=== PATIENT | male | born 1950 | race Caucasian/White ===

== ENCOUNTER 2017-03-28 19:27 | Emergency (ER) | payer MEDICARE, OTHER ==
[2017-03-28] MEDS ORDERED: Aspirin 81 MG Tab.Chew PO ONE (19:57)
[2017-03-28] MEDS ORDERED: Sodium Chloride 0.9% 1,000 ML IV SCH (20:00)
[2017-03-28] MEDS ORDERED: Metoprolol Tartrate 5 MG/5 ML SDV IVPUSH ONE (20:03)
[2017-03-28 20:20] LABS: CHLORIDE,CL 101 mmol/L (101-111); SODIUM,NA 136 mmol/L (135-145)
[2017-03-28] MEDS ORDERED: Iopamidol 612 MG/ML 100 ML Bottle IVPUSH ONE (20:35)
--- NOTE | 2017-03-28 21:09 | EDM.PDOC ---
ED HISTORY OF PRESENT ILLNESS - General Chief Complaint: Chest Pain Stated Complaint: CHEST PAINS Time Seen by Provider: 03/28/17 19:49 Source of Information: Reports: Patient History Limitations: Reports: No limitations - History of Present Illness INITIAL COMMENTS - FREE TEXT/NARRATIVE: c/o abdominal pain starting at 11 and heart pounding, chills with tremors better aftery lying down under coats woke hour later sweating. intermittent sharp chest pain across right chest last few seconds discomfort general abdomen below ribs. notes cyclic similar symptoms every 3 weeks for past 3 months with episodes of atrial fib after feeling better has converted. No blood thinners, not on daily aspirin. Started Metoprolol. feeling fatigued since starting with decreased exercise tolerance. Timing/Duration: Reports: Hour(s): Severity: mild Location, General: Reports: chest, abdomen Quality: Reports: Ache (12/05), Dull Associated Symptoms (General): Reports: fever/chills (with rigors), loss of appetite. Denies: cough, nausea/vomiting - Related Data Allergies/ADRs: Allergies Allergy/AdvReac Type Severity Reaction Status Date / Time No Known Allergies Allergy Verified 03/28/17 19:47 Home Meds: Home Meds Metoprolol Succinate [Toprol XL] 1 tab PO DAILY 03/28/17 [History] Past Medical History Cardiovascular History: Reports: Afib Social & Family History - Tobacco Use Smoking Status *Q: Former Smoker Used Tobacco, but Quit: No Second Hand Smoke Exposure: No - Caffeine Use Caffeine Use: Reports: Coffee - Recreational Drug Use Recreational Drug Use: No ED ROS GENERAL - Review of Systems Review Of Systems: See Below Constitutional: Reports: chills HEENT: Reports: No symptoms Respiratory: Reports: No Symptoms Cardiovascular: Reports: Chest pain (points epigastric ), Dyspnea on exertion ( since starting metoprolol), Palpitations. Denies: Edema, Lightheadedness, Orthopnea GI/Abdominal: Reports: Abdominal pain (generalized). Denies: Constipation, Diarrhea, Distension, Nausea : Reports: no symptoms Musculoskeletal: Reports: no symptoms Neurological: Reports: No Symptoms Psychiatric: Reports: No symptoms ED EXAM, GENERAL - Physical Exam Exam: See Below Exam Limited By: No limitations General Appearance: alert, anxious, mild distress Eye Exam: bilateral eye: EOMI, PERRL Ears: normal external exam, normal TMs Nose: normal inspection Throat/Mouth: Normal inspection Head: atraumatic, normocephalic Neck: normal inspection Respiratory/Chest: no respiratory distress, lungs clear, normal breath sounds Cardiovascular: normal peripheral pulses, tachycardia, irregularly irregular ( Atrial fib with vriable rate, sustained 110-150 on admission, ) GI/Abdominal: normal bowel sounds, soft, tender (mid midd upper greater RUQ with deep palpation) Back Exam: normal inspection Extremities: normal inspection Neurological: alert, oriented, normal cognition Psychiatric: normal affect Skin Exam: Warm, Dry, Intact, Normal color. No: Jaundice Course - Vital Signs Last Recorded V/S: Last Vital Signs Temp 97.6 F 03/28/17 19:46 Pulse 91 03/28/17 21:37 Resp 20 03/28/17 19:46 BP 121/77 03/28/17 21:37 Pulse Ox 98 03/28/17 19:46 - Orders/Labs/Meds Orders: Active Orders 24 hr Category Date Time Status EKG 12 Lead [EKG Documentation Completion] [RC] URGENT Care 03/28/17 19:58 Active CULTURE BLOOD [BC] Stat Lab 03/28/17 20:16 Received CULTURE BLOOD [BC] Stat Lab 03/28/17 20:19 Received Blood Culture x2 Reflex Set [OM.PC] Stat Oth 03/28/17 19:57 Ordered Labs: Laboratory Tests 03/28/17 03/28/17 03/28/17 Range/Units 19:50 19:50 19:50 WBC 8.8 (5.0-10.0) 10^3/uL RBC 4.79 (4.6-6.2) 10^6/uL Hgb 14.9 (14.0-18.0) g/dL Hct 43.9 (40.0-54.0) % MCV 91.6 (80-100) fL MCH 31.1 (27.0-34.0) pg MCHC 33.9 (33.0-35.0) g/dL Plt Count 172 (150-450) 10^3/uL Neut % (Auto) 86.3 H (42.2-75.2) % Lymph % (Auto) 5.2 L (20.5-50.1) % [place] % (Auto) 8.2 H (2-8) % Eos % (Auto) 0.1 L (1.0-3.0) % Baso % (Auto) 0.2 (0.0-1.0) % PT (9.0-12.0) SEC INR (0.9-1.2) Sodium 136 (135-145) mmol/L Potassium 4.3 (3.6-5.0) mmol/L Chloride 101 (101-111) mmol/L Carbon Dioxide 25.0 (21.0-31.0) mmol/L Anion Gap 14.3 BUN 10 (7-18) mg/dL Creatinine 0.8 (0.6-1.3) mg/dL Est Cr Clr Drug Dosing 97.00 mL/min Estimated GFR (MDRD) > 60 BUN/Creatinine Ratio 12.50 Glucose 153 H (74-105) mg/dL Calcium 9.0 (8.4-10.2) mg/dl Total Bilirubin 4.4 H (0.2-1.0) mg/dL AST 440 H (10-42) IU/L ALT 451 H (10-60) IU/L Alkaline Phosphatase 87 (42-121) IU/L CK-MB (CK-2) 0.60 (0.4-4.7) ng/mL Troponin I < 0.02 (0.00-0.02) ng/ml Total Protein 6.9 (6.7-8.2) g/dl Albumin 4.0 (3.2-5.5) g/dl Globulin 2.9 Albumin/Globulin Ratio 1.38 Amylase 24 L (28-100) U/L Lipase 24 (22-51) U/L 03/28/17 Range/Units 19:50 WBC (5.0-10.0) 10^3/uL RBC (4.6-6.2) 10^6/uL Hgb (14.0-18.0) g/dL Hct (40.0-54.0) % MCV (80-100) fL MCH (27.0-34.0) pg MCHC (33.0-35.0) g/dL Plt Count (150-450) 10^3/uL Neut % (Auto) (42.2-75.2) % Lymph % (Auto) (20.5-50.1) % [place] % (Auto) (2-8) % Eos % (Auto) (1.0-3.0) % Baso % (Auto) (0.0-1.0) % PT 10.5 (9.0-12.0) SEC INR 1.0 (0.9-1.2) Sodium (135-145) mmol/L Potassium (3.6-5.0) mmol/L Chloride (101-111) mmol/L Carbon Dioxide (21.0-31.0) mmol/L Anion Gap BUN (7-18) mg/dL Creatinine (0.6-1.3) mg/dL Est Cr Clr Drug Dosing mL/min Estimated GFR (MDRD) BUN/Creatinine Ratio Glucose (74-105) mg/dL Calcium (8.4-10.2) mg/dl Total Bilirubin (0.2-1.0) mg/dL AST (10-42) IU/L ALT (10-60) IU/L Alkaline Phosphatase (42-121) IU/L CK-MB (CK-2) (0.4-4.7) ng/mL Troponin I (0.00-0.02) ng/ml Total Protein (6.7-8.2) g/dl Albumin (3.2-5.5) g/dl Globulin Albumin/Globulin Ratio Amylase (28-100) U/L Lipase (22-51) U/L Meds: Medications Discontinued Medications Generic Name Dose Route Start Last Admin Trade Name Freq PRN Reason Stop Dose Admin Aspirin 324 mg 03/28/17 19:57 03/28/17 20:13 Aspirin PO 03/28/17 19:58 324 mg ONETIME ONE Administration Diltiazem HCl 25 mg 03/28/17 21:12 03/28/17 21:27 Diltiazem IVPUSH 03/28/17 21:13 25 mg ONETIME ONE Administration Sodium Chloride 1,000 mls @ 150 mls/hr 03/28/17 20:00 03/28/17 20:13 Normal Saline IV 150 mls/hr ASDIRECTED CHRISSY Administration Diltiazem HCl 100 mg/ Sodium 100 mls @ 5 mls/hr 03/28/17 21:14 03/28/17 21:37 Chloride IV 03/29/17 17:13 5 mls/hr TITRATE ONE Administration Protocol 5 MG/HR Iopamidol 100 ml 03/28/17 20:35 03/28/17 21:26 Isovue-300 (61%) IVPUSH 03/28/17 20:36 Not Given ONETIME ONE Metoprolol Tartrate 5 mg 03/28/17 20:03 03/28/17 20:13 Lopressor IVPUSH 03/28/17 20:04 5 mg ONETIME ONE Administration - Re-Assessments/Exams Free Text/Narrative Re-Assessment/Exam: 03/29/17 05:01 Decrease HR with metoprolol 70's to 120. TC consult [facility] ED. DrUrsula accepting of patient in transfer for further evaluation of Recent onset atrial fibrillation - not anticoagulated to date with poor rate control , significant elevation of LFT's with document gallbladder disease on MR Ursula Guzmán drip initiated prior to transport via [facility]. Tx in stable condition. Departure - Departure Time of Disposition: 22:00 Disposition: DC/Tfer to Acute Hospital 02 Reason for Transfer *Q: Other Condition: fair Clinical Impression: Atypical chest pain, Elevated LFTs Atrial fibrillation Qualifiers: Atrial fibrillation type: paroxysmal Qualified Code(s): I48.0 - Paroxysmal atrial fibrillation Referrals: Ulises Thompson MD [Primary Care Provider] - Forms: ED Department Discharge - My Orders Last 24 Hours: My Active Orders 03/28/17 19:57 Blood Culture x2 Reflex Set [OM.PC] Stat 03/28/17 19:58 EKG 12 Lead [EKG Documentation Completion] [RC] URGENT 03/28/17 20:16 CULTURE BLOOD [BC] Stat 03/28/17 20:19 CULTURE BLOOD [BC] Stat - Assessment/Plan Last 24 Hours: My Active Orders 03/28/17 19:57 Blood Culture x2 Reflex Set [OM.PC] Stat 03/28/17 19:58 EKG 12 Lead [EKG Documentation Completion] [RC] URGENT 03/28/17 20:16 CULTURE BLOOD [BC] Stat 03/28/17 20:19 CULTURE BLOOD [BC] Stat
[2017-03-28] MEDS ORDERED: Diltiazem 25 MG/5 ML SDV IVPUSH ONE (21:12)
[2017-03-28] MEDS ORDERED: Diltiazem 100 MG in Sodium Chloride 0.9% 100 ML IV ONE (21:14)
[2017-03-28 21:38] VITALS: BP 121/77
--- NOTE | 2017-04-24 11:36 | EKG ---
03/28/2017- ASH ESCOTO - EKG per my reading shows atrial fibrillation with rapid ventricular rate around 150s. MOD /[id number]
== END 2017-03-28 22:00 ==
LOC: DL.ED 19:27
DX: I48.0 Paroxysmal atrial fibrillation (principal); R07.89 Other chest pain; R79.89 Other specified abnormal findings of blood chemistry; Z87.891 Personal history of nicotine dependence
CPT/HCPCS: 36415; 71010; 80053; 82150; 82553; 83690; 84484; 85025; 85610; 87040; 93005; 93010; 96361; 96374; 96375; 96376; 99285; A9270; J7030; J7050; J3490

== ENCOUNTER 2021-10-29 16:11 | Inpatient (IN) | payer OTHER ==
--- NOTE | 2021-10-29 16:48 | EDM.PDOC ---
ED HPI GENERAL MEDICAL PROBLEM - General Stated Complaint: AMBULANCE Time Seen by Provider: 10/29/21 16:40 Source of Information: Reports: Patient History Limitations: Reports: No Limitations - History of Present Illness INITIAL COMMENTS - FREE TEXT/NARRATIVE: 71 y/o M c/o sob, cough, nausea since . Pt was diagnosed with COVID using a home test on . His sob and cough have gotten worse over the last few days. Pt reportedly is on eloquis for afib x and was at home in his chair when he got dizzy and fell out of his chair and hit his head on a stool. No loc. ems was called and brought pt to hospital. He has been using his wifes nebulizer at home with little relief. He reports decreased oral intake and urine output. Denies head pain, ctls pain, abd pn, ext pain. - Related Data Allergies Allergy/AdvReac Type Severity Reaction Status Date / Time No Known Allergies Allergy Verified 10/29/21 17:31 Home Meds: Home Meds Metoprolol Succinate [Toprol XL] 100 mg PO DAILY 03/28/17 [History] Aspirin [Adult Low Dose Aspirin EC] 81 mg PO DAILY 02/19/18 [History] Ibuprofen 200 mg PO ASDIRECTED PRN 02/19/18 [History] Apixaban [Eliquis] 5 mg PO BID 10/29/21 [History] Levothyroxine [Synthroid] 50 mcg PO ACBREAKFAST 10/29/21 [History] Past Medical History Cardiovascular History: Reports: Afib Social & Family History - Caffeine Use Caffeine Use: Reports: Coffee Review of Systems - Review of Systems Review Of Systems: Comprehensive ROS is negative, except as noted in HPI. ED EXAM, GENERAL - Physical Exam Exam: See Below Free Text/Narrative:: Primary Survey Airway: open and patient Breathing: regular without additional effort Circulation: no major bleeding noted Deformity: no deformity noted Expose: as appropriate GCS: 15 Secondary Survey HEENT Head: normocephalic, atraumatic Eyes: PERRLA Ears: no obvious trauma, canals open Nose: no deformity, no bleeding, mucosa moist Mouth: no noted trauma Throat: no abnormalities noted Neck: Supple, normal range of motion no cervical tenderness Chest: lung sounds were clear and equal bilaterally, Heart was RRR, no murmurs, rubs or gallop Abdomen: normoactive bowel sounds, no organomegally, no tenderness on palpation Pelvis: stable Extremities: CMS intact Provider Trauma Notes Arrival Time: GCS on Arrival: 15 C-collar present on arrival: no GCS at 1 hour: 15 Off spine board: na Time primary survey: Time secondary survey: Time C-collar cleared: na By: Time removed: na GCS on discharge: Exam Limited By: No Limitations General Appearance: Alert, Mild Distress Eye Exam: Bilateral Eye: PERRL Ears: Normal External Exam, Normal Canal, Hearing Grossly Normal, Normal TMs Nose: Normal Inspection Throat/Mouth: Other (no oral trauma, tongue dry and furrowed. ) Head: Atraumatic, Normocephalic Neck: Normal Inspection, Supple, Non-Tender, Full Range of Motion Respiratory/Chest: Respiratory Distress (tachypnea cough, course breath sounds in the bases) Cardiovascular: Normal Peripheral Pulses, Tachycardia, Irregularly Irregular Peripheral Pulses: 2+: Radial (L), Radial (R) GI/Abdominal: Soft, Non-Tender (Male) Exam: Deferred Rectal (Males) Exam: Deferred Back Exam: Normal Inspection, Full Range of Motion Extremities: Normal Inspection, Normal Range of Motion, Non-Tender, Normal Capillary Refill, No Pedal Edema Neurological: Alert, Oriented Psychiatric: Normal Affect, Normal Mood Skin Exam: Warm, Dry, Intact #1 Interpretation EKG Date: 10/29/21 Time: 16:37 Rhythm: A-Fib Rate (Beats/Min): 159 [place]: Normal P-Wave: Absent QRS: Normal ST-T: Normal QT: Normal EKG Interpretation Comments: afib RVR rate of 159, normal axis, no ectopy or st changes. Course - Orders/Labs/Meds Orders: Active Orders 24 hr Category Date Time Status Peripheral IV Care [RC] . DIRECTED Care 10/29/21 16:18 Active CORONAVIRUS COVID-19 ROM [MOLEC] Stat Lab 10/29/21 18:22 Ordered CULTURE BLOOD [BC] Stat Lab 10/29/21 17:22 Results CULTURE BLOOD [BC] Stat Lab 10/29/21 17:28 Received Diltiazem 125 mg Med 10/29/21 18:15 Active Sodium Chloride 0.9% [Normal Saline] 100 ml IV TITRATE Sodium Chloride 0.9% [Saline Flush] Med 10/29/21 16:17 Active 10 ml FLUSH ASDIRECTED PRN Blood Culture x2 Reflex Set [OM.PC] Stat Oth 10/29/21 16:18 Ordered Peripheral IV Insertion Adult [OM.PC] Routine Oth 10/29/21 16:17 Ordered Medication Orders Diltiazem HCl 125 mg/ Sodium (Chloride) 125 mls @ 5 mls/hr IV TITRATE CHRISSY; Protocol Sodium Chloride (Sodium Chloride 0.9% 10 Ml Syringe) 10 ml FLUSH ASDIRECTED PRN PRN Reason: Keep Vein Open Labs: Laboratory Tests 10/29/21 10/29/21 10/29/21 Range/Units 17:22 17:22 17:22 WBC 5.1 (5.0-10.0) 10^3/uL RBC 4.50 L (4.6-6.2) 10^6/uL Hgb 14.0 (14.0-18.0) g/dL Hct 42.1 (40.0-54.0) % MCV 93.6 (80-100) fL MCH 31.1 (27.0-34.0) pg MCHC 33.3 (33.0-35.0) g/dL Plt Count 128 L (150-450) 10^3/uL Neut % (Auto) 79.9 H (42.2-75.2) % Lymph % (Auto) 11.9 L (20.5-50.1) % [place] % (Auto) 8.0 (2-8) % Eos % (Auto) 0.0 L (1.0-3.0) % Baso % (Auto) 0.2 (0.0-1.0) % Sodium 136 (136-145) mmol/L Potassium 3.7 (3.5-5.1) mmol/L Chloride 100 (98-107) mmol/L Carbon Dioxide 26 (21-32) mmol/L Anion Gap 13.7 H (7-13) mEq/L BUN 25 H (7-18) mg/dL Creatinine 0.85 (0.70-1.30) mg/dL Est Cr Clr Drug Dosing TNP Estimated GFR (MDRD) > 60 BUN/Creatinine Ratio 29.4 (No establ ref range) Glucose 150 H (70-99) mg/dL Lactic Acid 1.1 (0.4-2.0) mmol/L Calcium 8.3 L (8.5-10.1) mg/dL Magnesium 2.0 (1.8-2.4) mg/dL Total Bilirubin 0.5 (0.2-1.0) mg/dL AST 36 (15-37) U/L ALT 41 (16-63) U/L Alkaline Phosphatase 54 (46-116) U/L C-Reactive Protein 3.5 H (0.0-0.9) mg/dL Total Protein 6.3 L (6.4-8.2) g/dL Albumin 2.9 L (3.4-5.0) g/dL Globulin 3.4 Albumin/Globulin Ratio 0.85 Ethyl Alcohol < 3 (0) mg/dL Meds: Medications Generic Name Dose Route Start Last Admin Trade Name Freq PRN Reason Stop Dose Admin Diltiazem HCl 125 mg/ Sodium 125 mls @ 5 mls/hr 10/29/21 18:15 Chloride IV TITRATE CHRISSY Protocol 5 MG/HR Sodium Chloride 10 ml 10/29/21 16:17 Sodium Chloride 0.9% 10 Ml Syringe FLUSH ASDIRECTED PRN Keep Vein Open Discontinued Medications Generic Name Dose Route Start Last Admin Trade Name Freq PRN Reason Stop Dose Admin Aspirin 324 mg 10/29/21 16:53 Aspirin 81 Mg Tab.Chew PO 10/29/21 16:54 ONETIME ONE Diltiazem HCl 20 mg 10/29/21 17:06 Diltiazem 25 Mg/5 Ml Sdv IVPUSH 10/29/21 17:07 ONETIME ONE Methylprednisolone Sodium Succinate 125 mg 10/29/21 17:32 Methylprednisolone Sodium Succinate 125 Mg/2 Ml Sdv IVPUSH 10/29/21 17:33 ONETIME ONE Ondansetron HCl 4 mg 10/29/21 17:06 Ondansetron 4 Mg/2 Ml Sdv IVPUSH 10/29/21 17:07 ONETIME ONE - Re-Assessments/Exams Free Text/Narrative Re-Assessment/Exam: 10/29/21 18:44 I discussed the pt with Dr. Alegria who agreed to admit the pt for treatment of his COVID symptoms and his afib RVR. Departure - Departure Time of Disposition: 18:45 (Dr. Alegria) Disposition: Admitted As Inpatient 65 Condition: Fair Clinical Impression: Atrial fibrillation with RVR, COVID-19 - Discharge Information *PRESCRIPTION DRUG MONITORING PROGRAM REVIEWED*: Not Applicable *COPY OF PRESCRIPTION DRUG MONITORING REPORT IN PATIENT ERICK: Not Applicable - My Orders Last 24 Hours: My Active Orders 10/29/21 16:17 Sodium Chloride 0.9% [Saline Flush] 10 ml FLUSH ASDIRECTED PRN Peripheral IV Insertion Adult [OM.PC] Routine 10/29/21 16:18 Peripheral IV Care [RC] . DIRECTED Blood Culture x2 Reflex Set [OM.PC] Stat 10/29/21 17:22 CULTURE BLOOD [BC] Stat 10/29/21 17:28 CULTURE BLOOD [BC] Stat 10/29/21 18:15 Diltiazem 125 mg Sodium Chloride 0.9% [Normal Saline] 100 ml IV TITRATE 10/29/21 18:22 CORONAVIRUS COVID-19 ROM [MOLEC] Stat - Assessment/Plan Last 24 Hours: My Active Orders 10/29/21 16:17 Sodium Chloride 0.9% [Saline Flush] 10 ml FLUSH ASDIRECTED PRN Peripheral IV Insertion Adult [OM.PC] Routine 10/29/21 16:18 Peripheral IV Care [RC] . DIRECTED Blood Culture x2 Reflex Set [OM.PC] Stat 10/29/21 17:22 CULTURE BLOOD [BC] Stat 10/29/21 17:28 CULTURE BLOOD [BC] Stat 10/29/21 18:15 Diltiazem 125 mg Sodium Chloride 0.9% [Normal Saline] 100 ml IV TITRATE 10/29/21 18:22 CORONAVIRUS COVID-19 ROM [MOLEC] Stat
[2021-10-29] MEDS ORDERED: Aspirin 81 MG Tab.Chew PO ONE (16:53)
[2021-10-29] MEDS ORDERED: Diltiazem 25 MG/5 ML SDV IVPUSH ONE ×3 (17:06→20:48)
[2021-10-29] MEDS ORDERED: Ondansetron 4 MG/2 ML SDV IVPUSH ONE (17:06)
--- NOTE | 2021-10-29 17:24 | CT ---
PROCEDURE INFORMATION: Exam: CT Head Without Contrast Exam date and time: 10/29/2021 4:30 PM Age: 71 years old Clinical indication: Other: Fell hit head on blood thinners TECHNIQUE: Imaging protocol: Computed tomography of the head without contrast. Radiation optimization: All CT scans at this facility use at least one of these dose optimization techniques: automated exposure control; mA and/or kV adjustment per patient size (includes targeted exams where dose is matched to clinical indication); or iterative reconstruction. COMPARISON: No relevant prior studies available. FINDINGS: Brain: Normal. No hemorrhage. Unremarkable white matter. No mass effect. Cerebral ventricles: No ventriculomegaly. Paranasal sinuses: Mucosal thickening in the ethmoid air cells. Mastoid air cells: Visualized mastoid air cells are well aerated. Bones/joints: Unremarkable. No acute fracture. Soft tissues: Unremarkable. IMPRESSION: No acute intracranial pathology
--- NOTE | 2021-10-29 17:25 | CR ---
PROCEDURE INFORMATION: Exam: XR Chest Exam date and time: 10/29/2021 4:42 PM Age: 71 years old Clinical indication: Other: SOB, cough, covid+; Additional info: SOB, coguh, covid+ TECHNIQUE: Imaging protocol: XR of the chest. Views: 1 view. COMPARISON: CR Chest 1V Frontal 03/28/2017 8:12 PM FINDINGS: Lungs: Unremarkable. No consolidation. Pleural spaces: Unremarkable. No pleural effusion. No pneumothorax. Heart/Mediastinum: Unremarkable. No cardiomegaly. Bones/joints: Unremarkable. IMPRESSION: No acute findings.
[2021-10-29] MEDS ORDERED: methylPREDNISolone Sodium Succinate 125 MG/2 ML SDV IVPUSH ONE (17:32)
[2021-10-29 18:01] LABS: ANION GAP 13.7 mEq/L (7-13); CHLORIDE,CL 100 mmol/L (98-107); SODIUM,NA 136 mmol/L (136-145)
[2021-10-29] MEDS: Diltiazem 125 MG in Sodium Chloride 0.9% 100 ML IV SCH (18:48)
[2021-10-29] MEDS: Sodium Chloride 0.9% 10 ML Syringe FLUSH PRN (18:50)
[2021-10-29] MEDS ORDERED: Polyethylene Glycol 3350 Powder 17 GM Packet PO PRN (20:03)
[2021-10-29] MEDS ORDERED: Ondansetron 4 MG/2 ML SDV IVPUSH PRN (20:03)
[2021-10-29] MEDS ORDERED: Acetaminophen 325 MG Tab PO PRN (20:03)
[2021-10-29] MEDS ORDERED: Sodium Chloride 0.9% 10 ML Syringe FLUSH PRN (20:03)
--- NOTE | 2021-10-29 20:03 | PCM.HP ---
H&P History of Present Illness - General Date of Service: 10/29/21 Admit Problem/Dx: Admission Diagnosis/Problem Admission Diagnosis/Problem Atrial fibrillation with rapid ventricular response Source of Information: Patient, Provider History Limitations: Reports: No Limitations - History of Present Illness Initial Comments - Free Text/Narative: Ottoniel is a 71 year old man with PMH significant for obesity, acquired hypothyroidism, paroxysmal atrial fibrillation and recent diagnosis of COVID 19 on 10/20/21 presented to the ED after experiencing a few hours of palpitations. He had associated lightheaded and dizzy feeling. He tried to rest at home but it wasn't effective and he started to feel worse. He initially associated his palpitations with COVID 19 (for which he has had acid reflux, decreased taste sensation and decreased appetite since onset) but with time realized it was similar to sensation he has had in the past during periods of rapid rate. Onset of Symptoms: Reports: Today, Sudden Duration of Symptoms: Reports: Hour(s):, Getting Worse Location: Reports: Chest Quality: Reports: Other (palpitations) Severity: Moderate Improves with: Reports: None Worsens with: Reports: Movement Associated Symptoms: Reports: No Other Symptoms - Related Data Allergies/Adverse Reactions: Allergies Allergy/AdvReac Type Severity Reaction Status Date / Time No Known Allergies Allergy Verified 10/29/21 17:31 Home Medications: Home Meds Metoprolol Succinate [Toprol XL] 100 mg PO DAILY 03/28/17 [History] Aspirin [Adult Low Dose Aspirin EC] 81 mg PO DAILY 02/19/18 [History] Ibuprofen 200 mg PO ASDIRECTED PRN 02/19/18 [History] Apixaban [Eliquis] 5 mg PO BID 10/29/21 [History] Levothyroxine [Synthroid] 50 mcg PO ACBREAKFAST 10/29/21 [History] Past Medical History Cardiovascular History: Reports: Afib Social & Family History - Tobacco Use Tobacco Use Status *Q: Never Tobacco User - Caffeine Use Caffeine Use: Reports: Coffee - Living Situation & Occupation Living situation: Reports: , with Spouse Occupation: Retired H&P Review of Systems - Review of Systems: Review Of Systems: See Below General: Reports: Malaise, Decreased Appetite HEENT: Reports: No Symptoms Pulmonary: Reports: Cough. Denies: Shortness of Breath, Wheezing, Pleuritic Chest Pain, Hemoptysis Cardiovascular: Reports: Palpitations, Dyspnea on Exertion. Denies: Chest Pain, Lightheadedness Gastrointestinal: Reports: Decreased Appetite, Other (acid taste in mouth). Denies: Abdominal Pain, Distension, Nausea, Vomiting Genitourinary: Reports: No Symptoms Musculoskeletal: Reports: No Symptoms Skin: Reports: No Symptoms Neurological: Reports: No Symptoms Hematologic/Lymphatic: Reports: No Symptoms Immunologic: Reports: No Symptoms Exam - Exam Exam: See Below - Exam Quality Assessment: DVT Prophylaxis. No: Supplemental Oxygen, Urinary Catheter, Skin Breakdown General: Alert, Oriented, Cooperative, Mild Distress HEENT: EOMI, Pupils Equal Neck: Supple. No: JVD Lungs: Decreased Breath Sounds (throughout bilateral mid to bases), Rales (scattered in upper to mid airways). No: Rhonchi, Rub, Stridor, Wheezing GI/Abdominal Exam: Soft, Non-Tender, Other (obese) (Male) Exam: Deferred Rectal (Males) Exam: Deferred Back Exam: Full Range of Motion Extremities: Normal Range of Motion, Non-Tender, No Pedal Edema Skin: Warm, Dry Neuro Extensive - Mental Status: Oriented x3, Normal Mood/Affect, Normal Cognition Neuro Extensive - Motor, Sensory, Reflexes: Normal Gait Psychiatric: Normal Affect, Normal Mood - Patient Data Lab Results Last 24 hrs: Laboratory Results - last 24 hr 10/29/21 10/29/21 10/29/21 Range/Units 17:22 17:22 17:22 WBC 5.1 (5.0-10.0) 10^3/uL RBC 4.50 L (4.6-6.2) 10^6/uL Hgb 14.0 (14.0-18.0) g/dL Hct 42.1 (40.0-54.0) % MCV 93.6 (80-100) fL MCH 31.1 (27.0-34.0) pg MCHC 33.3 (33.0-35.0) g/dL Plt Count 128 L (150-450) 10^3/uL Neut % (Auto) 79.9 H (42.2-75.2) % Lymph % (Auto) 11.9 L (20.5-50.1) % [place] % (Auto) 8.0 (2-8) % Eos % (Auto) 0.0 L (1.0-3.0) % Baso % (Auto) 0.2 (0.0-1.0) % Sodium 136 (136-145) mmol/L Potassium 3.7 (3.5-5.1) mmol/L Chloride 100 (98-107) mmol/L Carbon Dioxide 26 (21-32) mmol/L Anion Gap 13.7 H (7-13) mEq/L BUN 25 H (7-18) mg/dL Creatinine 0.85 (0.70-1.30) mg/dL Est Cr Clr Drug Dosing TNP Estimated GFR (MDRD) > 60 BUN/Creatinine Ratio 29.4 (No establ ref range) Glucose 150 H (70-99) mg/dL Lactic Acid 1.1 (0.4-2.0) mmol/L Calcium 8.3 L (8.5-10.1) mg/dL Magnesium 2.0 (1.8-2.4) mg/dL Total Bilirubin 0.5 (0.2-1.0) mg/dL AST 36 (15-37) U/L ALT 41 (16-63) U/L Alkaline Phosphatase 54 (46-116) U/L C-Reactive Protein 3.5 H (0.0-0.9) mg/dL Total Protein 6.3 L (6.4-8.2) g/dL Albumin 2.9 L (3.4-5.0) g/dL Globulin 3.4 Albumin/Globulin Ratio 0.85 Ethyl Alcohol < 3 (0) mg/dL SARS CoV-2 RNA Rapid ROM (NEGATIVE) 10/29/21 Range/Units 18:40 WBC (5.0-10.0) 10^3/uL RBC (4.6-6.2) 10^6/uL Hgb (14.0-18.0) g/dL Hct (40.0-54.0) % MCV (80-100) fL MCH (27.0-34.0) pg MCHC (33.0-35.0) g/dL Plt Count (150-450) 10^3/uL Neut % (Auto) (42.2-75.2) % Lymph % (Auto) (20.5-50.1) % [place] % (Auto) (2-8) % Eos % (Auto) (1.0-3.0) % Baso % (Auto) (0.0-1.0) % Sodium (136-145) mmol/L Potassium (3.5-5.1) mmol/L Chloride (98-107) mmol/L Carbon Dioxide (21-32) mmol/L Anion Gap (7-13) mEq/L BUN (7-18) mg/dL Creatinine (0.70-1.30) mg/dL Est Cr Clr Drug Dosing Estimated GFR (MDRD) BUN/Creatinine Ratio (No establ ref range) Glucose (70-99) mg/dL Lactic Acid (0.4-2.0) mmol/L Calcium (8.5-10.1) mg/dL Magnesium (1.8-2.4) mg/dL Total Bilirubin (0.2-1.0) mg/dL AST (15-37) U/L ALT (16-63) U/L Alkaline Phosphatase (46-116) U/L C-Reactive Protein (0.0-0.9) mg/dL Total Protein (6.4-8.2) g/dL Albumin (3.4-5.0) g/dL Globulin Albumin/Globulin Ratio Ethyl Alcohol (0) mg/dL SARS CoV-2 RNA Rapid ROM Positive H (NEGATIVE) Result Diagrams: 10/29/21 17:22 10/29/21 17:22 Mj Results Last 24 hrs: Microbiology 10/29/21 17:22 Anaerobic Blood Culture - Final Blood - Arm, Right Problem List Initiated/Reviewed/Updated: Yes Orders Last 24hrs: Active Orders 24 hr Category Date Time Status Admission Diagnosis [ADT] Stat ADT 10/29/21 18:46 Ordered Admission Status [Patient Status] [ADT] Routine ADT 10/29/21 18:46 Active Peripheral IV Care [RC] . DIRECTED Care 10/29/21 16:18 Active CULTURE BLOOD [BC] Stat Lab 10/29/21 17:22 Results CULTURE BLOOD [BC] Stat Lab 10/29/21 17:28 Received Diltiazem 125 mg Med 10/29/21 18:15 Active Sodium Chloride 0.9% [Normal Saline] 100 ml IV TITRATE Sodium Chloride 0.9% [Saline Flush] Med 10/29/21 16:17 Active 10 ml FLUSH ASDIRECTED PRN Blood Culture x2 Reflex Set [OM.PC] Stat Oth 10/29/21 16:18 Ordered Peripheral IV Insertion Adult [OM.PC] Routine Oth 10/29/21 16:17 Ordered Medication Orders Diltiazem HCl 125 mg/ Sodium (Chloride) 125 mls @ 5 mls/hr IV TITRATE CHRISSY; Protocol Last Titration: 10/29/21 19:23 Dose: 10 mg/hr, 10 mls/hr Documented by: Admin: 10/29/21 18:48 Dose: 5 mg/hr, 5 mls/hr Documented by: EVE Sodium Chloride (Sodium Chloride 0.9% 10 Ml Syringe) 10 ml FLUSH ASDIRECTED PRN PRN Reason: Keep Vein Open Last Admin: 10/29/21 18:50 Dose: 10 ml Documented by: EVE Assessment/Plan Comment:: ACTIVE PROBLEMS: Atrial fibrillation with RVR Hx of paroxysmal atrial fibrillation. - While in ED rate was in the 150-160 range. cardizem push 20mg given once with minimal improvement after which cardizem gtt was started. Plan: - continue cardizem gtt titration with parameters in order - continue toprol XL 100mg once daily for rate control - eliquis 5mg bid for anticoagulation - telemetry - add on TSH COVID 19 viral infection - received solumedrol 125mg IV in the ED. - currently requiring no supplemental oxygen so does not qualify for any interventions. will continue to monitor - IS every 2 hours while awake - isolation CHRONIC CONDITIONS: - acquired hypothyroidism: continue levothyroxine 50mg every morning - Obesity: BMI 34 on admit
[2021-10-29] MEDS: Apixaban 5 MG Tab PO SCH (21:15)
[2021-10-30] MEDS: Diltiazem 125 MG in Sodium Chloride 0.9% 100 ML IV SCH (06:06)
[2021-10-30] MEDS: Levothyroxine 50 MCG Tab PO SCH (06:07)
[2021-10-30 06:35] LABS: CHLORIDE,CL 101 mmol/L (98-107); SODIUM,NA 138 mmol/L (136-145)
[2021-10-30 06:50] LABS: ANION GAP 16.9 mEq/L (7-13); HEMOGLOBIN A1C 6.3 % (<5.7)
[2021-10-30] MEDS: Aspirin 81 MG Tab.EC PO SCH (08:16)
[2021-10-30] MEDS: Apixaban 5 MG Tab PO SCH ×2 (08:16→20:51)
[2021-10-30] MEDS ORDERED: Metoprolol Succinate 50 MG Tab.ER PO SCH (09:00)
[2021-10-30] MEDS ORDERED: REMDESIVIR 200 MG in Sodium Chloride 0.9% 250 ML IV ONE (12:14)
--- NOTE | 2021-10-30 13:38 | PCM.PN ---
- General Info Date of Service: 10/30/21 Admission Dx/Problem (Free Text): Admission Diagnosis/Problem Admission Diagnosis/Problem Atrial fibrillation with rapid ventricular response Functional Status: Reports: Pain Controlled, Tolerating Diet, Incentive Spirometry - Review of Systems General: Reports: No Symptoms, Fatigue HEENT: Reports: Glasses Pulmonary: Reports: Shortness of Breath, Cough, Sputum. Denies: Pleuritic Chest Pain, Hemoptysis, Wheezing Cardiovascular: Reports: Palpitations, Dyspnea on Exertion. Denies: Edema, Lightheadedness Gastrointestinal: Reports: Decreased Appetite, Diarrhea. Denies: Abdominal Pain, Constipation, Nausea, Vomiting Genitourinary: Reports: No Symptoms Musculoskeletal: Reports: No Symptoms Skin: Reports: No Symptoms Neurological: Reports: No Symptoms Psychiatric: Reports: No Symptoms - Patient Data Vitals - Most Recent: Last Vital Signs Temp 96.2 F L 10/30/21 08:15 Pulse 91 10/30/21 08:16 Resp 17 10/30/21 08:15 BP 121/95 H 10/30/21 08:16 Pulse Ox 95 10/30/21 08:15 Weight - Most Recent: 248 lb 14.4 oz I&O - Last 24 Hours: Intake & Output 10/29/21 10/30/21 10/30/21 22:59 06:59 14:59 Intake Total 500 125 500 Balance 500 125 500 Lab Results Last 24 Hours: Laboratory Results - last 24 hr 10/29/21 10/29/21 10/29/21 Range/Units 17:22 17:22 17:22 WBC 5.1 (5.0-10.0) 10^3/uL RBC 4.50 L (4.6-6.2) 10^6/uL Hgb 14.0 (14.0-18.0) g/dL Hct 42.1 (40.0-54.0) % MCV 93.6 (80-100) fL MCH 31.1 (27.0-34.0) pg MCHC 33.3 (33.0-35.0) g/dL Plt Count 128 L (150-450) 10^3/uL Neut % (Auto) 79.9 H (42.2-75.2) % Lymph % (Auto) 11.9 L (20.5-50.1) % [place] % (Auto) 8.0 (2-8) % Eos % (Auto) 0.0 L (1.0-3.0) % Baso % (Auto) 0.2 (0.0-1.0) % Sodium 136 (136-145) mmol/L Potassium 3.7 (3.5-5.1) mmol/L Chloride 100 (98-107) mmol/L Carbon Dioxide 26 (21-32) mmol/L Anion Gap 13.7 H (7-13) mEq/L BUN 25 H (7-18) mg/dL Creatinine 0.85 (0.70-1.30) mg/dL Est Cr Clr Drug Dosing TNP Estimated GFR (MDRD) > 60 BUN/Creatinine Ratio 29.4 (No establ ref range) Glucose 150 H (70-99) mg/dL Hemoglobin A1c (<5.7) % Lactic Acid 1.1 (0.4-2.0) mmol/L Calcium 8.3 L (8.5-10.1) mg/dL Magnesium 2.0 (1.8-2.4) mg/dL Total Bilirubin 0.5 (0.2-1.0) mg/dL Direct Bilirubin (0.0-0.2) mg/dL AST 36 (15-37) U/L ALT 41 (16-63) U/L Alkaline Phosphatase 54 (46-116) U/L C-Reactive Protein 3.5 H (0.0-0.9) mg/dL Total Protein 6.3 L (6.4-8.2) g/dL Albumin 2.9 L (3.4-5.0) g/dL Globulin 3.4 Albumin/Globulin Ratio 0.85 TSH, Ultra Sensitive (0.36-3.74) uIU/mL Ethyl Alcohol < 3 (0) mg/dL SARS CoV-2 RNA Rapid ROM (NEGATIVE) 10/29/21 10/29/21 10/30/21 Range/Units 17:22 18:40 05:45 WBC 3.5 L (5.0-10.0) 10^3/uL RBC 4.53 L (4.6-6.2) 10^6/uL Hgb 14.3 (14.0-18.0) g/dL Hct 42.5 (40.0-54.0) % MCV 93.8 (80-100) fL MCH 31.6 (27.0-34.0) pg MCHC 33.6 (33.0-35.0) g/dL Plt Count 120 L (150-450) 10^3/uL Neut % (Auto) (42.2-75.2) % Lymph % (Auto) (20.5-50.1) % [place] % (Auto) (2-8) % Eos % (Auto) (1.0-3.0) % Baso % (Auto) (0.0-1.0) % Sodium (136-145) mmol/L Potassium (3.5-5.1) mmol/L Chloride (98-107) mmol/L Carbon Dioxide (21-32) mmol/L Anion Gap (7-13) mEq/L BUN (7-18) mg/dL Creatinine (0.70-1.30) mg/dL Est Cr Clr Drug Dosing Estimated GFR (MDRD) BUN/Creatinine Ratio (No establ ref range) Glucose (70-99) mg/dL Hemoglobin A1c (<5.7) % Lactic Acid (0.4-2.0) mmol/L Calcium (8.5-10.1) mg/dL Magnesium (1.8-2.4) mg/dL Total Bilirubin (0.2-1.0) mg/dL Direct Bilirubin (0.0-0.2) mg/dL AST (15-37) U/L ALT (16-63) U/L Alkaline Phosphatase (46-116) U/L C-Reactive Protein (0.0-0.9) mg/dL Total Protein (6.4-8.2) g/dL Albumin (3.4-5.0) g/dL Globulin Albumin/Globulin Ratio TSH, Ultra Sensitive 1.02 (0.36-3.74) uIU/mL Ethyl Alcohol (0) mg/dL SARS CoV-2 RNA Rapid ROM Positive H (NEGATIVE) 10/30/21 10/30/21 10/30/21 Range/Units 05:45 05:45 05:45 WBC (5.0-10.0) 10^3/uL RBC (4.6-6.2) 10^6/uL Hgb (14.0-18.0) g/dL Hct (40.0-54.0) % MCV (80-100) fL MCH (27.0-34.0) pg MCHC (33.0-35.0) g/dL Plt Count (150-450) 10^3/uL Neut % (Auto) (42.2-75.2) % Lymph % (Auto) (20.5-50.1) % [place] % (Auto) (2-8) % Eos % (Auto) (1.0-3.0) % Baso % (Auto) (0.0-1.0) % Sodium 138 (136-145) mmol/L Potassium 3.9 (3.5-5.1) mmol/L Chloride 101 (98-107) mmol/L Carbon Dioxide 24 (21-32) mmol/L Anion Gap 16.9 H (7-13) mEq/L BUN 25 H (7-18) mg/dL Creatinine 0.85 (0.70-1.30) mg/dL Est Cr Clr Drug Dosing 83.67 Estimated GFR (MDRD) > 60 BUN/Creatinine Ratio (No establ ref range) Glucose 257 H (70-99) mg/dL Hemoglobin A1c 6.3 H (<5.7) % Lactic Acid (0.4-2.0) mmol/L Calcium 8.5 (8.5-10.1) mg/dL Magnesium 2.3 (1.8-2.4) mg/dL Total Bilirubin (0.2-1.0) mg/dL Direct Bilirubin 0.1 (0.0-0.2) mg/dL AST (15-37) U/L ALT (16-63) U/L Alkaline Phosphatase (46-116) U/L C-Reactive Protein (0.0-0.9) mg/dL Total Protein (6.4-8.2) g/dL Albumin (3.4-5.0) g/dL Globulin Albumin/Globulin Ratio TSH, Ultra Sensitive (0.36-3.74) uIU/mL Ethyl Alcohol (0) mg/dL SARS CoV-2 RNA Rapid ROM (NEGATIVE) Mj Results Last 24 Hours: Microbiology 10/29/21 17:22 Anaerobic Blood Culture - Final Blood - Arm, Right Med Orders - Current: Current Medications Acetaminophen (Acetaminophen 325 Mg Tab) 650 mg PO Q4H PRN PRN Reason: Pain (Mild 1-3)/fever Apixaban (Apixaban 5 Mg Tab) 5 mg PO BID [facility] Last Admin: 10/30/21 08:16 Dose: 5 mg Documented by: Aspirin (Aspirin 81 Mg Tab.Ec) 81 mg PO DAILY [facility] Last Admin: 10/30/21 08:16 Dose: 81 mg Documented by: Dexamethasone (Dexamethasone 6 Mg Tablet) 6 mg PO DAILY [facility] Stop: 11/08/21 09:01 Diltiazem HCl 125 mg/ Sodium (Chloride) 125 mls @ 5 mls/hr IV TITRATE CHRISSY; Protocol Last Admin: 10/30/21 06:06 Dose: 5 mg/hr, 5 mls/hr Documented by: Remdesivir 100 mg/ Sodium (Chloride) 100 mls @ 100 mls/hr IV Q24H [facility] Stop: 11/03/21 12:59 Levothyroxine Sodium (Levothyroxine 50 Mcg Tab) 50 mcg PO ACBREAKFAST [facility] Last Admin: 10/30/21 06:07 Dose: 50 mcg Documented by: Metoprolol Succinate (Metoprolol Succinate 50 Mg Tab.Er) 150 mg PO DAILY [facility] Ondansetron HCl (Ondansetron 4 Mg/2 Ml Sdv) 4 mg IVPUSH Q4H PRN PRN Reason: Nausea/Vomiting Polyethylene Glycol (Polyethylene Glycol 3350 Powder 17 Gm Packet) 17 gm PO DAILY PRN PRN Reason: Constipation Sodium Chloride (Sodium Chloride 0.9% 10 Ml Syringe) 10 ml FLUSH ASDIRECTED PRN PRN Reason: Keep Vein Open Last Admin: 10/29/21 18:50 Dose: 10 ml Documented by: Sodium Chloride (Sodium Chloride 0.9% 10 Ml Syringe) 10 ml FLUSH ASDIRECTED PRN PRN Reason: Keep Vein Open Discontinued Medications Aspirin (Aspirin 81 Mg Tab.Chew) 324 mg PO ONETIME ONE Stop: 10/29/21 16:54 Last Admin: 10/29/21 20:35 Dose: Not Given Documented by: Diltiazem HCl (Diltiazem 25 Mg/5 Ml Sdv) 20 mg IVPUSH ONETIME ONE Stop: 10/29/21 17:07 Last Admin: 10/29/21 17:14 Dose: 20 mg Documented by: Diltiazem HCl (Diltiazem 25 Mg/5 Ml Sdv) 5 mg IVPUSH ONETIME ONE Stop: 10/29/21 19:11 Last Admin: 10/29/21 19:22 Dose: 5 mg Documented by: Diltiazem HCl (Diltiazem 25 Mg/5 Ml Sdv) 5 mg IVPUSH ONETIME ONE Stop: 10/29/21 20:49 Last Admin: 10/29/21 21:14 Dose: 5 mg Documented by: Remdesivir 200 mg/ Sodium (Chloride) 250 mls @ 250 mls/hr IV ONETIME ONE Stop: 10/30/21 13:13 Methylprednisolone Sodium Succinate (Methylprednisolone Sodium Succinate 125 Mg/2 Ml Sdv) 125 mg IVPUSH ONETIME ONE Stop: 10/29/21 17:33 Last Admin: 10/29/21 17:47 Dose: 125 mg Documented by: Metoprolol Succinate (Metoprolol Succinate 50 Mg Tab.Er) 100 mg PO DAILY CHRISSY Last Admin: 10/30/21 08:16 Dose: 100 mg Documented by: Ondansetron HCl (Ondansetron 4 Mg/2 Ml Sdv) 4 mg IVPUSH ONETIME ONE Stop: 10/29/21 17:07 Last Admin: 10/29/21 17:18 Dose: 4 mg Documented by: Comments:: feels weak still today. increased shortness of breath overnight has continued today. - Exam Quality Assessment: Supplemental Oxygen, DVT Prophylaxis. No: Urine Catheter, Skin Breakdown General: Alert, Oriented, Mild Distress. No: Lethargic HEENT: EOMI, Mucous Membr. Moist/[place] Neck: Supple, No JVD Lungs: Decreased Breath Sounds (in bilateral mid to lower lung [place]), Rales (scattered throughout mid lung [place] bilaterally), Other (increased work of breathing). No: Rhonchi, Rub, Stridor, Wheezing Cardiovascular: No Murmurs, Irregular Rhythm. No: Bradycardia, Gallops, Rubs GI/Abdominal Exam: Soft, Non-Tender (Male) Exam: Deferred Back Exam: Full Range of Motion Extremities: Normal Range of Motion, Non-Tender, No Pedal Edema Skin: Warm, Dry Neurological: No New Focal Deficit Psy/Mental Status: Normal Affect, Normal Mood - Patient Data Lab Results Last 24 hrs: Laboratory Results - last 24 hr 10/29/21 10/29/21 10/29/21 Range/Units 17:22 17:22 17:22 WBC 5.1 (5.0-10.0) 10^3/uL RBC 4.50 L (4.6-6.2) 10^6/uL Hgb 14.0 (14.0-18.0) g/dL Hct 42.1 (40.0-54.0) % MCV 93.6 (80-100) fL MCH 31.1 (27.0-34.0) pg MCHC 33.3 (33.0-35.0) g/dL Plt Count 128 L (150-450) 10^3/uL Neut % (Auto) 79.9 H (42.2-75.2) % Lymph % (Auto) 11.9 L (20.5-50.1) % [place] % (Auto) 8.0 (2-8) % Eos % (Auto) 0.0 L (1.0-3.0) % Baso % (Auto) 0.2 (0.0-1.0) % Sodium 136 (136-145) mmol/L Potassium 3.7 (3.5-5.1) mmol/L Chloride 100 (98-107) mmol/L Carbon Dioxide 26 (21-32) mmol/L Anion Gap 13.7 H (7-13) mEq/L BUN 25 H (7-18) mg/dL Creatinine 0.85 (0.70-1.30) mg/dL Est Cr Clr Drug Dosing TNP Estimated GFR (MDRD) > 60 BUN/Creatinine Ratio 29.4 (No establ ref range) Glucose 150 H (70-99) mg/dL Hemoglobin A1c (<5.7) % Lactic Acid 1.1 (0.4-2.0) mmol/L Calcium 8.3 L (8.5-10.1) mg/dL Magnesium 2.0 (1.8-2.4) mg/dL Total Bilirubin 0.5 (0.2-1.0) mg/dL Direct Bilirubin (0.0-0.2) mg/dL AST 36 (15-37) U/L ALT 41 (16-63) U/L Alkaline Phosphatase 54 (46-116) U/L C-Reactive Protein 3.5 H (0.0-0.9) mg/dL Total Protein 6.3 L (6.4-8.2) g/dL Albumin 2.9 L (3.4-5.0) g/dL Globulin 3.4 Albumin/Globulin Ratio 0.85 TSH, Ultra Sensitive (0.36-3.74) uIU/mL Ethyl Alcohol < 3 (0) mg/dL SARS CoV-2 RNA Rapid ROM (NEGATIVE) 10/29/21 10/29/21 10/30/21 Range/Units 17:22 18:40 05:45 WBC 3.5 L (5.0-10.0) 10^3/uL RBC 4.53 L (4.6-6.2) 10^6/uL Hgb 14.3 (14.0-18.0) g/dL Hct 42.5 (40.0-54.0) % MCV 93.8 (80-100) fL MCH 31.6 (27.0-34.0) pg MCHC 33.6 (33.0-35.0) g/dL Plt Count 120 L (150-450) 10^3/uL Neut % (Auto) (42.2-75.2) % Lymph % (Auto) (20.5-50.1) % [place] % (Auto) (2-8) % Eos % (Auto) (1.0-3.0) % Baso % (Auto) (0.0-1.0) % Sodium (136-145) mmol/L Potassium (3.5-5.1) mmol/L Chloride (98-107) mmol/L Carbon Dioxide (21-32) mmol/L Anion Gap (7-13) mEq/L BUN (7-18) mg/dL Creatinine (0.70-1.30) mg/dL Est Cr Clr Drug Dosing Estimated GFR (MDRD) BUN/Creatinine Ratio (No establ ref range) Glucose (70-99) mg/dL Hemoglobin A1c (<5.7) % Lactic Acid (0.4-2.0) mmol/L Calcium (8.5-10.1) mg/dL Magnesium (1.8-2.4) mg/dL Total Bilirubin (0.2-1.0) mg/dL Direct Bilirubin (0.0-0.2) mg/dL AST (15-37) U/L ALT (16-63) U/L Alkaline Phosphatase (46-116) U/L C-Reactive Protein (0.0-0.9) mg/dL Total Protein (6.4-8.2) g/dL Albumin (3.4-5.0) g/dL Globulin Albumin/Globulin Ratio TSH, Ultra Sensitive 1.02 (0.36-3.74) uIU/mL Ethyl Alcohol (0) mg/dL SARS CoV-2 RNA Rapid ROM Positive H (NEGATIVE) 10/30/21 10/30/21 10/30/21 Range/Units 05:45 05:45 05:45 WBC (5.0-10.0) 10^3/uL RBC (4.6-6.2) 10^6/uL Hgb (14.0-18.0) g/dL Hct (40.0-54.0) % MCV (80-100) fL MCH (27.0-34.0) pg MCHC (33.0-35.0) g/dL Plt Count (150-450) 10^3/uL Neut % (Auto) (42.2-75.2) % Lymph % (Auto) (20.5-50.1) % [place] % (Auto) (2-8) % Eos % (Auto) (1.0-3.0) % Baso % (Auto) (0.0-1.0) % Sodium 138 (136-145) mmol/L Potassium 3.9 (3.5-5.1) mmol/L Chloride 101 (98-107) mmol/L Carbon Dioxide 24 (21-32) mmol/L Anion Gap 16.9 H (7-13) mEq/L BUN 25 H (7-18) mg/dL Creatinine 0.85 (0.70-1.30) mg/dL Est Cr Clr Drug Dosing 83.67 Estimated GFR (MDRD) > 60 BUN/Creatinine Ratio (No establ ref range) Glucose 257 H (70-99) mg/dL Hemoglobin A1c 6.3 H (<5.7) % Lactic Acid (0.4-2.0) mmol/L Calcium 8.5 (8.5-10.1) mg/dL Magnesium 2.3 (1.8-2.4) mg/dL Total Bilirubin (0.2-1.0) mg/dL Direct Bilirubin 0.1 (0.0-0.2) mg/dL AST (15-37) U/L ALT (16-63) U/L Alkaline Phosphatase (46-116) U/L C-Reactive Protein (0.0-0.9) mg/dL Total Protein (6.4-8.2) g/dL Albumin (3.4-5.0) g/dL Globulin Albumin/Globulin Ratio TSH, Ultra Sensitive (0.36-3.74) uIU/mL Ethyl Alcohol (0) mg/dL SARS CoV-2 RNA Rapid ROM (NEGATIVE) Result Diagrams: 10/30/21 05:45 10/30/21 05:45 Mj Results Last 24 hrs: Microbiology 10/29/21 17:22 Anaerobic Blood Culture - Final Blood - Arm, Right Sepsis Event Note - Evaluation Sepsis Screening Result: Possible Sepsis Risk - Focused Exam Vital Signs: Vital Signs Temp Pulse Pulse Resp BP BP Pulse Ox 10/30/21 08:16 91 121/95 H 10/30/21 08:15 96.2 F L 94 17 121/95 H 95 10/30/21 04:00 97.6 F 92 16 126/87 94 L - Problem List Review Problem List Initiated/Reviewed/Updated: Yes - My Orders Last 24 Hours: My Active Orders 10/29/21 20:03 Patient Status [ADT] Routine Height and Weight [RC] .PRN Oxygen Therapy [RC] PRN Up With Assistance [RC] ASDIRECTED VTE/DVT Education [RC] 08,20 Vital Signs [RC] 20,00,04,08,12,16 Acetaminophen [TylenoL] 650 mg PO Q4H PRN Ondansetron [Zofran] 4 mg IVPUSH Q4H PRN Sodium Chloride 0.9% [Saline Flush] 10 ml FLUSH ASDIRECTED PRN polyethylene glycoL 3350 [MiraLAX] 17 gm PO DAILY PRN Saline Lock Insert [OM.PC] Routine Resuscitation Status Routine 10/29/21 20:05 Cardiac Monitoring [RC] 08,20 Pulse Oximetry [RC] CONTINUOUS 10/29/21 20:07 Incentive Spirometry [RT Incentive Spirometry] [RC] Q2HWA 10/29/21 20:35 Isolation [COMM] Routine 10/29/21 20:36 Activity as Tolerated [RC] .Routine 10/29/21 21:00 Apixaban [Eliquis] 5 mg PO BID 10/30/21 06:00 Levothyroxine [Synthroid] 50 mcg PO ACBREAKFAST 10/30/21 09:00 Aspirin [Halfprin] 81 mg PO DAILY 10/30/21 12:16 Isolation [COMM] Stat 10/30/21 12:30 dexAMETHasone 6 mg PO DAILY 10/31/21 09:00 Metoprolol Succinate [Toprol XL] 150 mg PO DAILY 10/31/21 10:38 BASIC METABOLIC PANEL,BMP [CHEM] Routine 10/31/21 10:39 CBC W/O DIFF,HEMOGRAM [HEME] Routine 10/31/21 12:00 Remdesivir 100 mg Sodium Chloride 0.9% [Normal Saline AdvBag] 100 ml IV Q24H 10/31/21 12:30 BILIRUBIN DIRECT [CHEM] DAILY 11/01/21 12:30 BILIRUBIN DIRECT [CHEM] DAILY 11/02/21 12:30 BILIRUBIN DIRECT [CHEM] DAILY 11/03/21 12:30 BILIRUBIN DIRECT [CHEM] DAILY - Plan Plan:: ACTIVE PROBLEMS: Atrial fibrillation with RVR Hx of paroxysmal atrial fibrillation. - While in ED rate was in the 150-160 range. cardizem push 20mg given once with minimal improvement after which cardizem gtt was started. - TSH WNL Plan: - continue cardizem gtt titration with parameters in order - increase toprol XL 100mg once daily to 150mg once daily for rate control - eliquis 5mg bid for anticoagulation - telemetry COVID 19 viral infection - received solumedrol 125mg IV in the ED. - currently requiring 2L supplemental oxygen to maintain saturations >90%. Plan: - start dexamethasone 6mg daily for 10 days and remdesivir daily for 5 days with load dose today - IS every 2 hours while awake - isolation - wean oxygen as tolerated CHRONIC CONDITIONS: - acquired hypothyroidism: continue levothyroxine 50mg every morning - Obesity: BMI 34 on admit MDM/Interval Hx: increased oxygen requirements to 2L overnight continues today during the day. pt now qualifies for remdesivir and dexamethasone. HR well controlled on cardizem gtt. increase toprol XL to 150mg once daily and wean ox ygen as tolerated. stressed importance of IS and being up to chair as much as possible.
[2021-10-30] MEDS: Dexamethasone 6 MG TABLET PO SCH (14:30)
[2021-10-30] MEDS: Sodium Chloride 0.9% 10 ML Syringe FLUSH PRN ×2 (15:53→20:52)
[2021-10-31] MEDS: Levothyroxine 50 MCG Tab PO SCH (05:59)
[2021-10-31 07:15] LABS: ANION GAP 15.7 mEq/L (7-13); CHLORIDE,CL 101 mmol/L (98-107); SODIUM,NA 136 mmol/L (136-145)
[2021-10-31] MEDS: Aspirin 81 MG Tab.EC PO SCH (08:50)
[2021-10-31] MEDS: Dexamethasone 6 MG TABLET PO SCH (08:50)
[2021-10-31] MEDS: Apixaban 5 MG Tab PO SCH (08:51)
[2021-10-31 08:52] VITALS: PULSE 66
[2021-10-31] MEDS ORDERED: Metoprolol Succinate 50 MG Tab.ER PO SCH ×2 (09:00)
[2021-10-31 11:50] VITALS: BP 121/74
[2021-10-31] MEDS ORDERED: REMDESIVIR 100 MG in Sodium Chloride 0.9% 100 ML IV SCH (12:00)
--- NOTE | 2021-10-31 15:28 | PCM.DCSUM1 ---
Discharge Summary - Hospital Course Brief History: see below Diagnosis: Stroke: Yes Modified [place] Scale: No Signif.Disability Despite Sympt.Able to Carry Out Usual Act./Duties Modified [place] Scale Score: 1 - Discharge Data Discharge Date: 10/31/21 Discharge Disposition: Home, Self-Care 01 Condition: Good - Referral to Home Health Primary Care Physician: PCP None - Patient Summary/Data Hospital Course: Ottoniel is a 71 year old man with PMH significant for obesity, acquired hypothyroidism, paroxysmal atrial fibrillation and recent diagnosis of COVID 19 on 10/20/21 presented to the ED after experiencing a few hours of palpitations. He had associated lightheaded and dizzy feeling. He tried to rest at home but it wasn't effective and he started to feel worse so he came to the ED. He initially associated his palpitations with COVID 19 (for which he has had acid reflux, decreased taste sensation and decreased appetite since onset) but with time realized it was similar to sensation he has had in the past during periods of rapid rate. While in the ED he was found to have afib with RVR and a rate of 160. he was given IV push of cardizem 20mg x1 without resolution so was started on a cardizem gtt, he was also requiring 2L supplemental oxygen to maintain saturati ons greater than 90%. He was admitted to the hospital for further evaluation and treatment. cardizem gtt was titrated to HR 100. pt started on dexamethasone and remdesivir per covid 19 protocol. of note, he was fully vaccinated. oxygen was weaned as tolerated. By the afternoon of 10/30/21 cardizem gtt was able to be turned off. Pt converted to NSR. HR in the 60-80 range. monitored overnight and weaned off of the last 1L of oxygen. thought to be medically stable for discharge from the hospital on the afternoon of 10/31/21. All questions and concerns were addressed at bedside prior to discharge. he will follow with his PCP in 1 week. he will continue on dexamethasone to complete a 10 day course. - Patient Instructions Diet: Usual Diet as Tolerated Driving: May Drive Today Showering/Bathing: May Shower - Discharge Plan *PRESCRIPTION DRUG MONITORING PROGRAM REVIEWED*: Not Applicable *COPY OF PRESCRIPTION DRUG MONITORING REPORT IN PATIENT ERICK: Not Applicable Home Medications: Home Meds Metoprolol Succinate [Toprol XL] 100 mg PO DAILY 03/28/17 [History] Aspirin [Adult Low Dose Aspirin EC] 81 mg PO DAILY 02/19/18 [History] Ibuprofen 200 mg PO ASDIRECTED PRN 02/19/18 [History] Apixaban [Eliquis] 5 mg PO BID 10/29/21 [History] Levothyroxine [Synthroid] 50 mcg PO ACBREAKFAST 10/29/21 [History] Oxygen Therapy Mode: Room Air Forms: ED Department Discharge Referrals: Ulises Thompson MD [Physician] - - Discharge Summary/Plan Comment DC Time >30 min.: Yes Total # of Minutes for Discharge Time: 45 Discharge Summary/Plan Comment: Ottoniel is a 71 year old man with PMH significant for obesity, acquired hypothyroidism, paroxysmal atrial fibrillation and recent diagnosis of COVID 19 on 10/20/21 presented to the ED after experiencing a few hours of palpitations. He had associated lightheaded and dizzy feeling. He tried to rest at home but it wasn't effective and he started to feel worse so he came to the ED. He initially associated his palpitations with COVID 19 (for which he has had acid reflux, decreased taste sensation and decreased appetite since onset) but with time realized it was similar to sensation he has had in the past during periods of rapid rate. While in the ED he was found to have afib with RVR and a rate of 160. he was given IV push of cardizem 20mg x1 without resolution so was started on a cardizem gtt, he was also requiring 2L supplemental oxygen to maintain saturations greater than 90%. He was admitted to the hospital for further evaluation and treatment. cardizem gtt was titrated to HR 100. pt started on dexamethasone and remdesivir per covid 19 protocol. of note, he was fully vaccinated. oxygen was weaned as tolerated. By the afternoon of 10/30/21 cardizem gtt was able to be turned off. Pt converted to NSR. HR in the 60-80 range. monitored overnight and weaned off of the last 1L of oxygen. thought to be medically stable for discharge from the hospital on the afternoon of 10/31/21. All questions and concerns were addressed at bedside prior to discharge. he will follow with his PCP in 1 week. he will continue on dexamethasone to complete a 10 day course. - General Info Date of Service: 10/31/21 Functional Status: Reports: Pain Controlled, Tolerating Diet, Incentive Spirometry. Denies: New Symptoms - Review of Systems General: Reports: No Symptoms. Denies: Fever, Weakness, Chills HEENT: Reports: No Symptoms, Glasses Pulmonary: Reports: Cough, Sputum. Denies: Shortness of Breath, Wheezing Cardiovascular: Reports: Dyspnea on Exertion. Denies: Edema, Lightheadedness Gastrointestinal: Reports: Decreased Appetite. Denies: Abdominal Pain, Diarrhea Genitourinary: Reports: No Symptoms Musculoskeletal: Reports: No Symptoms Skin: Reports: No Symptoms Neurological: Reports: No Symptoms Psychiatric: Reports: No Symptoms - Patient Data Vitals - Most Recent: Last Vital Signs Temp 97.6 F 10/31/21 11:49 Pulse 66 10/31/21 08:50 Resp 18 10/31/21 11:49 BP 121/74 10/31/21 11:49 Pulse Ox 93 L 10/31/21 11:49 Weight - Most Recent: 248 lb 14.4 oz I&O - Last 24 hours: Intake & Output 10/31/21 10/31/21 10/31/21 06:59 14:59 22:59 Intake Total 100 Balance 100 Lab Results - Last 24 hrs: Laboratory Results - last 24 hr 10/31/21 10/31/21 10/31/21 Range/Units 06:00 06:00 06:00 WBC 7.4 (5.0-10.0) 10^3/uL RBC 3.87 L (4.6-6.2) 10^6/uL Hgb 12.2 L D (14.0-18.0) g/dL Hct 36.3 L (40.0-54.0) % MCV 93.8 (80-100) fL MCH 31.5 (27.0-34.0) pg MCHC 33.6 (33.0-35.0) g/dL Plt Count 156 (150-450) 10^3/uL Sodium 136 (136-145) mmol/L Potassium 4.7 (3.5-5.1) mmol/L Chloride 101 (98-107) mmol/L Carbon Dioxide 24 (21-32) mmol/L Anion Gap 15.7 H (7-13) mEq/L BUN 37 H (7-18) mg/dL Creatinine 1.13 (0.70-1.30) mg/dL Est Cr Clr Drug Dosing 62.94 mL/min Estimated GFR (MDRD) > 60 Glucose 267 H (70-99) mg/dL Calcium 8.8 (8.5-10.1) mg/dL Direct Bilirubin 0.1 (0.0-0.2) mg/dL [facility] Results - Last 24 hrs: Microbiology 10/29/21 17:28 Aerobic Blood Culture - Preliminary Blood - Arm, Left NO GROWTH AFTER 1 DAY Anaerobic Blood Culture - Preliminary NO GROWTH AFTER 1 DAY 10/29/21 17:22 Aerobic Blood Culture - Preliminary Blood - Arm, Right NO GROWTH AFTER 1 DAY Anaerobic Blood Culture - Final Med Orders - Current: Current Medications Acetaminophen (Acetaminophen 325 Mg Tab) 650 mg PO Q4H PRN PRN Reason: Pain (Mild 1-3)/fever Apixaban (Apixaban 5 Mg Tab) 5 mg PO BID [facility] Last Admin: 10/31/21 08:51 Dose: 5 mg Documented by: Aspirin (Aspirin 81 Mg Tab.Ec) 81 mg PO DAILY [facility] Last Admin: 10/31/21 08:50 Dose: 81 mg Documented by: Dexamethasone (Dexamethasone 6 Mg Tablet) 6 mg PO DAILY [facility] Stop: 11/08/21 09:01 Last Admin: 10/31/21 08:50 Dose: 6 mg Documented by: Diltiazem HCl 125 mg/ Sodium (Chloride) 125 mls @ 5 mls/hr IV TITRATE [facility]; Protocol Last Titration: 10/30/21 17:30 Dose: 0 mg/hr, 0 mls/hr Documented by: Remdesivir 100 mg/ Sodium (Chloride) 100 mls @ 100 mls/hr IV Q24H [facility] Stop: 11/03/21 12:59 Last Admin: 10/31/21 11:38 Dose: 100 mls/hr Documented by: Levothyroxine Sodium (Levothyroxine 50 Mcg Tab) 50 mcg PO ACBREAKFAST [facility] Last Admin: 10/31/21 05:59 Dose: 50 mcg Documented by: Metoprolol Succinate (Metoprolol Succinate 50 Mg Tab.Er) 100 mg PO DAILY [facility] Last Admin: 10/31/21 08:50 Dose: 100 mg Documented by: Ondansetron HCl (Ondansetron 4 Mg/2 Ml Sdv) 4 mg IVPUSH Q4H PRN PRN Reason: Nausea/Vomiting Polyethylene Glycol (Polyethylene Glycol 3350 Powder 17 Gm Packet) 17 gm PO DAILY PRN PRN Reason: Constipation Last Admin: 10/31/21 13:55 Dose: 17 gm Documented by: Sodium Chloride (Sodium Chloride 0.9% 10 Ml Syringe) 10 ml FLUSH ASDIRECTED PRN PRN Reason: Keep Vein Open Discontinued Medications Aspirin (Aspirin 81 Mg Tab.Chew) 324 mg PO ONETIME ONE Stop: 10/29/21 16:54 Last Admin: 10/29/21 20:35 Dose: Not Given Documented by: Diltiazem HCl (Diltiazem 25 Mg/5 Ml Sdv) 20 mg IVPUSH ONETIME ONE Stop: 10/29/21 17:07 Last Admin: 10/29/21 17:14 Dose: 20 mg Documented by: Diltiazem HCl (Diltiazem 25 Mg/5 Ml Sdv) 5 mg IVPUSH ONETIME ONE Stop: 10/29/21 19:11 Last Admin: 10/29/21 19:22 Dose: 5 mg Documented by: Diltiazem HCl (Diltiazem 25 Mg/5 Ml Sdv) 5 mg IVPUSH ONETIME ONE Stop: 10/29/21 20:49 Last Admin: 10/29/21 21:14 Dose: 5 mg Documented by: Remdesivir 200 mg/ Sodium (Chloride) 250 mls @ 250 mls/hr IV ONETIME ONE Stop: 10/30/21 13:13 Last Infusion: 10/30/21 15:52 Dose: Infused Documented by: Methylprednisolone Sodium Succinate (Methylprednisolone Sodium Succinate 125 Mg/2 Ml Sdv) 125 mg IVPUSH ONETIME ONE Stop: 10/29/21 17:33 Last Admin: 10/29/21 17:47 Dose: 125 mg Documented by: Metoprolol Succinate (Metoprolol Succinate 50 Mg Tab.Er) 100 mg PO DAILY [facility] Last Admin: 10/30/21 08:16 Dose: 100 mg Documented by: Metoprolol Succinate (Metoprolol Succinate 50 Mg Tab.Er) 150 mg PO DAILY [facility] Ondansetron HCl (Ondansetron 4 Mg/2 Ml Sdv) 4 mg IVPUSH ONETIME ONE Stop: 10/29/21 17:07 Last Admin: 10/29/21 17:18 Dose: 4 mg Documented by: Sodium Chloride (Sodium Chloride 0.9% 10 Ml Syringe) 10 ml FLUSH ASDIRECTED PRN PRN Reason: Keep Vein Open Last Admin: 10/30/21 20:52 Dose: 10 ml Documented by: - Exam Quality Assessment: Reports: DVT Prophylaxis (home dose). Denies: Supplemental Oxygen General: Reports: Alert, Oriented, No Acute Distress HEENT: Reports: EOMI, Mucous Membr. Moist/[place] Lungs: Reports: Clear to Auscultation, Decreased Breath Sounds (bilateral bases). Denies: Crackles, Rales, Rhonchi, Rub, Wheezing Cardiovascular: Reports: Regular Rate, Regular Rhythm, No Murmurs GI/Abdominal Exam: Soft, Non-Tender (Male) Exam: Deferred Rectal (Males) Exam: Deferred Back Exam: Reports: Full Range of Motion Extremities: Non-Tender, No Pedal Edema Skin: Reports: Dry, Intact Neurological: Reports: No New Focal Deficit Psy/Mental Status: Reports: Normal Affect, Normal Mood *Q Meaningful Use (DIS) - VTE *Q VTE Mechanical Contraindications *Q: Tx/Proc Refused byPt VTE Pharmacological Contraindications *Q: Tx/Proc Refused by Pt VTE Anticoagulation Contraindications: Tx/proc Refused by PT - Stroke *Q Aspirin Contraindications Stroke *Q: Patient Refusal Anticoagulation Contraindications Stroke *Q: TX/PROC Refused by PT Antithrombotic Contraindications Stroke *Q: TX/PROC Refused by PT Statin Contraindications Stroke *Q: TX/PROC Refused by PT Rehabilitation Assessment Contraindication *Q: Tx/proc refused by pt - AMI *Q Aspirin Contraindications AMI *Q: TX/PROC Refused by PT Statin Contraindications AMI *Q: TX/Proc Refused by PT
== END 2021-10-31 17:15 | disposition home or self-care (01) | DRG 179 ==
LOC: DL.ED 16:11 → DL.MS 18:46
PROVIDERS: ADMIT Hospitalist; ATTEND Hospitalist
PROC: XW033E5 Introduction of Remdesivir Anti-infective into Peripheral Vein, Percutaneous Approach, New Technology Group 5 (ICD-10-PCS; principal; 2021-10-29)
PROC: 3E0DX3Z Introduction of Anti-inflammatory into Mouth and Pharynx, External Approach (ICD-10-PCS; 2021-10-29)
PROC: 8E0ZXY6 Isolation (ICD-10-PCS; 2021-10-29)
DX: U07.1 COVID-19 (principal); E66.9 Obesity, unspecified; E03.9 Hypothyroidism, unspecified; I48.0 Paroxysmal atrial fibrillation; K21.9 Gastro-esophageal reflux disease without esophagitis; Z79.82 Long term (current) use of aspirin; Z79.01 Long term (current) use of anticoagulants; Z79.890 Hormone replacement therapy; Z79.899 Other long term (current) drug therapy; Z68.34 Body mass index [BMI] 34.0-34.9, adult
CPT/HCPCS: 36415; 70450; 71045; 80048; 80053; 80307; 82248; 83036; 83605; 83735; 84443; 85025; 85027; 86140; 87040; 90662; 93005; 96374; 96375; 99285-25; A9270-GY; G0008; J2405; J2930; J3490; J7050; J8540; U0002

== ENCOUNTER 2021-11-02 19:52 | Inpatient (IN) | payer OTHER ==
[2021-11-02] MEDS ORDERED: Diltiazem 25 MG/5 ML SDV IVPUSH ONE (22:26)
[2021-11-02 22:46] LABS: ANION GAP 14.8 mEq/L (7-13); CHLORIDE,CL 98 mmol/L (98-107); SODIUM,NA 136 mmol/L (136-145)
[2021-11-02 23:01] LABS: O2 DELIVERY DEVICE NASAL CANNULA; O2 SATURATION ARTERIAL 94 % (95-100); PCO2 ARTERIAL 34 mmHg (35-45); PO2 ARTERIAL 66 mmHg (70-100)
[2021-11-02 23:02] LABS: ALLEN TEST POSITIVE; BASE EXCESS ARTERIAL 2 mmol/L ((-2)-(+3)); BICARBONATE,ARTERIAL 24.7 mmol/L (22-26)
[2021-11-02] MEDS: Diltiazem 125 MG in Sodium Chloride 0.9% 100 ML IV SCH (23:37)
--- NOTE | 2021-11-02 23:40 | EDM.PDOC ---
ED HPI GENERAL MEDICAL PROBLEM - General Chief Complaint: Gastrointestinal Problem Stated Complaint: LOWER BOWEL OBSTRUCTION, PER PT Time Seen by Provider: 11/02/21 21:30 Source of Information: Reports: Patient, Family (), Old Records, RN, RN Notes Reviewed History Limitations: Reports: Other (Mild confusion) - History of Present Illness INITIAL COMMENTS - FREE TEXT/NARRATIVE: Ottoniel is a 71 y/o male with a history of paroxysmal AFib who presents to the ED via personal vehicle with his for complaints of fatigue, cough, and diarrhea. Additionally, he notes shortness of breath and "burning" to his abdomen and chest with deep inspiration or cough. The patient was discharged from this facility two days ago following a hospitalization for paroxysmal AFib and COVID-19 infection. The patient's memory regarding his hospitalization is poor, but a review of records shows he required a Cardizem gtt as well as 2L of O2 via NC. He received two doses of Remdesivir as well as two doses of Dexamethasone 6mg; he was discharged on his previous beta yamilka and new Eliquis, however Dexamethasone was not continued. He denies recent fever, shaking chills, vision changes, dizziness, nausea, vomiting, or dysuria. He has been taking MiraLAX and Milk of Magnesia as his is concerned he is constipated, despite several loose, watery stools in the past 24 hours. - Related Data Allergies Allergy/AdvReac Type Severity Reaction Status Date / Time No Known Allergies Allergy Verified 10/29/21 17:31 Home Meds: Home Meds Metoprolol Succinate [Toprol XL] 100 mg PO DAILY 03/28/17 [History] Aspirin [Adult Low Dose Aspirin EC] 81 mg PO DAILY 02/19/18 [History] Ibuprofen 200 mg PO ASDIRECTED PRN 02/19/18 [History] Apixaban [Eliquis] 5 mg PO BID 10/29/21 [History] Levothyroxine [Synthroid] 50 mcg PO ACBREAKFAST 10/29/21 [History] Past Medical History Cardiovascular History: Reports: Afib, [place], Stents Endocrine/Metabolic History: Reports: Hypothyroidism - Infectious Disease History Infectious Disease History: Reports: Measles, Mumps - Past Surgical History Cardiovascular Surgical History: Reports: Coronary Artery Stent Social & Family History - Tobacco Use Tobacco Use Status *Q: Never Tobacco User Second Hand Smoke Exposure: No - Caffeine Use Caffeine Use: Reports: Coffee - Living Situation & Occupation Living situation: Reports: , with Spouse Occupation: Retired ED ROS GENERAL - Review of Systems Review Of Systems: Comprehensive ROS is negative, except as noted in HPI. ED EXAM, GENERAL - Physical Exam Exam: See Below Exam Limited By: Other (Mild confusion) General Appearance: Alert, Moderate Distress (Tachypnea), Obese Eye Exam: Bilateral Eye: EOMI, Normal Inspection, PERRL (3mm) Ears: Normal External Exam, Hearing Grossly Normal Nose: Normal Inspection Throat/Mouth: Normal Inspection, Normal Oropharynx, Normal Voice, No Airway Compromise Head: Atraumatic, Normocephalic Neck: Normal Inspection, Full Range of Motion. No: Lymphadenopathy (L), Lymphadenopathy (R) Respiratory/Chest: Respiratory Distress, Decreased Breath Sounds, Accessory Muscle Use. No: Chest Non-Tender, Crackles, Rales, Rhonchi, Wheezing Cardiovascular: No Edema, No Gallop, No JVD, No Murmur, No Rub, Tachycardia, Irregularly Irregular Peripheral Pulses: 2+: Radial (L), Radial (R) GI/Abdominal: Normal Bowel Sounds, No Abnormal Bruit, No Mass, Pelvis Stable, Distended, Tender (Diffuse, not increased with palpation) (Male) Exam: Deferred Rectal (Males) Exam: Deferred Back Exam: Normal Inspection, Full Range of Motion Extremities: Normal Inspection, Normal Range of Motion, Non-Tender, No Pedal Edema, Normal Capillary Refill Neurological: Alert, Oriented, CN II-XII Intact, Normal Gait, Normal Reflexes, No Motor/Sensory Deficits, Slow to Respond. No: Normal Cognition (Transient confusion and inappropriate words), Memory Loss Remote Events, Memory Loss Recent Events Psychiatric: Normal Affect, Normal Mood Skin Exam: Warm, Dry, Intact, Normal Color, No Rash. No: Cyanosis, Jaundice, Mottled, Pallor #1 Interpretation EKG Date: 11/03/21 Time: 22:10 Rhythm: A-Fib (w/ RVR) Rate (Beats/Min): 162 [place]: RAD-Right [place] Deviation P-Wave: Absent QRS: Other (Late transition R wave progression) ST-T: Normal QT: Normal Comparison: Change From Previous EKG (10/29/21) EKG Interpretation Comments: AFib with RVR; RAD; No evidence of acute myocardial ischemia Course - Vital Signs Last Recorded V/S: Last Vital Signs Temp 98.6 F 11/02/21 21:10 Pulse 131 H 11/02/21 21:10 Resp 24 H 11/02/21 21:10 BP 174/113 H 11/02/21 21:10 Pulse Ox 85 L 11/02/21 21:10 - Orders/Labs/Meds Orders: Active Orders 24 hr Category Date Time Status Diltiazem 125 mg Med 11/02/21 23:15 Active Sodium Chloride 0.9% [Normal Saline] 100 ml IV TITRATE Medication Orders Acetaminophen (Acetaminophen 325 Mg Tab) 650 mg PO Q4H PRN PRN Reason: Pain (Mild 1-3)/fever Diltiazem HCl 125 mg/ Sodium (Chloride) 125 mls @ 5 mls/hr IV TITRATE [facility]; Protocol Last Titration: 11/02/21 23:51 Dose: 10 mg/hr, 10 mls/hr Documented by: Admin: 11/02/21 23:37 Dose: 5 mg/hr, 5 mls/hr Documented by: EUGENIA Piperacillin Sod/Tazobactam (Sod 4.5 gm/ Sodium Chloride) 100 mls @ 200 mls/hr IV Q6HR [facility] Labs: Laboratory Tests 11/02/21 11/02/21 11/02/21 Range/Units 21:55 22:15 22:15 WBC 9.7 (5.0-10.0) 10^3/uL RBC 4.43 L (4.6-6.2) 10^6/uL Hgb 13.9 L D (14.0-18.0) g/dL Hct 41.3 (40.0-54.0) % MCV 93.2 (80-100) fL MCH 31.4 (27.0-34.0) pg MCHC 33.7 (33.0-35.0) g/dL Plt Count 188 (150-450) 10^3/uL Neut % (Auto) 89.8 H (42.2-75.2) % Lymph % (Auto) 5.4 L (20.5-50.1) % [place] % (Auto) 4.7 (2-8) % Eos % (Auto) 0.0 L (1.0-3.0) % Baso % (Auto) 0.1 (0.0-1.0) % Add Manual Diff Yes Neutrophils % (Manual) 92 H (42-75) % Lymphocytes % (Manual) 4 L (20-50) % Monocytes % (Manual) 4 (2-8) % PT (9.0-12.0) SEC INR (0.9-1.2) APTT (22.0-34.0) SEC D-Dimer, Quantitative (0-400) ng/mL ABG pH 7.48 H (7.35-7.45) ABG pCO2 34 L (35-45) mmHg ABG pO2 66 L (70-100) mmHg ABG HCO3 24.7 (22-26) mmol/L ABG O2 Saturation 94 L (95-100) % ABG Base Excess 2 ((-2)-(+3)) mmol/L Stephen Test Positive O2 Delivery Device Nasal cannula Sodium 136 (136-145) mmol/L Potassium 3.8 (3.5-5.1) mmol/L Chloride 98 (98-107) mmol/L Carbon Dioxide 27 (21-32) mmol/L Anion Gap 14.8 H (7-13) mEq/L BUN 15 (7-18) mg/dL Creatinine 0.73 (0.70-1.30) mg/dL Est Cr Clr Drug Dosing 97.42 mL/min Estimated GFR (MDRD) > 60 BUN/Creatinine Ratio 20.5 (No establ ref range) Glucose 194 H (70-99) mg/dL Lactic Acid (0.4-2.0) mmol/L Calcium 8.8 (8.5-10.1) mg/dL Magnesium 2.5 H (1.8-2.4) mg/dL Total Bilirubin 0.9 (0.2-1.0) mg/dL AST 32 (15-37) U/L ALT 44 (16-63) U/L Alkaline Phosphatase 51 (46-116) U/L Troponin I High Sens 6 (<=76) pg/mL C-Reactive Protein 9.7 H (0.0-0.9) mg/dL Total Protein 6.8 (6.4-8.2) g/dL Albumin 3.0 L (3.4-5.0) g/dL Globulin 3.8 Albumin/Globulin Ratio 0.79 Amylase 58 (25-115) U/L Lipase 199 (73-393) U/L 11/02/21 11/02/21 Range/Units 22:15 22:15 WBC (5.0-10.0) 10^3/uL RBC (4.6-6.2) 10^6/uL Hgb (14.0-18.0) g/dL Hct (40.0-54.0) % MCV (80-100) fL MCH (27.0-34.0) pg MCHC (33.0-35.0) g/dL Plt Count (150-450) 10^3/uL Neut % (Auto) (42.2-75.2) % Lymph % (Auto) (20.5-50.1) % [place] % (Auto) (2-8) % Eos % (Auto) (1.0-3.0) % Baso % (Auto) (0.0-1.0) % Add Manual Diff Neutrophils % (Manual) (42-75) % Lymphocytes % (Manual) (20-50) % Monocytes % (Manual) (2-8) % PT 11.3 (9.0-12.0) SEC INR 1.1 (0.9-1.2) APTT 29.0 (22.0-34.0) SEC D-Dimer, Quantitative 211 (0-400) ng/mL ABG pH (7.35-7.45) ABG pCO2 (35-45) mmHg ABG pO2 (70-100) mmHg ABG HCO3 (22-26) mmol/L ABG O2 Saturation (95-100) % ABG Base Excess ((-2)-(+3)) mmol/L Stephen Test O2 Delivery Device Sodium (136-145) mmol/L Potassium (3.5-5.1) mmol/L Chloride (98-107) mmol/L Carbon Dioxide (21-32) mmol/L Anion Gap (7-13) mEq/L BUN (7-18) mg/dL Creatinine (0.70-1.30) mg/dL Est Cr Clr Drug Dosing mL/min Estimated GFR (MDRD) BUN/Creatinine Ratio (No establ ref range) Glucose (70-99) mg/dL Lactic Acid 1.6 (0.4-2.0) mmol/L Calcium (8.5-10.1) mg/dL Magnesium (1.8-2.4) mg/dL Total Bilirubin (0.2-1.0) mg/dL AST (15-37) U/L ALT (16-63) U/L Alkaline Phosphatase (46-116) U/L Troponin I High Sens (<=76) pg/mL C-Reactive Protein (0.0-0.9) mg/dL Total Protein (6.4-8.2) g/dL Albumin (3.4-5.0) g/dL Globulin Albumin/Globulin Ratio Amylase (25-115) U/L Lipase (73-393) U/L Meds: Medications Generic Name Dose Route Start Last Admin Trade Name Freq PRN Reason Stop Dose Admin Acetaminophen 650 mg 11/03/21 00:12 Acetaminophen 325 Mg Tab PO Q4H PRN Pain (Mild 1-3)/fever Diltiazem HCl 125 mg/ Sodium 125 mls @ 5 mls/hr 11/02/21 23:15 11/02/21 23:51 Chloride IV 10 mg/hr TITRATE [facility] 10 mls/hr Titration Protocol 5 MG/HR Piperacillin Sod/Tazobactam 100 mls @ 200 mls/hr 11/03/21 00:30 Sod 4.5 gm/ Sodium Chloride IV Q6HR [facility] Discontinued Medications Generic Name Dose Route Start Last Admin Trade Name Freq PRN Reason Stop Dose Admin Diltiazem HCl 10 mg 11/02/21 22:26 11/02/21 22:46 Diltiazem 25 Mg/5 Ml Sdv IVPUSH 11/02/21 22:27 10 mg ONETIME ONE Administration Metoprolol Tartrate 25 mg 11/03/21 00:16 Metoprolol Tartrate 25 Mg Tab PO 11/03/21 00:17 ONETIME ONE - Radiology Interpretation Free Text/Narrative:: [facility] Final Radiology Report Call: [phone] assistance Online chat: [email or web address] Name: OTTONIEL ESCOTO Age: 71Years M Date: 11/02/2021 SSN: -- : [id number] Study: CR CHEST 1V FRONTAL Requesting Physician: Bonny Mars Images: 1 Addl Studies: Provided Clinical History: Hypoxia; Shortness of breath Contrast: Contrast Medium: Contrast Amount: Contrast Method: CONFIDENTIALITY STATEMENT This report is intended only for use by the referring physician, and only in accordance with law. If you received this in error, call [phone]. Page 1 of 1 PROCEDURE INFORMATION: Exam: XR Chest Exam date and time: 11/02/2021 11:28 PM Age: 71 years old Clinical indication: Other: Hypoxia; Shortness of breath TECHNIQUE: Imaging protocol: XR of the chest. Views: 1 view. COMPARISON: CR Chest 1V Frontal 10/29/2021 4:42 PM FINDINGS: Lungs: Multifocal airspace opacities located peripherally new/increased compared to 10/29/2021. Findings are worrisome for multifocal pneumonia. Pleural spaces: Unremarkable. No pleural effusion. No pneumothorax. Heart/Mediastinum: Unremarkable. No cardiomegaly. Bones/joints: Mild-moderate multilevel degenerative spondylosis involving the partially included thoracic spine. Degenerative change at the right shoulder. Intraperitoneal space: No acute upper abdominal findings. IMPRESSION: Multifocal pneumonia. Thank you for allowing us to participate in the care of your patient. Dictated and Authenticated by: Angeli Olivo MD 11/03/2021 12:04 AM Central Time ([place] & [place]) - Re-Assessments/Exams Free Text/Narrative Re-Assessment/Exam: 11/02/21 Patient placed on 2L of O2 via NC during examination for oxygen saturations in the mid 80s, titrated up to 4L. Diltiazem 10mg IVP administered for Afib with RVR. Rate reduced from 160s to 130s-140s, will initiated Diltiazem gtt at 5mg/hr. Case discussed with Dr. Ramos who accepted patient for inpatient admission. Findings of examination, lab work, imaging, and discussion with Dr. Ramos reviewed with patient and girlfriend who verbalized understanding and agreement. Departure - Departure Time of Disposition: 00:35 Disposition: Admitted As Inpatient 65 Condition: Fair Clinical Impression: Paroxysmal atrial fibrillation with rapid ventricular response, Hypoxia, Multifocal pneumonia, Pneumonia due to COVID-19 virus - Discharge Information Sepsis Event Note (ED) - Evaluation Sepsis Screening Result: No Definite Risk - Focused Exam Vital Signs: Vital Signs Temp Pulse Resp BP Pulse Ox 11/02/21 21:10 98.6 F 131 H 24 H 174/113 H 85 L - My Orders Last 24 Hours: My Active Orders 11/02/21 23:15 Diltiazem 125 mg Sodium Chloride 0.9% [Normal Saline] 100 ml IV TITRATE - Assessment/Plan Last 24 Hours: My Active Orders 11/02/21 23:15 Diltiazem 125 mg Sodium Chloride 0.9% [Normal Saline] 100 ml IV TITRATE
--- NOTE | 2021-11-03 00:04 | CR ---
PROCEDURE INFORMATION: Exam: XR Chest Exam date and time: 11/02/2021 11:28 PM Age: 71 years old Clinical indication: Other: Hypoxia; Shortness of breath TECHNIQUE: Imaging protocol: XR of the chest. Views: 1 view. COMPARISON: CR Chest 1V Frontal 10/29/2021 4:42 PM FINDINGS: Lungs: Multifocal airspace opacities located peripherally new/increased compared to 10/29/2021. Findings are worrisome for multifocal pneumonia. Pleural spaces: Unremarkable. No pleural effusion. No pneumothorax. Heart/Mediastinum: Unremarkable. No cardiomegaly. Bones/joints: Mild-moderate multilevel degenerative spondylosis involving the partially included thoracic spine. Degenerative change at the right shoulder. Intraperitoneal space: No acute upper abdominal findings. IMPRESSION: Multifocal pneumonia.
[2021-11-03] MEDS ORDERED: Metoprolol Tartrate 25 MG Tab PO ONE (00:16)
--- NOTE | 2021-11-03 00:22 | PCM.HP ---
H&P History of Present Illness - General Date of Service: 11/03/21 Admit Problem/Dx: Admission Diagnosis/Problem Admission Diagnosis/Problem Paroxysmal atrial fibrillation with rapid ventricular response Source of Information: Patient, EMS History Limitations: Reports: No Limitations - History of Present Illness Initial Comments - Free Text/Narative: Patient is a 71-year-old male with a history of atrial fibrillation on chronic anticoagulation with Eliquis, recent COVID-19 diagnosis, recent hospitalization from 10 29 through 10 31 for Covid pneumonia, A. fib with RVR who presents with initial complaints of gastrointestinal symptoms and was found to have hypoxia and A. fib with rapid ventricular response. According to notes patient recently admitted from 124 through 126 with Covid pneumonia, atrial fibrillation. Ventricular spots. It appears patient tested positive for COVID-19 on 10-20-21. When he presented initially to the emergency department for the 124 admission was hypoxic requiring 2 L O2 and had atrial fibrillation ventricular response with ventricular rates into the 160s. Patient was given bolus of Cardizem and started on a Cardizem drip and admitted for further evaluation. Patient was also given remdesivir, started on p.o. dexamethasone. Blood cultures were -[id number]. Patient converted to sinus rhythm, had improvement in his oxygen saturations and was discharged to home to complete his p.o. dexamethasone. Patient was discharged on metoprolol succinate 100 milligrams p.o. Patient states that on the evening when he was discharged she started to have worsening shortness of breath, fatigue. He states that this continued until his shortness but became significantly worse today he had palpitations, fatigue and general malaise. States he may have had some fevers at home but denies physically checking his temperature. States he was taking his medications including the dexamethasone, metoprolol. Denies significant shortness of breath, fatigue general malaise. Denies any abdominal pain. Patient was worried about a bowel obstruction but has had several bowel movements over the last couple of days loose and not well formed but no increased amount. No melena or hematochezia. He presented the emergency department is found to be in atrial fibrillation with rapid ventricular response with ventricular rates in the 160s. Again hypoxic to 2 L. Repeat labs show WBC count is 9.7, hemoglobin 13.9, platelet count 188. Sodium 136, potassium 3.8, BUN 15, creatinine 0.73, magnesium 2.5, troponin , AST and ALT within normal range for lactate 1.6. Chest x-ray per official read showed worsening bilateral infiltrates concerning for multifocal pneumonia. Patient was given a bolus of 10 mg of diltiazem and started on a diltiazem drip with up titration. - Related Data Allergies/Adverse Reactions: Allergies Allergy/AdvReac Type Severity Reaction Status Date / Time No Known Allergies Allergy Verified 10/29/21 17:31 Home Medications: Home Meds Metoprolol Succinate [Toprol XL] 100 mg PO DAILY 03/28/17 [History] Aspirin [Adult Low Dose Aspirin EC] 81 mg PO DAILY 02/19/18 [History] Ibuprofen 200 mg PO ASDIRECTED PRN 02/19/18 [History] Apixaban [Eliquis] 5 mg PO BID 10/29/21 [History] Levothyroxine [Synthroid] 50 mcg PO ACBREAKFAST 10/29/21 [History] Past Medical History Cardiovascular History: Reports: Afib, [place], Stents Endocrine/Metabolic History: Reports: Hypothyroidism - Infectious Disease History Infectious Disease History: Reports: Measles, Mumps - Past Surgical History Cardiovascular Surgical History: Reports: Coronary Artery Stent Social & Family History - Tobacco Use Tobacco Use Status *Q: Never Tobacco User Second Hand Smoke Exposure: No - Caffeine Use Caffeine Use: Reports: Coffee - Living Situation & Occupation Living situation: Reports: , with Spouse Occupation: Retired H&P Review of Systems - Review of Systems: Review Of Systems: Comprehensive ROS is negative, except as noted in HPI. Exam - Exam Exam: See Below - Vital Signs Vital Signs: Last Vital Signs Temp 98.6 F 11/02/21 21:10 Pulse 131 H 11/02/21 21:10 Resp 24 H 11/02/21 21:10 BP 174/113 H 11/02/21 21:10 Pulse Ox 85 L 11/02/21 21:10 Weight: 239 lb - Exam General: Alert, Oriented, Cooperative Lungs: Crackles, Wheezing (diffuse) Cardiovascular: Irregular Rhythm, Tachycardia GI/Abdominal Exam: Normal Bowel Sounds, Soft Back Exam: Normal Inspection Extremities: Normal Inspection Peripheral Pulses: 2+: Radial (L), Radial (R) Skin: Warm, Dry Neurological: Cranial Nerves Intact - Patient Data Lab Results Last 24 hrs: Laboratory Results - last 24 hr 11/02/21 11/02/21 11/02/21 Range/Units 21:55 22:15 22:15 WBC 9.7 (5.0-10.0) 10^3/uL RBC 4.43 L (4.6-6.2) 10^6/uL Hgb 13.9 L D (14.0-18.0) g/dL Hct 41.3 (40.0-54.0) % MCV 93.2 (80-100) fL MCH 31.4 (27.0-34.0) pg MCHC 33.7 (33.0-35.0) g/dL Plt Count 188 (150-450) 10^3/uL Neut % (Auto) 89.8 H (42.2-75.2) % Lymph % (Auto) 5.4 L (20.5-50.1) % [place] % (Auto) 4.7 (2-8) % Eos % (Auto) 0.0 L (1.0-3.0) % Baso % (Auto) 0.1 (0.0-1.0) % Add Manual Diff Yes Neutrophils % (Manual) 92 H (42-75) % Lymphocytes % (Manual) 4 L (20-50) % Monocytes % (Manual) 4 (2-8) % PT (9.0-12.0) SEC INR (0.9-1.2) APTT (22.0-34.0) SEC D-Dimer, Quantitative (0-400) ng/mL ABG pH 7.48 H (7.35-7.45) ABG pCO2 34 L (35-45) mmHg ABG pO2 66 L (70-100) mmHg ABG HCO3 24.7 (22-26) mmol/L ABG O2 Saturation 94 L (95-100) % ABG Base Excess 2 ((-2)-(+3)) mmol/L Stephen Test Positive O2 Delivery Device Nasal cannula Sodium 136 (136-145) mmol/L Potassium 3.8 (3.5-5.1) mmol/L Chloride 98 (98-107) mmol/L Carbon Dioxide 27 (21-32) mmol/L Anion Gap 14.8 H (7-13) mEq/L BUN 15 (7-18) mg/dL Creatinine 0.73 (0.70-1.30) mg/dL Est Cr Clr Drug Dosing 97.42 mL/min Estimated GFR (MDRD) > 60 BUN/Creatinine Ratio 20.5 (No establ ref range) Glucose 194 H (70-99) mg/dL Lactic Acid (0.4-2.0) mmol/L Calcium 8.8 (8.5-10.1) mg/dL Magnesium 2.5 H (1.8-2.4) mg/dL Total Bilirubin 0.9 (0.2-1.0) mg/dL AST 32 (15-37) U/L ALT 44 (16-63) U/L Alkaline Phosphatase 51 (46-116) U/L Troponin I High Sens 6 (<=76) pg/mL C-Reactive Protein 9.7 H (0.0-0.9) mg/dL Total Protein 6.8 (6.4-8.2) g/dL Albumin 3.0 L (3.4-5.0) g/dL Globulin 3.8 Albumin/Globulin Ratio 0.79 Amylase 58 (25-115) U/L Lipase 199 (73-393) U/L 11/02/21 11/02/21 Range/Units 22:15 22:15 WBC (5.0-10.0) 10^3/uL RBC (4.6-6.2) 10^6/uL Hgb (14.0-18.0) g/dL Hct (40.0-54.0) % MCV (80-100) fL MCH (27.0-34.0) pg MCHC (33.0-35.0) g/dL Plt Count (150-450) 10^3/uL Neut % (Auto) (42.2-75.2) % Lymph % (Auto) (20.5-50.1) % [place] % (Auto) (2-8) % Eos % (Auto) (1.0-3.0) % Baso % (Auto) (0.0-1.0) % Add Manual Diff Neutrophils % (Manual) (42-75) % Lymphocytes % (Manual) (20-50) % Monocytes % (Manual) (2-8) % PT 11.3 (9.0-12.0) SEC INR 1.1 (0.9-1.2) APTT 29.0 (22.0-34.0) SEC D-Dimer, Quantitative 211 (0-400) ng/mL ABG pH (7.35-7.45) ABG pCO2 (35-45) mmHg ABG pO2 (70-100) mmHg ABG HCO3 (22-26) mmol/L ABG O2 Saturation (95-100) % ABG Base Excess ((-2)-(+3)) mmol/L Stephen Test O2 Delivery Device Sodium (136-145) mmol/L Potassium (3.5-5.1) mmol/L Chloride (98-107) mmol/L Carbon Dioxide (21-32) mmol/L Anion Gap (7-13) mEq/L BUN (7-18) mg/dL Creatinine (0.70-1.30) mg/dL Est Cr Clr Drug Dosing mL/min Estimated GFR (MDRD) BUN/Creatinine Ratio (No establ ref range) Glucose (70-99) mg/dL Lactic Acid 1.6 (0.4-2.0) mmol/L Calcium (8.5-10.1) mg/dL Magnesium (1.8-2.4) mg/dL Total Bilirubin (0.2-1.0) mg/dL AST (15-37) U/L ALT (16-63) U/L Alkaline Phosphatase (46-116) U/L Troponin I High Sens (<=76) pg/mL C-Reactive Protein (0.0-0.9) mg/dL Total Protein (6.4-8.2) g/dL Albumin (3.4-5.0) g/dL Globulin Albumin/Globulin Ratio Amylase (25-115) U/L Lipase (73-393) U/L Result Diagrams: 11/02/21 22:15 11/02/21 22:15 - Problem List (1) Atrial fibrillation with RVR SNOMED Code(s): 364118702611195 ICD Code: I48.91 - UNSPECIFIED ATRIAL FIBRILLATION Status: Acute Current Visit: No (2) COVID-19 SNOMED Code(s): 674136523 ICD Code: U07.1 - COVID-19 Status: Acute Current Visit: No (3) Acute hypoxemic respiratory failure SNOMED Code(s): 299518375 ICD Code: J96.01 - ACUTE RESPIRATORY FAILURE WITH HYPOXIA Status: Acute Current Visit: Yes Problem List Initiated/Reviewed/Updated: Yes Orders Last 24hrs: Active Orders 24 hr Category Date Time Status Admission Diagnosis [ADT] Stat ADT 11/02/21 23:52 Ordered Admission Status [Patient Status] [ADT] Routine ADT 11/02/21 23:52 Active Cardiac Monitoring [RC] . DIRECTED Care 11/02/21 23:52 Active Oxygen Therapy [RC] PRN Care 11/03/21 00:12 Ordered Telemetry Monitoring [Cardiac Monitoring] [RC] . Care 11/03/21 00:16 Ordered DIRECTED VTE/DVT Education [RC] PER UNIT ROUTINE Care 11/03/21 00:12 Ordered Vital Signs [RC] Q4H Care 11/03/21 00:12 Ordered Regular Diet [DIET] Diet 11/03/21 Breakfast Ordered CULTURE BLOOD [BC] Stat Lab 11/03/21 00:15 Ordered CULTURE BLOOD [BC] Stat Lab 11/03/21 00:15 Ordered Acetaminophen [TylenoL] Med 11/03/21 00:12 Ordered 650 mg PO Q4H PRN Diltiazem 125 mg Med 11/02/21 23:15 Active Sodium Chloride 0.9% [Normal Saline] 100 ml IV TITRATE Metoprolol Tartrate [Lopressor] Med 11/03/21 00:16 Once 25 mg PO ONETIME ONE Piperacillin/Tazobactam [Zosyn] 4.5 gm Med 11/03/21 06:00 Ordered Sodium Chloride 0.9% [Normal Saline AdvBag] 100 ml IV Q6HR Blood Culture x2 Reflex Set [OM.PC] Stat Oth 11/03/21 00:15 Ordered Resuscitation Status Routine Resus Stat 11/03/21 00:12 Ordered Medication Orders Acetaminophen (Acetaminophen 325 Mg Tab) 650 mg PO Q4H PRN PRN Reason: Pain (Mild 1-3)/fever Diltiazem HCl 125 mg/ Sodium (Chloride) 125 mls @ 5 mls/hr IV TITRATE CHRISSY; Protocol Last Titration: 11/02/21 23:51 Dose: 10 mg/hr, 10 mls/hr Documented by: Admin: 11/02/21 23:37 Dose: 5 mg/hr, 5 mls/hr Documented by: EUGENIA Piperacillin Sod/Tazobactam (Sod 4.5 gm/ Sodium Chloride) 100 mls @ 200 mls/hr IV Q6HR CHRISSY Metoprolol Tartrate (Metoprolol Tartrate 25 Mg Tab) 25 mg PO ONETIME ONE Stop: 11/03/21 00:17 Assessment/Plan Comment:: Patient is a 71-year-old male with a history of atrial fibrillation on chronic anticoagulation with Eliquis, recent COVID-19 diagnosis, recent hospitalization from 10-29 through 10-31 for Covid pneumonia, A. fib with RVR who presents with initial complaints of gastrointestinal symptoms and was found to have hypoxia and A. fib with rapid ventricular response. # Acute hypoxic respiratory failure -Patient requiring 2L via NC to maintain oxygen saturations -Chest x-ray showed worsening infiltrate concerning for multifocal pneumonia. Hypoxia likely secondary to multifocal pneumonia versus recent COVID-19 inflammation and infection versus flash pulmonary edema from recurrent atrial fibrillation with rapid ventricular response versus combination. -We will obtain blood cultures, treat patient with IV Zosyn -Supplemental oxygen to maintain oxygen saturations greater than 90% # Atrial fibrillation with rapid ventricular response -Likely secondary to recent COVID-19 infection, possible new secondary bacterial pneumonia contributing, dexamethasone for treatment of COVID-19 could also be contributing. Recent TSH was normal and patient was on levothyroxine. -Continue diltiazem drip with up titration as necessary for target heart rate of 90-1 10. Will give patient a dose of p.o. 25 mg Toprol tartrate now and 50 mg p.o. Toprol tartrate in a.m. -Continue Eliquis -Telemetry monitoring # COVID 19 infection -Positive tests 10-20-21 -prior treatments include remdesivir, patient is currently on 6 mg PO dexamethasone for an additional 4 to 5 days #Hypothyroidismcontinue levothyroxine Fluidsnone Electrolyteswithin normal limits, will give potassium supplementation to celividhya landon magnesium potassium above to inform selectively DietGeneral DVT prophylaxis Eliquis
[2021-11-03] MEDS ORDERED: Albuterol/Ipratropium 3.0-0.5 MG/3 ML Neb Soln NEB PRN (00:58)
[2021-11-03] MEDS ORDERED: Potassium Chloride 10 MEQ Tab.ER PO ONE (01:00)
[2021-11-03] MEDS: Piperacillin/Tazobactam 4.5 GM in Sodium Chloride 0.9% 100 ML IV SCH ×4 (01:33→17:59)
[2021-11-03] MEDS: Metoprolol Tartrate 50 MG Tab PO SCH ×2 (06:23→18:07)
[2021-11-03] MEDS: Levothyroxine 50 MCG Tab PO SCH (06:24)
--- NOTE | 2021-11-03 06:53 | PCM.PN ---
- General Info Date of Service: 11/03/21 Admission Dx/Problem (Free Text): Admission Diagnosis/Problem Admission Diagnosis/Problem Paroxysmal atrial fibrillation with rapid ventricular response - Patient Data Vitals - Most Recent: Last Vital Signs Temp 100 F 11/03/21 01:01 Pulse 89 11/03/21 06:23 Resp 26 H 11/03/21 01:01 BP 122/81 11/03/21 06:23 Pulse Ox 90 L 11/03/21 01:01 Weight - Most Recent: 234 lb 9.6 oz Lab Results Last 24 Hours: Laboratory Results - last 24 hr 11/02/21 11/02/21 11/02/21 Range/Units 21:55 22:15 22:15 WBC 9.7 (5.0-10.0) 10^3/uL RBC 4.43 L (4.6-6.2) 10^6/uL Hgb 13.9 L D (14.0-18.0) g/dL Hct 41.3 (40.0-54.0) % MCV 93.2 (80-100) fL MCH 31.4 (27.0-34.0) pg MCHC 33.7 (33.0-35.0) g/dL Plt Count 188 (150-450) 10^3/uL Neut % (Auto) 89.8 H (42.2-75.2) % Lymph % (Auto) 5.4 L (20.5-50.1) % [place] % (Auto) 4.7 (2-8) % Eos % (Auto) 0.0 L (1.0-3.0) % Baso % (Auto) 0.1 (0.0-1.0) % Add Manual Diff Yes Neutrophils % (Manual) 92 H (42-75) % Lymphocytes % (Manual) 4 L (20-50) % Monocytes % (Manual) 4 (2-8) % PT (9.0-12.0) SEC INR (0.9-1.2) APTT (22.0-34.0) SEC D-Dimer, Quantitative (0-400) ng/mL ABG pH 7.48 H (7.35-7.45) ABG pCO2 34 L (35-45) mmHg ABG pO2 66 L (70-100) mmHg ABG HCO3 24.7 (22-26) mmol/L ABG O2 Saturation 94 L (95-100) % ABG Base Excess 2 ((-2)-(+3)) mmol/L Stephen Test Positive O2 Delivery Device Nasal cannula Sodium 136 (136-145) mmol/L Potassium 3.8 (3.5-5.1) mmol/L Chloride 98 (98-107) mmol/L Carbon Dioxide 27 (21-32) mmol/L Anion Gap 14.8 H (7-13) mEq/L BUN 15 (7-18) mg/dL Creatinine 0.73 (0.70-1.30) mg/dL Est Cr Clr Drug Dosing 97.42 mL/min Estimated GFR (MDRD) > 60 BUN/Creatinine Ratio 20.5 (No establ ref range) Glucose 194 H (70-99) mg/dL Lactic Acid (0.4-2.0) mmol/L Calcium 8.8 (8.5-10.1) mg/dL Magnesium 2.5 H (1.8-2.4) mg/dL Total Bilirubin 0.9 (0.2-1.0) mg/dL AST 32 (15-37) U/L ALT 44 (16-63) U/L Alkaline Phosphatase 51 (46-116) U/L Troponin I High Sens 6 (<=76) pg/mL C-Reactive Protein 9.7 H (0.0-0.9) mg/dL Total Protein 6.8 (6.4-8.2) g/dL Albumin 3.0 L (3.4-5.0) g/dL Globulin 3.8 Albumin/Globulin Ratio 0.79 Amylase 58 (25-115) U/L Lipase 199 (73-393) U/L 11/02/21 11/02/21 Range/Units 22:15 22:15 WBC (5.0-10.0) 10^3/uL RBC (4.6-6.2) 10^6/uL Hgb (14.0-18.0) g/dL Hct (40.0-54.0) % MCV (80-100) fL MCH (27.0-34.0) pg MCHC (33.0-35.0) g/dL Plt Count (150-450) 10^3/uL Neut % (Auto) (42.2-75.2) % Lymph % (Auto) (20.5-50.1) % [place] % (Auto) (2-8) % Eos % (Auto) (1.0-3.0) % Baso % (Auto) (0.0-1.0) % Add Manual Diff Neutrophils % (Manual) (42-75) % Lymphocytes % (Manual) (20-50) % Monocytes % (Manual) (2-8) % PT 11.3 (9.0-12.0) SEC INR 1.1 (0.9-1.2) APTT 29.0 (22.0-34.0) SEC D-Dimer, Quantitative 211 (0-400) ng/mL ABG pH (7.35-7.45) ABG pCO2 (35-45) mmHg ABG pO2 (70-100) mmHg ABG HCO3 (22-26) mmol/L ABG O2 Saturation (95-100) % ABG Base Excess ((-2)-(+3)) mmol/L Stephen Test O2 Delivery Device Sodium (136-145) mmol/L Potassium (3.5-5.1) mmol/L Chloride (98-107) mmol/L Carbon Dioxide (21-32) mmol/L Anion Gap (7-13) mEq/L BUN (7-18) mg/dL Creatinine (0.70-1.30) mg/dL Est Cr Clr Drug Dosing mL/min Estimated GFR (MDRD) BUN/Creatinine Ratio (No establ ref range) Glucose (70-99) mg/dL Lactic Acid 1.6 (0.4-2.0) mmol/L Calcium (8.5-10.1) mg/dL Magnesium (1.8-2.4) mg/dL Total Bilirubin (0.2-1.0) mg/dL AST (15-37) U/L ALT (16-63) U/L Alkaline Phosphatase (46-116) U/L Troponin I High Sens (<=76) pg/mL C-Reactive Protein (0.0-0.9) mg/dL Total Protein (6.4-8.2) g/dL Albumin (3.4-5.0) g/dL Globulin Albumin/Globulin Ratio Amylase (25-115) U/L Lipase (73-393) U/L Med Orders - Current: Current Medications Acetaminophen (Acetaminophen 325 Mg Tab) 650 mg PO Q4H PRN PRN Reason: Pain (Mild 1-3)/fever Albuterol/Ipratropium (Albuterol/Ipratropium 3.0-0.5 Mg/3 Ml Neb Soln) 3 ml NEB Q4H PRN PRN Reason: Shortness of Breath Apixaban (Apixaban 5 Mg Tab) 5 mg PO BID CHRISSY Aspirin (Aspirin 81 Mg Tab.Ec) 81 mg PO DAILY CHRISSY Diltiazem HCl 125 mg/ Sodium (Chloride) 125 mls @ 5 mls/hr IV TITRATE CHRISSY; Protocol Last Titration: 11/02/21 23:51 Dose: 10 mg/hr, 10 mls/hr Documented by: Piperacillin Sod/Tazobactam (Sod 4.5 gm/ Sodium Chloride) 100 mls @ 200 mls/hr IV Q6HR CHRISSY Last Admin: 11/03/21 06:24 Dose: 200 mls/hr Documented by: Levothyroxine Sodium (Levothyroxine 50 Mcg Tab) 50 mcg PO ACBREAKFAST CHRISSY Last Admin: 11/03/21 06:24 Dose: 50 mcg Documented by: Metoprolol Tartrate (Metoprolol Tartrate 50 Mg Tab) 50 mg PO Q12H CHRISSY Last Admin: 11/03/21 06:23 Dose: 50 mg Documented by: Discontinued Medications Diltiazem HCl (Diltiazem 25 Mg/5 Ml Sdv) 10 mg IVPUSH ONETIME ONE Stop: 11/02/21 22:27 Last Admin: 11/02/21 22:46 Dose: 10 mg Documented by: Metoprolol Tartrate (Metoprolol Tartrate 25 Mg Tab) 25 mg PO ONETIME ONE Stop: 11/03/21 00:17 Last Admin: 11/03/21 01:28 Dose: 25 mg Documented by: Potassium Chloride (Potassium Chloride 10 Meq Tab.Er) 20 meq PO ONETIME ONE Stop: 11/03/21 01:01 Last Admin: 11/03/21 01:09 Dose: 20 meq Documented by: - Patient Data Lab Results Last 24 hrs: Laboratory Results - last 24 hr 11/02/21 11/02/21 11/02/21 Range/Units 21:55 22:15 22:15 WBC 9.7 (5.0-10.0) 10^3/uL RBC 4.43 L (4.6-6.2) 10^6/uL Hgb 13.9 L D (14.0-18.0) g/dL Hct 41.3 (40.0-54.0) % MCV 93.2 (80-100) fL MCH 31.4 (27.0-34.0) pg MCHC 33.7 (33.0-35.0) g/dL Plt Count 188 (150-450) 10^3/uL Neut % (Auto) 89.8 H (42.2-75.2) % Lymph % (Auto) 5.4 L (20.5-50.1) % [place] % (Auto) 4.7 (2-8) % Eos % (Auto) 0.0 L (1.0-3.0) % Baso % (Auto) 0.1 (0.0-1.0) % Add Manual Diff Yes Neutrophils % (Manual) 92 H (42-75) % Lymphocytes % (Manual) 4 L (20-50) % Monocytes % (Manual) 4 (2-8) % PT (9.0-12.0) SEC INR (0.9-1.2) APTT (22.0-34.0) SEC D-Dimer, Quantitative (0-400) ng/mL ABG pH 7.48 H (7.35-7.45) ABG pCO2 34 L (35-45) mmHg ABG pO2 66 L (70-100) mmHg ABG HCO3 24.7 (22-26) mmol/L ABG O2 Saturation 94 L (95-100) % ABG Base Excess 2 ((-2)-(+3)) mmol/L Stephen Test Positive O2 Delivery Device Nasal cannula Sodium 136 (136-145) mmol/L Potassium 3.8 (3.5-5.1) mmol/L Chloride 98 (98-107) mmol/L Carbon Dioxide 27 (21-32) mmol/L Anion Gap 14.8 H (7-13) mEq/L BUN 15 (7-18) mg/dL Creatinine 0.73 (0.70-1.30) mg/dL Est Cr Clr Drug Dosing 97.42 mL/min Estimated GFR (MDRD) > 60 BUN/Creatinine Ratio 20.5 (No establ ref range) Glucose 194 H (70-99) mg/dL Lactic Acid (0.4-2.0) mmol/L Calcium 8.8 (8.5-10.1) mg/dL Magnesium 2.5 H (1.8-2.4) mg/dL Total Bilirubin 0.9 (0.2-1.0) mg/dL AST 32 (15-37) U/L ALT 44 (16-63) U/L Alkaline Phosphatase 51 (46-116) U/L Troponin I High Sens 6 (<=76) pg/mL C-Reactive Protein 9.7 H (0.0-0.9) mg/dL Total Protein 6.8 (6.4-8.2) g/dL Albumin 3.0 L (3.4-5.0) g/dL Globulin 3.8 Albumin/Globulin Ratio 0.79 Amylase 58 (25-115) U/L Lipase 199 (73-393) U/L 11/02/21 11/02/21 Range/Units 22:15 22:15 WBC (5.0-10.0) 10^3/uL RBC (4.6-6.2) 10^6/uL Hgb (14.0-18.0) g/dL Hct (40.0-54.0) % MCV (80-100) fL MCH (27.0-34.0) pg MCHC (33.0-35.0) g/dL Plt Count (150-450) 10^3/uL Neut % (Auto) (42.2-75.2) % Lymph % (Auto) (20.5-50.1) % [place] % (Auto) (2-8) % Eos % (Auto) (1.0-3.0) % Baso % (Auto) (0.0-1.0) % Add Manual Diff Neutrophils % (Manual) (42-75) % Lymphocytes % (Manual) (20-50) % Monocytes % (Manual) (2-8) % PT 11.3 (9.0-12.0) SEC INR 1.1 (0.9-1.2) APTT 29.0 (22.0-34.0) SEC D-Dimer, Quantitative 211 (0-400) ng/mL ABG pH (7.35-7.45) ABG pCO2 (35-45) mmHg ABG pO2 (70-100) mmHg ABG HCO3 (22-26) mmol/L ABG O2 Saturation (95-100) % ABG Base Excess ((-2)-(+3)) mmol/L Stephen Test O2 Delivery Device Sodium (136-145) mmol/L Potassium (3.5-5.1) mmol/L Chloride (98-107) mmol/L Carbon Dioxide (21-32) mmol/L Anion Gap (7-13) mEq/L BUN (7-18) mg/dL Creatinine (0.70-1.30) mg/dL Est Cr Clr Drug Dosing mL/min Estimated GFR (MDRD) BUN/Creatinine Ratio (No establ ref range) Glucose (70-99) mg/dL Lactic Acid 1.6 (0.4-2.0) mmol/L Calcium (8.5-10.1) mg/dL Magnesium (1.8-2.4) mg/dL Total Bilirubin (0.2-1.0) mg/dL AST (15-37) U/L ALT (16-63) U/L Alkaline Phosphatase (46-116) U/L Troponin I High Sens (<=76) pg/mL C-Reactive Protein (0.0-0.9) mg/dL Total Protein (6.4-8.2) g/dL Albumin (3.4-5.0) g/dL Globulin Albumin/Globulin Ratio Amylase (25-115) U/L Lipase (73-393) U/L Result Diagrams: 11/02/21 22:15 11/02/21 22:15 Sepsis Event Note - Evaluation Sepsis Screening Result: No Definite Risk - Focused Exam Vital Signs: Vital Signs Temp Pulse Pulse Resp BP BP BP 11/03/21 06:23 89 122/81 11/03/21 02:45 90 120/75 11/03/21 02:30 106 H 123/82 11/03/21 02:15 100 120/77 11/03/21 02:00 112 H 128/77 11/03/21 01:35 106 H 136/70 11/03/21 01:28 102 H 116/77 11/03/21 01:01 100 F 91 26 H 116/77 11/03/21 00:12 11/02/21 23:45 100.7 F H 136 H 32 H 137/78 11/02/21 21:10 98.6 F 131 H 24 H 174/113 H Pulse Ox Pulse Ox 11/03/21 06:23 11/03/21 02:45 11/03/21 02:30 11/03/21 02:15 11/03/21 02:00 11/03/21 01:35 11/03/21 01:28 11/03/21 01:01 90 L 11/03/21 00:12 93 L 11/02/21 23:45 92 L 11/02/21 21:10 85 L - Problem List & Annotations (1) Atrial fibrillation with RVR SNOMED Code(s): 492722520210790 Code(s): I48.91 - UNSPECIFIED ATRIAL FIBRILLATION Status: Acute Current Visit: No (2) COVID-19 SNOMED Code(s): 421011881 Code(s): U07.1 - COVID-19 Status: Acute Current Visit: No (3) Acute hypoxemic respiratory failure SNOMED Code(s): 095560418 Code(s): J96.01 - ACUTE RESPIRATORY FAILURE WITH HYPOXIA Status: Acute Current Visit: Yes - Problem List Review Problem List Initiated/Reviewed/Updated: Yes - My Orders Last 24 Hours: My Active Orders 11/03/21 00:12 Oxygen Therapy [RC] PRN VTE/DVT Education [RC] PER UNIT ROUTINE Vital Signs [RC] 04,08,12,16,20,00 Acetaminophen [TylenoL] 650 mg PO Q4H PRN Resuscitation Status Routine 11/03/21 00:15 Blood Culture x2 Reflex Set [OM.PC] Stat 11/03/21 00:16 Telemetry Monitoring [Cardiac Monitoring] [RC] . DIRECTED 11/03/21 00:30 Piperacillin/Tazobactam [Zosyn] 4.5 gm Sodium Chloride 0.9% [Normal Saline AdvBag] 100 ml IV Q6HR 11/03/21 00:55 CULTURE BLOOD [BC] Stat 11/03/21 00:58 RT Aerosol Therapy [RC] ASDIRECTED Albuterol/Ipratropium [DuoNeb 3.0-0.5 MG/3 ML] 3 ml NEB Q4H PRN 11/03/21 01:00 CULTURE BLOOD [BC] Stat 11/03/21 06:00 Levothyroxine [Synthroid] 50 mcg PO ACBREAKFAST Metoprolol Tartrate [Lopressor] 50 mg PO Q12H 11/03/21 Breakfast Regular Diet [DIET] 11/03/21 09:00 Apixaban [Eliquis] 5 mg PO BID Aspirin [Halfprin] 81 mg PO DAILY - Plan Plan:: Patient is a 71-year-old male with a history of atrial fibrillation on chronic anticoagulation with Eliquis, recent COVID-19 diagnosis, recent hospitalization from 10-29 through 10-31 for Covid pneumonia, A. fib with RVR who presents with initial complaints of gastrointestinal symptoms and was found to have hypoxia and A. fib with rapid ventricular response. # Acute hypoxic respiratory failure -Patient initially required 2L via nasal cannula - now requiring significant increase oxygen via nasal cannula - will transition to HFNC -Chest x-ray showed worsening infiltrate concerning for multifocal pneumonia. Hypoxia likely secondary to multifocal pneumonia versus recent COVID-19 inflammation and infection versus flash pulmonary edema from recurrent atrial fibrillation with rapid ventricular response versus combination. -blood cultures X2 in process -will treat patient empirically with IV Zosyn -Supplemental oxygen to maintain oxygen saturations greater than 90% # Atrial fibrillation with rapid ventricular response -Likely secondary to recent COVID-19 infection, possible new secondary bacterial pneumonia contributing, dexamethasone for treatment of COVID-19 could also be contributing. Recent TSH was normal and patient was on levothyroxine. -Continue diltiazem drip with up titration as necessary for target heart rate of 90-110. Will give patient a dose of p.o. 50 metoprolol BID -Continue Eliquis -Telemetry monitoring # COVID 19 infection -Positive tests 10-20-21 -prior treatments include remdesivir, patient is currently on 6 mg PO dexamethasone for an additional 4 to 5 days # Hypothyroidismcontinue levothyroxine Fluidsnone Electrolyteswithin normal limits DietGeneral DVT prophylaxis Eliquis
[2021-11-03] MEDS: Aspirin 81 MG Tab.EC PO SCH (09:45)
[2021-11-03] MEDS: Apixaban 5 MG Tab PO SCH ×2 (09:45→20:52)
--- NOTE | 2021-11-03 12:59 | PCM.SN.2 ---
- Free Text/Narrative Note: Patient was placed on high flow nasal cannula. Patient is currently requiring 90% FiO2 40 L to maintain oxygen saturation 90%. Chest x-ray shows worsening bilateral pulmonary infiltrates concerning for an ARDS, worsening COVID-19 pneumonia, question superimposed bacterial pneumonia. Patient is already on broad-spectrum antibiotics. Will attempt to diurese gently with IV 20 mg Lasix. We will also utilize tocilizumab given that patient is having worsening oxygen requirements. Patient remains a full code. Family is updated.
[2021-11-03] MEDS ORDERED: Furosemide 20 MG/2 ML VIAL IVPUSH ONE (13:00)
--- NOTE | 2021-11-03 13:11 | CR ---
EXAMINATION: Chest 1V Frontal SEX: Male AGE: 71 years CLINICAL HISTORY: 71-year-old male with hypoxia. Comparison CXRs 29 October and October,. Interpretation: ABNORMAL. Severe, progressive radiographic deterioration in the interval since comparison films. Increased dense consolidation both lung cameron gives the appearance of ARDS (acute respiratory distress syndrome). Cardiac silhouette remains unchanged and no dependent new pleural fluid accumulation i.e. no pleural effusions. No atelectasis or collapse. No pneumothorax or pneumomediastinum. Midline tracheobronchial airway unremarkable.
[2021-11-03] MEDS ORDERED: Tocilizumab 800 MG in Sodium Chloride 0.9% 100 ML IV ONE (14:00)
[2021-11-03] MEDS: Diltiazem 125 MG in Sodium Chloride 0.9% 100 ML IV SCH (14:06)
[2021-11-03] MEDS: Albuterol 6.7 GM Inhaler INH SCH ×3 (14:54→21:05)
[2021-11-04] MEDS: Piperacillin/Tazobactam 4.5 GM in Sodium Chloride 0.9% 100 ML IV SCH ×4 (00:06→18:29)
[2021-11-04] MEDS: Albuterol 6.7 GM Inhaler INH SCH ×6 (02:00→21:33)
--- NOTE | 2021-11-04 06:07 | PCM.PN ---
- General Info Date of Service: 11/04/21 Admission Dx/Problem (Free Text): Admission Diagnosis/Problem Admission Diagnosis/Problem Paroxysmal atrial fibrillation with rapid ventricular response Subjective Update: Yesterday patient required increasing of oxygen was placed on high flow nasal cannula. Patient was also given IV Lasix, albuterol inhaler and repositioning with slight improvement in his oxygen requirements. Overnight he was maintaining on 85% FiO2 40 L high flow nasal cannula. This morning patient is alert, orientated and states that he feels his breathing is improved. States he still has a poor appetite and overall feels significantly fatigued. Denies any palpitations, chest pains or pressures, j luis pain, nausea or vomiting. Remainder review systems is negative except those listed above. - Patient Data Vitals - Most Recent: Last Vital Signs Temp 97.7 F 11/04/21 04:00 Pulse 96 11/04/21 04:00 Resp 28 H 11/04/21 04:00 BP 104/75 11/04/21 04:00 Pulse Ox 100 11/04/21 04:00 Weight - Most Recent: 234 lb 9.6 oz I&O - Last 24 Hours: Intake & Output 11/03/21 11/03/21 11/04/21 14:59 22:59 06:59 Intake Total 400 665 Output Total 950 Balance 400 -285 Mj Results Last 24 Hours: Microbiology 11/03/21 00:55 Aerobic Blood Culture - Preliminary Blood - Venous - Lab Draw NO GROWTH AFTER 1 DAY Anaerobic Blood Culture - Preliminary NO GROWTH AFTER 1 DAY 11/03/21 01:00 Aerobic Blood Culture - Preliminary Blood - Venous NO GROWTH AFTER 1 DAY Anaerobic Blood Culture - Preliminary NO GROWTH AFTER 1 DAY Med Orders - Current: Current Medications Acetaminophen (Acetaminophen 325 Mg Tab) 650 mg PO Q4H PRN PRN Reason: Pain (Mild 1-3)/fever Albuterol (Albuterol 6.7 Gm Inhaler) 0 gm INH Q4HR [facility] Last Admin: 11/03/21 21:05 Dose: 2 puff Documented by: Albuterol/Ipratropium (Albuterol/Ipratropium 3.0-0.5 Mg/3 Ml Neb Soln) 3 ml NEB Q4H PRN PRN Reason: Shortness of Breath Apixaban (Apixaban 5 Mg Tab) 5 mg PO BID [facility] Last Admin: 11/03/21 20:52 Dose: 5 mg Documented by: Aspirin (Aspirin 81 Mg Tab.Ec) 81 mg PO DAILY [facility] Last Admin: 11/03/21 09:45 Dose: 81 mg Documented by: Diltiazem HCl 125 mg/ Sodium (Chloride) 125 mls @ 5 mls/hr IV TITRATE [facility]; Protocol Last Admin: 11/03/21 14:06 Dose: 5 mg/hr, 5 mls/hr Documented by: Piperacillin Sod/Tazobactam (Sod 4.5 gm/ Sodium Chloride) 100 mls @ 200 mls/hr IV Q6HR [facility] Last Admin: 11/04/21 00:06 Dose: 200 mls/hr Documented by: Levothyroxine Sodium (Levothyroxine 50 Mcg Tab) 50 mcg PO ACBREAKFAST [facility] Last Admin: 11/03/21 06:24 Dose: 50 mcg Documented by: Metoprolol Tartrate (Metoprolol Tartrate 50 Mg Tab) 50 mg PO Q12H [facility] Last Admin: 11/03/21 18:07 Dose: 50 mg Documented by: Discontinued Medications Diltiazem HCl (Diltiazem 25 Mg/5 Ml Sdv) 10 mg IVPUSH ONETIME ONE Stop: 11/02/21 22:27 Last Admin: 11/02/21 22:46 Dose: 10 mg Documented by: Furosemide (Furosemide 20 Mg/2 Ml Vial) 20 mg IVPUSH ONETIME ONE Stop: 11/03/21 13:01 Last Admin: 11/03/21 13:58 Dose: 20 mg Documented by: Tocilizumab 800 mg/ Sodium (Chloride) 140 mls @ 140 mls/hr IV ONETIME ONE Stop: 11/03/21 14:59 Last Admin: 11/03/21 14:08 Dose: 140 mls/hr Documented by: Metoprolol Tartrate (Metoprolol Tartrate 25 Mg Tab) 25 mg PO ONETIME ONE Stop: 11/03/21 00:17 Last Admin: 11/03/21 01:28 Dose: 25 mg Documented by: Potassium Chloride (Potassium Chloride 10 Meq Tab.Er) 20 meq PO ONETIME ONE Stop: 11/03/21 01:01 Last Admin: 11/03/21 01:09 Dose: 20 meq Documented by: - Exam General: Alert, Oriented HEENT: Pupils Equal Neck: Supple Lungs: Decreased Breath Sounds, Crackles (throughout), Wheezing Cardiovascular: Irregular Rhythm, Tachycardia Back Exam: Normal Inspection Extremities: Normal Inspection, No Pedal Edema Peripheral Pulses: 2+: Radial (L), Radial (R) Skin: Warm, Dry Neurological: No New Focal Deficit Psy/Mental Status: Alert - Patient Data Result Diagrams: 11/02/21 22:15 11/04/21 06:20 Mj Results Last 24 hrs: Microbiology 11/03/21 00:55 Aerobic Blood Culture - Preliminary Blood - Venous - Lab Draw NO GROWTH AFTER 1 DAY Anaerobic Blood Culture - Preliminary NO GROWTH AFTER 1 DAY 11/03/21 01:00 Aerobic Blood Culture - Preliminary Blood - Venous NO GROWTH AFTER 1 DAY Anaerobic Blood Culture - Preliminary NO GROWTH AFTER 1 DAY Sepsis Event Note - Evaluation Sepsis Screening Result: Sepsis Risk - Focused Exam Vital Signs: Vital Signs Temp Pulse Pulse Resp BP BP Pulse Ox 11/04/21 04:00 97.7 F 96 28 H 104/75 100 11/04/21 03:15 96 115/76 92 L 11/04/21 03:00 86 104/69 98 11/04/21 02:45 93 113/68 11/04/21 02:30 85 103/73 97 11/04/21 02:15 101 H 116/69 98 11/04/21 02:00 100 95/68 97 11/04/21 01:45 79 124/63 98 11/04/21 01:30 102 H 114/78 93 L 11/04/21 01:15 74 122/75 97 11/04/21 01:00 94 127/64 95 11/04/21 00:45 68 101/66 98 11/04/21 00:30 100 113/71 99 11/04/21 00:15 98 114/72 94 L 11/04/21 00:12 11/04/21 00:00 97.8 F 84 22 H 130/94 H 99 11/03/21 23:45 92 108/71 96 11/03/21 23:30 107 H 119/78 92 L 11/03/21 23:15 103 H 120/82 90 L 11/03/21 23:00 104 H 127/69 91 L 11/03/21 22:45 102 H 108/70 94 L 11/03/21 22:30 98 109/71 97 11/03/21 22:15 89 108/68 98 11/03/21 22:00 85 119/68 98 11/03/21 21:45 95 119/64 99 11/03/21 21:30 93 123/70 94 L 11/03/21 21:15 95 112/72 92 L 11/03/21 21:00 96 97/73 98 11/03/21 20:45 74 91/65 98 11/03/21 20:30 89 108/74 93 L 11/03/21 20:15 72 100/58 L 93 L 11/03/21 20:00 96.5 F L 109 H 23 H 113/63 98 11/03/21 19:45 96 109/66 95 11/03/21 19:30 102 H 116/73 11/03/21 19:15 107 H 140/82 11/03/21 18:07 91 130/77 Pulse Ox 11/04/21 04:00 11/04/21 03:15 11/04/21 03:00 11/04/21 02:45 11/04/21 02:30 11/04/21 02:15 11/04/21 02:00 11/04/21 01:45 11/04/21 01:30 11/04/21 01:15 11/04/21 01:00 11/04/21 00:45 11/04/21 00:30 11/04/21 00:15 11/04/21 00:12 99 11/04/21 00:00 11/03/21 23:45 11/03/21 23:30 11/03/21 23:15 11/03/21 23:00 11/03/21 22:45 11/03/21 22:30 11/03/21 22:15 11/03/21 22:00 11/03/21 21:45 11/03/21 21:30 11/03/21 21:15 11/03/21 21:00 11/03/21 20:45 11/03/21 20:30 11/03/21 20:15 11/03/21 20:00 11/03/21 19:45 11/03/21 19:30 11/03/21 19:15 11/03/21 18:07 - Problem List & Annotations (1) Atrial fibrillation with RVR SNOMED Code(s): 831058621957725 Code(s): I48.91 - UNSPECIFIED ATRIAL FIBRILLATION Status: Acute Current Visit: No (2) COVID-19 SNOMED Code(s): 835171221 Code(s): U07.1 - COVID-19 Status: Acute Current Visit: No (3) Acute hypoxemic respiratory failure SNOMED Code(s): 463962774 Code(s): J96.01 - ACUTE RESPIRATORY FAILURE WITH HYPOXIA Status: Acute Current Visit: Yes (4) ARDS (adult respiratory distress syndrome) SNOMED Code(s): 44615547, 14910824 Code(s): J80 - ACUTE RESPIRATORY DISTRESS SYNDROME Status: Acute Current Visit: Yes - Problem List Review Problem List Initiated/Reviewed/Updated: Yes - My Orders Last 24 Hours: My Active Orders 11/03/21 06:00 Levothyroxine [Synthroid] 50 mcg PO ACBREAKFAST Metoprolol Tartrate [Lopressor] 50 mg PO Q12H 11/03/21 Breakfast Regular Diet [DIET] 11/03/21 09:00 Apixaban [Eliquis] 5 mg PO BID Aspirin [Halfprin] 81 mg PO DAILY 11/03/21 13:52 RT Post Treatment Assessment [RC] Click to Edit RT Pre-Treatment Assessment [RC] Click to Edit 11/03/21 14:00 Albuterol [Proventil HFA] 0 gm INH Q4HR 11/03/21 15:06 Dietary Supplements [RC] TIDMEALS 11/04/21 05:11 BASIC METABOLIC PANEL,BMP [CHEM] AM 11/04/21 06:00 MAGNESIUM [CHEM] Routine - Plan Plan:: Patient is a 71-year-old male with a history of atrial fibrillation on chronic anticoagulation with Eliquis, recent COVID-19 diagnosis, recent hospitalization from 10-29 through 10-31 for Covid pneumonia, A. fib with RVR who presents with i nitial complaints of gastrointestinal symptoms and was found to have hypoxia and A. fib with rapid ventricular response. # Acute hypoxic respiratory failure -Patient initially required 2L via nasal cannula - now requiring significant increase oxygen via HFNC (currently 85% FiO2) - maintains full code status -Chest x-ray showed worsening infiltrate concerning for multifocal pneumonia on admission - repeat CXR 11/03/21 worsening pulmonary infiltrates - given findings and likely Pa/FIo2 ratio concerning for ARDS -Hypoxia likely secondary to multifocal pneumonia versus recent COVID-19 inflammation and infection versus flash pulmonary edema from recurrent atrial fibrillation with rapid ventricular response versus combination. -blood cultures X2 negative -will treat patient empirically with IV Zosyn - end date 11/08/21 -Supplemental oxygen to maintain oxygen saturations greater than 90% -See COVID treatment below - Utilized IV lasix 11/03/21 # Atrial fibrillation with rapid ventricular response -Likely secondary to recent COVID-19 infection, possible new secondary bacterial pneumonia contributing, dexamethasone for treatment of COVID-19 could also be contributing. Recent TSH was normal and patient was on levothyroxine. -Continue diltiazem drip with up titration as necessary for target heart rate of 90-110. Metoprolol 50 mg BID - will titrate as needed to wean dilt drip -Continue Eliquis -Telemetry monitoring # COVID 19 infection -Positive tests 10-20-21 -prior treatments include remdesivir, Tocilizumab 11/03/21 - patient is currently on 6 mg PO dexamethasone for an additional 5 days - end date 11/07/21 -Laboratory monitoring per protocol # Hypothyroidismcontinue levothyroxine Fluidsnone Electrolyteswithin normal limits DietGeneral DVT prophylaxis Eliquis Dispocontinued inpatient due to hypoxic respiratory failure, atrial fibrillation with RVR
[2021-11-04] MEDS: Metoprolol Tartrate 50 MG Tab PO SCH ×2 (06:34→18:28)
[2021-11-04] MEDS: Levothyroxine 50 MCG Tab PO SCH (06:34)
[2021-11-04 07:02] LABS: ANION GAP 14.8 mEq/L (7-13); CHLORIDE,CL 102 mmol/L (98-107); SODIUM,NA 140 mmol/L (136-145)
[2021-11-04] MEDS: Apixaban 5 MG Tab PO SCH ×2 (09:11→20:00)
[2021-11-04] MEDS: Aspirin 81 MG Tab.EC PO SCH (09:12)
[2021-11-04] MEDS ORDERED: Metoprolol Tartrate 25 MG Tab PO ONE ×2 (09:15→19:19)
[2021-11-04] MEDS ORDERED: Melatonin 3 MG Tab PO PRN (21:21)
[2021-11-05] MEDS: Piperacillin/Tazobactam 4.5 GM in Sodium Chloride 0.9% 100 ML IV SCH ×5 (00:18→23:42)
[2021-11-05] MEDS: Albuterol 6.7 GM Inhaler INH SCH ×6 (01:05→23:47)
[2021-11-05] MEDS: Levothyroxine 50 MCG Tab PO SCH (05:43)
[2021-11-05] MEDS ORDERED: Metoprolol Tartrate 50 MG Tab PO SCH (06:00)
--- NOTE | 2021-11-05 06:24 | PCM.PN ---
- General Info Date of Service: 11/05/21 Admission Dx/Problem (Free Text): Admission Diagnosis/Problem Admission Diagnosis/Problem Paroxysmal atrial fibrillation with rapid ventricular response Subjective Update: Overnight patient had improvement in his oxygenation and was able to be weaned off of high flow nasal cannula and is maintained on nasal cannula at 8 L this a.m. This morning patient is alert, orientated and states that he feels his breathing is again improved. States he is appetite is still poor but was able to eat some food and drinks Ensure this morning. Denies any chest pressure, abdominal pain, palpitations, nausea or vomiting. Remainder review of systems is negative except for listed above. - Patient Data Vitals - Most Recent: Last Vital Signs Temp 97.6 F 11/05/21 04:00 Pulse 112 H 11/05/21 05:40 Resp 26 H 11/05/21 04:00 BP 113/88 11/05/21 05:40 Pulse Ox 95 11/05/21 04:00 Weight - Most Recent: 234 lb 9.6 oz I&O - Last 24 Hours: Intake & Output 11/04/21 11/04/21 11/05/21 14:59 22:59 06:59 Intake Total 120 150 Output Total 1000 Balance -880 150 Lab Results Last 24 Hours: Laboratory Results - last 24 hr 11/04/21 11/04/21 Range/Units 06:20 06:20 Sodium 140 (136-145) mmol/L Potassium 3.8 (3.5-5.1) mmol/L Chloride 102 (98-107) mmol/L Carbon Dioxide 27 (21-32) mmol/L Anion Gap 14.8 H (7-13) mEq/L BUN 16 (7-18) mg/dL Creatinine 0.76 (0.70-1.30) mg/dL Est Cr Clr Drug Dosing 93.57 mL/min Estimated GFR (MDRD) > 60 Glucose 152 H (70-99) mg/dL Calcium 8.7 (8.5-10.1) mg/dL Magnesium 2.7 H (1.8-2.4) mg/dL Mj Results Last 24 Hours: Microbiology 11/03/21 00:55 Aerobic Blood Culture - Preliminary Blood - Venous - Lab Draw NO GROWTH AFTER 2 DAYS Anaerobic Blood Culture - Preliminary NO GROWTH AFTER 2 DAYS 11/03/21 01:00 Aerobic Blood Culture - Preliminary Blood - Venous NO GROWTH AFTER 2 DAYS Anaerobic Blood Culture - Preliminary NO GROWTH AFTER 2 DAYS Med Orders - Current: Current Medications Acetaminophen (Acetaminophen 325 Mg Tab) 650 mg PO Q4H PRN PRN Reason: Pain (Mild 1-3)/fever Albuterol (Albuterol 6.7 Gm Inhaler) 0 gm INH Q4HR [facility] Last Admin: 11/05/21 05:45 Dose: 2 puff Documented by: Albuterol/Ipratropium (Albuterol/Ipratropium 3.0-0.5 Mg/3 Ml Neb Soln) 3 ml NEB Q4H PRN PRN Reason: Shortness of Breath Apixaban (Apixaban 5 Mg Tab) 5 mg PO BID [facility] Last Admin: 11/04/21 20:00 Dose: 5 mg Documented by: Aspirin (Aspirin 81 Mg Tab.Ec) 81 mg PO DAILY [facility] Last Admin: 11/04/21 09:12 Dose: 81 mg Documented by: Diltiazem HCl 125 mg/ Sodium (Chloride) 125 mls @ 5 mls/hr IV TITRATE [facility]; Protocol Last Titration: 11/04/21 09:39 Dose: 0 mg/hr, 0 mls/hr Documented by: Piperacillin Sod/Tazobactam (Sod 4.5 gm/ Sodium Chloride) 100 mls @ 200 mls/hr IV Q6HR [facility] Last Admin: 11/05/21 05:44 Dose: 200 mls/hr Documented by: Levothyroxine Sodium (Levothyroxine 50 Mcg Tab) 50 mcg PO ACBREAKFAST [facility] Last Admin: 11/05/21 05:43 Dose: 50 mcg Documented by: Melatonin (Melatonin 3 Mg Tab) 9 mg PO BEDTIME PRN PRN Reason: Sleep Last Admin: 11/04/21 21:33 Dose: 9 mg Documented by: Metoprolol Tartrate (Metoprolol Tartrate 50 Mg Tab) 75 mg PO Q12H [facility] Last Admin: 11/05/21 05:40 Dose: 75 mg Documented by: Discontinued Medications Diltiazem HCl (Diltiazem 25 Mg/5 Ml Sdv) 10 mg IVPUSH ONETIME ONE Stop: 11/02/21 22:27 Last Admin: 11/02/21 22:46 Dose: 10 mg Documented by: Furosemide (Furosemide 20 Mg/2 Ml Vial) 20 mg IVPUSH ONETIME ONE Stop: 11/03/21 13:01 Last Admin: 11/03/21 13:58 Dose: 20 mg Documented by: Tocilizumab 800 mg/ Sodium (Chloride) 140 mls @ 140 mls/hr IV ONETIME ONE Stop: 11/03/21 14:59 Last Admin: 11/03/21 14:08 Dose: 140 mls/hr Documented by: Metoprolol Tartrate (Metoprolol Tartrate 25 Mg Tab) 25 mg PO ONETIME ONE Stop: 11/03/21 00:17 Last Admin: 11/03/21 01:28 Dose: 25 mg Documented by: Metoprolol Tartrate (Metoprolol Tartrate 50 Mg Tab) 50 mg PO Q12H [facility] Stop: 11/05/21 06:00 Last Admin: 11/04/21 18:28 Dose: 50 mg Documented by: Metoprolol Tartrate (Metoprolol Tartrate 25 Mg Tab) 25 mg PO ONETIME ONE Stop: 11/04/21 09:16 Last Admin: 11/04/21 09:39 Dose: 25 mg Documented by: Metoprolol Tartrate (Metoprolol Tartrate 25 Mg Tab) 25 mg PO ONETIME ONE Stop: 11/04/21 19:20 Last Admin: 11/04/21 19:53 Dose: 25 mg Documented by: Potassium Chloride (Potassium Chloride 10 Meq Tab.Er) 20 meq PO ONETIME ONE Stop: 11/03/21 01:01 Last Admin: 11/03/21 01:09 Dose: 20 meq Documented by: - Exam Quality Assessment: Supplemental Oxygen General: Alert, Oriented HEENT: Pupils Equal Neck: Supple Lungs: Decreased Breath Sounds, Crackles, Wheezing Cardiovascular: Regular Rate, Irregular Rhythm GI/Abdominal Exam: Normal Bowel Sounds, Soft Peripheral Pulses: 2+: Radial (L), Radial (R) Skin: Warm, Dry Neurological: No New Focal Deficit Psy/Mental Status: Alert - Patient Data Lab Results Last 24 hrs: Laboratory Results - last 24 hr 11/04/21 11/04/21 Range/Units 06:20 06:20 Sodium 140 (136-145) mmol/L Potassium 3.8 (3.5-5.1) mmol/L Chloride 102 (98-107) mmol/L Carbon Dioxide 27 (21-32) mmol/L Anion Gap 14.8 H (7-13) mEq/L BUN 16 (7-18) mg/dL Creatinine 0.76 (0.70-1.30) mg/dL Est Cr Clr Drug Dosing 93.57 mL/min Estimated GFR (MDRD) > 60 Glucose 152 H (70-99) mg/dL Calcium 8.7 (8.5-10.1) mg/dL Magnesium 2.7 H (1.8-2.4) mg/dL Result Diagrams: 11/02/21 22:15 11/04/21 06:20 Mj Results Last 24 hrs: Microbiology 11/03/21 00:55 Aerobic Blood Culture - Preliminary Blood - Venous - Lab Draw NO GROWTH AFTER 2 DAYS Anaerobic Blood Culture - Preliminary NO GROWTH AFTER 2 DAYS 11/03/21 01:00 Aerobic Blood Culture - Preliminary Blood - Venous NO GROWTH AFTER 2 DAYS Anaerobic Blood Culture - Preliminary NO GROWTH AFTER 2 DAYS Sepsis Event Note - Evaluation Sepsis Screening Result: Sepsis Risk - Focused Exam Vital Signs: Vital Signs Temp Pulse Pulse Resp BP BP Pulse Ox 11/05/21 05:40 112 H 113/88 11/05/21 04:00 97.6 F 112 H 26 H 95 11/05/21 00:00 97.8 F 107 H 25 H 90 L 11/04/21 22:00 11/04/21 19:54 97.7 F 145 H 22 H 120/74 93 L 11/04/21 19:53 127 H 120/74 11/04/21 18:28 127 H 126/88 Pulse Ox 11/05/21 05:40 11/05/21 04:00 11/05/21 00:00 11/04/21 22:00 98 11/04/21 19:54 11/04/21 19:53 11/04/21 18:28 - Problem List & Annotations (1) Atrial fibrillation with RVR SNOMED Code(s): 892032104239601 Code(s): I48.91 - UNSPECIFIED ATRIAL FIBRILLATION Status: Acute Current Visit: Yes (2) COVID-19 SNOMED Code(s): 569562611 Code(s): U07.1 - COVID-19 Status: Acute Current Visit: No (3) Acute hypoxemic respiratory failure SNOMED Code(s): 486276418 Code(s): J96.01 - ACUTE RESPIRATORY FAILURE WITH HYPOXIA Status: Acute Current Visit: Yes (4) ARDS (adult respiratory distress syndrome) SNOMED Code(s): 35320528, 93664078 Code(s): J80 - ACUTE RESPIRATORY DISTRESS SYNDROME Status: Acute Current Visit: Yes - Problem List Review Problem List Initiated/Reviewed/Updated: Yes - My Orders Last 24 Hours: My Active Orders 11/04/21 21:21 Melatonin 9 mg PO BEDTIME PRN 11/05/21 06:00 Metoprolol Tartrate [Lopressor] 75 mg PO Q12H - Plan Plan:: Patient is a 71-year-old male with a history of atrial fibrillation on chronic anticoagulation with Eliquis, recent COVID-19 diagnosis, recent hospitalization from 10-29 through 10-31 for Covid pneumonia, A. fib with RVR who presents with initial complaints of gastrointestinal symptoms and was found to have hypoxia and A. fib with rapid ventricular response. # Acute hypoxic respiratory failure -Patient initially required 2L via nasal cannula -had required high flow nasal cannula up to 85% FiO2 on 11-04-21 with repeat CXR 11/03/21 worsening pulmonary infiltrates - given findings and likely Pa/FIo2 ratio concerning for ARDS - oxygenation improved on 10-26-21 patient was requiring oxygen via nasal cannula currently 8 L -Chest x-ray showed worsening infiltrate concerning for multifocal pneumonia on admission - -Hypoxia likely secondary to multifocal pneumonia versus recent COVID-19 inflammation and infection versus flash pulmonary edema from recurrent atrial fibrillation with rapid ventricular response versus combination. -Blood cultures X2 negative -will treat patient empirically with IV Zosyn - end date 11/08/21 -Supplemental oxygen to maintain oxygen saturations greater than 90% -See COVID treatment below - Utilized IV lasix 11/03/21 # Atrial fibrillation with rapid ventricular response -Likely secondary to recent COVID-19 infection, possible new secondary bacterial pneumonia contributing, dexamethasone for treatment of COVID-19 could also be contributing. Recent TSH was normal and patient was on levothyroxine. -Patient was able be weaned off of diltiazem dripcontinue metoprolol 50 mg BID -Continue Eliquis -Telemetry monitoring # COVID 19 infection -Positive tests 10-20-21 -prior treatments include remdesivir, Tocilizumab 11/03/21 - patient is currently on 6 mg PO dexamethasone for an additional 5 days - end date 11/07/21 -Laboratory monitoring per protocol # Hypothyroidismcontinue levothyroxine Fluidsnone Electrolyteswithin normal limits DietGeneral DVT prophylaxis Eliquis Dispocontinued inpatient due to hypoxic respiratory failure, atrial fibrillation with RVR
[2021-11-05] MEDS: Aspirin 81 MG Tab.EC PO SCH (10:39)
[2021-11-05] MEDS: Apixaban 5 MG Tab PO SCH ×2 (10:39→20:17)
[2021-11-05] MEDS: Acetaminophen 325 MG Tab PO PRN (10:41)
[2021-11-05] MEDS ORDERED: Metoprolol Tartrate 25 MG Tab PO ONE (11:49)
[2021-11-05] MEDS: Metoprolol Tartrate 50 MG Tab PO SCH (18:17)
[2021-11-06] MEDS: Albuterol 6.7 GM Inhaler INH SCH ×6 (02:12→23:31)
[2021-11-06] MEDS: Metoprolol Tartrate 50 MG Tab PO SCH ×2 (05:18→18:54)
[2021-11-06] MEDS: Levothyroxine 50 MCG Tab PO SCH (05:18)
[2021-11-06] MEDS: Piperacillin/Tazobactam 4.5 GM in Sodium Chloride 0.9% 100 ML IV SCH ×4 (05:20→23:30)
--- NOTE | 2021-11-06 07:06 | PCM.PN ---
- General Info Date of Service: 11/06/21 Admission Dx/Problem (Free Text): Admission Diagnosis/Problem Admission Diagnosis/Problem Paroxysmal atrial fibrillation with rapid ventricular response Subjective Update: Overnight patient maintained his oxygen saturations and is maintained on nasal cannula at 8 L this a.m. This morning patient is alert, orientated and states that he feels his breathing is stable. States he is appetite is still poor but he continues to drink protein shakes in the morning. Denies any chest pressure, abdominal pain, palpitations, nausea or vomiting. Remainder review of systems is negative except for listed above. - Patient Data Vitals - Most Recent: Last Vital Signs Temp 98.3 F 11/06/21 04:00 Pulse 80 11/06/21 05:18 Resp 28 H 11/06/21 04:00 BP 119/69 11/06/21 05:18 Pulse Ox 92 L 11/06/21 06:00 Weight - Most Recent: 234 lb 9.6 oz I&O - Last 24 Hours: Intake & Output 11/05/21 11/06/21 11/06/21 22:59 06:59 14:59 Intake Total 620 600 Balance 620 600 Mj Results Last 24 Hours: Microbiology 11/03/21 00:55 Aerobic Blood Culture - Preliminary Blood - Venous - Lab Draw NO GROWTH AFTER 3 DAYS Anaerobic Blood Culture - Preliminary NO GROWTH AFTER 3 DAYS 11/03/21 01:00 Aerobic Blood Culture - Preliminary Blood - Venous NO GROWTH AFTER 3 DAYS Anaerobic Blood Culture - Preliminary NO GROWTH AFTER 3 DAYS Med Orders - Current: Current Medications Acetaminophen (Acetaminophen 325 Mg Tab) 650 mg PO Q4H PRN PRN Reason: Pain (Mild 1-3)/fever Last Admin: 11/05/21 10:41 Dose: 650 mg Documented by: Albuterol (Albuterol 6.7 Gm Inhaler) 0 gm INH Q4HR ON LICENSE OF [facility] Last Admin: 11/06/21 05:20 Dose: 2 puff Documented by: Albuterol/Ipratropium (Albuterol/Ipratropium 3.0-0.5 Mg/3 Ml Neb Soln) 3 ml NEB Q4H PRN PRN Reason: Shortness of Breath Apixaban (Apixaban 5 Mg Tab) 5 mg PO BID ON LICENSE OF [facility] Last Admin: 11/05/21 20:17 Dose: 5 mg Documented by: Aspirin (Aspirin 81 Mg Tab.Ec) 81 mg PO DAILY ON LICENSE OF [facility] Last Admin: 11/05/21 10:39 Dose: 81 mg Documented by: Diltiazem HCl 125 mg/ Sodium (Chloride) 125 mls @ 5 mls/hr IV TITRATE ON LICENSE OF [facility]; Protocol Last Titration: 11/04/21 09:39 Dose: 0 mg/hr, 0 mls/hr Documented by: Piperacillin Sod/Tazobactam (Sod 4.5 gm/ Sodium Chloride) 100 mls @ 200 mls/hr IV Q6HR ON LICENSE OF [facility] Stop: 11/08/21 11:00 Last Admin: 11/06/21 05:20 Dose: 200 mls/hr Documented by: Levothyroxine Sodium (Levothyroxine 50 Mcg Tab) 50 mcg PO ACBREAKFAST ON LICENSE OF [facility] Last Admin: 11/06/21 05:18 Dose: 50 mcg Documented by: Melatonin (Melatonin 3 Mg Tab) 9 mg PO BEDTIME PRN PRN Reason: Sleep Last Admin: 11/04/21 21:33 Dose: 9 mg Documented by: Metoprolol Tartrate (Metoprolol Tartrate 50 Mg Tab) 100 mg PO Q12H ON LICENSE OF [facility] Last Admin: 11/06/21 05:18 Dose: 100 mg Documented by: Discontinued Medications Diltiazem HCl (Diltiazem 25 Mg/5 Ml Sdv) 10 mg IVPUSH ONETIME ONE Stop: 11/02/21 22:27 Last Admin: 11/02/21 22:46 Dose: 10 mg Documented by: Furosemide (Furosemide 20 Mg/2 Ml Vial) 20 mg IVPUSH ONETIME ONE Stop: 11/03/21 13:01 Last Admin: 11/03/21 13:58 Dose: 20 mg Documented by: Tocilizumab 800 mg/ Sodium (Chloride) 140 mls @ 140 mls/hr IV ONETIME ONE Stop: 11/03/21 14:59 Last Admin: 11/03/21 14:08 Dose: 140 mls/hr Documented by: Metoprolol Tartrate (Metoprolol Tartrate 25 Mg Tab) 25 mg PO ONETIME ONE Stop: 11/03/21 00:17 Last Admin: 11/03/21 01:28 Dose: 25 mg Documented by: Metoprolol Tartrate (Metoprolol Tartrate 50 Mg Tab) 50 mg PO Q12H ON LICENSE OF [facility] Stop: 11/05/21 06:00 Last Admin: 11/04/21 18:28 Dose: 50 mg Documented by: Metoprolol Tartrate (Metoprolol Tartrate 25 Mg Tab) 25 mg PO ONETIME ONE Stop: 11/04/21 09:16 Last Admin: 11/04/21 09:39 Dose: 25 mg Documented by: Metoprolol Tartrate (Metoprolol Tartrate 50 Mg Tab) 75 mg PO Q12H [facility] Last Admin: 11/05/21 05:40 Dose: 75 mg Documented by: Metoprolol Tartrate (Metoprolol Tartrate 25 Mg Tab) 25 mg PO ONETIME ONE Stop: 11/04/21 19:20 Last Admin: 11/04/21 19:53 Dose: 25 mg Documented by: Metoprolol Tartrate (Metoprolol Tartrate 25 Mg Tab) 25 mg PO ONETIME ONE Stop: 11/05/21 11:50 Last Admin: 11/05/21 14:12 Dose: Not Given Documented by: Potassium Chloride (Potassium Chloride 10 Meq Tab.Er) 20 meq PO ONETIME ONE Stop: 11/03/21 01:01 Last Admin: 11/03/21 01:09 Dose: 20 meq Documented by: - Exam Quality Assessment: Supplemental Oxygen General: Alert, Oriented HEENT: Pupils Equal Neck: Supple Lungs: Decreased Breath Sounds, Crackles, Wheezing Cardiovascular: Regular Rate, Regular Rhythm GI/Abdominal Exam: Normal Bowel Sounds, Soft, Non-Tender Back Exam: Normal Inspection Extremities: Normal Inspection Peripheral Pulses: 2+: Radial (L), Radial (R) Skin: Warm, Dry Neurological: No New Focal Deficit Psy/Mental Status: Alert - Patient Data Result Diagrams: 11/02/21 22:15 11/04/21 06:20 Mj Results Last 24 hrs: Microbiology 11/03/21 00:55 Aerobic Blood Culture - Preliminary Blood - Venous - Lab Draw NO GROWTH AFTER 3 DAYS Anaerobic Blood Culture - Preliminary NO GROWTH AFTER 3 DAYS 11/03/21 01:00 Aerobic Blood Culture - Preliminary Blood - Venous NO GROWTH AFTER 3 DAYS Anaerobic Blood Culture - Preliminary NO GROWTH AFTER 3 DAYS Sepsis Event Note - Evaluation Sepsis Screening Result: No Definite Risk - Focused Exam Vital Signs: Vital Signs Temp Pulse Pulse Resp BP BP Pulse Ox 11/06/21 06:00 11/06/21 05:18 80 119/69 11/06/21 04:00 98.3 F 70 28 H 119/69 91 L 11/06/21 02:00 11/05/21 23:50 98.5 F 75 22 H 111/70 94 L 11/05/21 22:00 11/05/21 20:00 98.3 F 23 H 104/66 93 L Pulse Ox 11/06/21 06:00 92 L 11/06/21 05:18 11/06/21 04:00 11/06/21 02:00 91 L 11/05/21 23:50 11/05/21 22:00 94 L 11/05/21 20:00 - Problem List & Annotations (1) Atrial fibrillation with RVR SNOMED Code(s): 994517960630761 Code(s): I48.91 - UNSPECIFIED ATRIAL FIBRILLATION Status: Acute Current Visit: Yes (2) COVID-19 SNOMED Code(s): 137067632 Code(s): U07.1 - COVID-19 Status: Acute Current Visit: No (3) Acute hypoxemic respiratory failure SNOMED Code(s): 809743733 Code(s): J96.01 - ACUTE RESPIRATORY FAILURE WITH HYPOXIA Status: Acute Current Visit: Yes (4) ARDS (adult respiratory distress syndrome) SNOMED Code(s): 37134429, 40602139 Code(s): J80 - ACUTE RESPIRATORY DISTRESS SYNDROME Status: Acute Current Visit: Yes - Problem List Review Problem List Initiated/Reviewed/Updated: Yes - My Orders Last 24 Hours: My Active Orders 11/05/21 18:00 Metoprolol Tartrate [Lopressor] 100 mg PO Q12H - Plan Plan:: Patient is a 71-year-old male with a history of atrial fibrillation on chronic anticoagulation with Eliquis, recent COVID-19 diagnosis, recent hospitalization from 10-29 through 10-31 for Covid pneumonia, A. fib with RVR who presents with initial complaints of gastrointestinal symptoms and was found to have hypoxia and A. fib with rapid ventricular response. # Acute hypoxic respiratory failure -Patient initially required 2L via nasal cannula -had required high flow nasal cannula up to 85% FiO2 on 11-04-21 with repeat CXR 11/03/21 worsening pulmonary infiltrates - given findings and likely Pa/FIo2 ratio concerning for ARDS - oxygenation improved on 10-26-21 -patient is requiring oxygen via nasal cannula currently 8 L -Chest x-ray showed worsening infiltrate concerning for multifocal pneumonia on admission - -Hypoxia multifactorial secondary to multifocal pneumonia versus recent COVID-19 inflammation and infection versus flash pulmonary edema from recurrent atrial fibrillation with rapid ventricular response versus combination. -Blood cultures X2 negative -will treat patient empirically with IV Zosyn - end date 11/08/21 -Supplemental oxygen to maintain oxygen saturations greater than 90% -See COVID treatment below - Utilized IV lasix 11/03/21 # Atrial fibrillation with rapid ventricular response -Likely secondary to recent COVID-19 infection, possible new secondary bacterial pneumonia contributing, dexamethasone for treatment of COVID-19 could also be contributing. Recent TSH was normal and patient was on levothyroxine. -Patient was able be weaned off of diltiazem drip 11/04/21converted to sinus 11/05/21 - continue metoprolol 50 mg BID -Continue Eliquis -Telemetry monitoring # COVID 19 infection -Positive tests 10-20-21 -prior treatments include remdesivir, Tocilizumab 11/03/21 - patient is currently on 6 mg PO dexamethasone for an additional 5 days - end date 11/07/21 -Laboratory monitoring per protocol # Hypothyroidismcontinue levothyroxine Fluidsnone Electrolyteswithin normal limits DietGeneral DVT prophylaxis Eliquis Dispocontinued inpatient due to hypoxic respiratory failure
[2021-11-06] MEDS: Apixaban 5 MG Tab PO SCH ×2 (09:38→20:01)
[2021-11-06] MEDS: Aspirin 81 MG Tab.EC PO SCH (09:38)
[2021-11-06] MEDS: Acetaminophen 325 MG Tab PO PRN (11:54)
[2021-11-07] MEDS: Albuterol 6.7 GM Inhaler INH SCH ×6 (01:36→23:44)
[2021-11-07] MEDS: Levothyroxine 50 MCG Tab PO SCH (05:00)
[2021-11-07] MEDS: Metoprolol Tartrate 50 MG Tab PO SCH ×2 (05:00→18:36)
[2021-11-07] MEDS: Piperacillin/Tazobactam 4.5 GM in Sodium Chloride 0.9% 100 ML IV SCH ×4 (05:02→23:43)
--- NOTE | 2021-11-07 06:45 | PCM.PN ---
- General Info Date of Service: 11/07/21 Admission Dx/Problem (Free Text): Admission Diagnosis/Problem Admission Diagnosis/Problem Paroxysmal atrial fibrillation with rapid ventricular response Subjective Update: Overnight patient maintained his oxygen saturations and is maintained on nasal cannula at 6 L this a.m. which is improved. This morning patient is alert, orientated and states that he feels his breathing is stable. States he is appetite is better. Denies any chest pressure, abdominal pain, palpitations, nausea or vomiting. Remainder review of systems is negative except for listed above. - Patient Data Vitals - Most Recent: Last Vital Signs Temp 98.8 F 11/07/21 03:58 Pulse 67 11/07/21 05:00 Resp 22 H 11/07/21 03:58 BP 139/74 11/07/21 05:00 Pulse Ox 91 L 11/07/21 06:00 Weight - Most Recent: 234 lb 9.6 oz I&O - Last 24 Hours: Intake & Output 11/06/21 11/06/21 11/07/21 14:59 22:59 06:59 Intake Total 300 520 120 Output Total 200 Balance 100 520 120 Mj Results Last 24 Hours: Microbiology 11/03/21 00:55 Aerobic Blood Culture - Preliminary Blood - Venous - Lab Draw NO GROWTH AFTER 4 DAYS Anaerobic Blood Culture - Preliminary NO GROWTH AFTER 4 DAYS 11/03/21 01:00 Aerobic Blood Culture - Preliminary Blood - Venous NO GROWTH AFTER 4 DAYS Anaerobic Blood Culture - Preliminary NO GROWTH AFTER 4 DAYS Med Orders - Current: Current Medications Acetaminophen (Acetaminophen 325 Mg Tab) 650 mg PO Q4H PRN PRN Reason: Pain (Mild 1-3)/fever Last Admin: 11/06/21 11:54 Dose: 650 mg Documented by: Albuterol (Albuterol 6.7 Gm Inhaler) 0 gm INH Q4HR [facility] Last Admin: 11/07/21 05:03 Dose: 2 puff Documented by: Albuterol/Ipratropium (Albuterol/Ipratropium 3.0-0.5 Mg/3 Ml Neb Soln) 3 ml NEB Q4H PRN PRN Reason: Shortness of Breath Apixaban (Apixaban 5 Mg Tab) 5 mg PO BID [facility] Last Admin: 11/06/21 20:01 Dose: 5 mg Documented by: Aspirin (Aspirin 81 Mg Tab.Ec) 81 mg PO DAILY [facility] Last Admin: 11/06/21 09:38 Dose: 81 mg Documented by: Piperacillin Sod/Tazobactam (Sod 4.5 gm/ Sodium Chloride) 100 mls @ 200 mls/hr IV Q6HR [facility] Stop: 11/08/21 11:00 Last Admin: 11/07/21 05:02 Dose: 200 mls/hr Documented by: Levothyroxine Sodium (Levothyroxine 50 Mcg Tab) 50 mcg PO ACBREAKFAST [facility] Last Admin: 11/07/21 05:00 Dose: 50 mcg Documented by: Melatonin (Melatonin 3 Mg Tab) 9 mg PO BEDTIME PRN PRN Reason: Sleep Last Admin: 11/04/21 21:33 Dose: 9 mg Documented by: Metoprolol Tartrate (Metoprolol Tartrate 50 Mg Tab) 100 mg PO Q12H [facility] Last Admin: 11/07/21 05:00 Dose: 100 mg Documented by: Discontinued Medications Diltiazem HCl (Diltiazem 25 Mg/5 Ml Sdv) 10 mg IVPUSH ONETIME ONE Stop: 11/02/21 22:27 Last Admin: 11/02/21 22:46 Dose: 10 mg Documented by: Furosemide (Furosemide 20 Mg/2 Ml Vial) 20 mg IVPUSH ONETIME ONE Stop: 11/03/21 13:01 Last Admin: 11/03/21 13:58 Dose: 20 mg Documented by: Diltiazem HCl 125 mg/ Sodium (Chloride) 125 mls @ 5 mls/hr IV TITRATE [facility]; Protocol Last Titration: 11/04/21 09:39 Dose: 0 mg/hr, 0 mls/hr Documented by: Tocilizumab 800 mg/ Sodium (Chloride) 140 mls @ 140 mls/hr IV ONETIME ONE Stop: 11/03/21 14:59 Last Admin: 11/03/21 14:08 Dose: 140 mls/hr Documented by: Metoprolol Tartrate (Metoprolol Tartrate 25 Mg Tab) 25 mg PO ONETIME ONE Stop: 11/03/21 00:17 Last Admin: 11/03/21 01:28 Dose: 25 mg Documented by: Metoprolol Tartrate (Metoprolol Tartrate 50 Mg Tab) 50 mg PO Q12H [facility] Stop: 11/05/21 06:00 Last Admin: 11/04/21 18:28 Dose: 50 mg Documented by: Metoprolol Tartrate (Metoprolol Tartrate 25 Mg Tab) 25 mg PO ONETIME ONE Stop: 11/04/21 09:16 Last Admin: 11/04/21 09:39 Dose: 25 mg Documented by: Metoprolol Tartrate (Metoprolol Tartrate 50 Mg Tab) 75 mg PO Q12H [facility] Last Admin: 11/05/21 05:40 Dose: 75 mg Documented by: Metoprolol Tartrate (Metoprolol Tartrate 25 Mg Tab) 25 mg PO ONETIME ONE Stop: 11/04/21 19:20 Last Admin: 11/04/21 19:53 Dose: 25 mg Documented by: Metoprolol Tartrate (Metoprolol Tartrate 25 Mg Tab) 25 mg PO ONETIME ONE Stop: 11/05/21 11:50 Last Admin: 11/05/21 14:12 Dose: Not Given Documented by: Potassium Chloride (Potassium Chloride 10 Meq Tab.Er) 20 meq PO ONETIME ONE Stop: 11/03/21 01:01 Last Admin: 11/03/21 01:09 Dose: 20 meq Documented by: - Exam Quality Assessment: Supplemental Oxygen General: Alert, Oriented HEENT: Pupils Equal, Pupils Reactive Neck: Supple Lungs: Decreased Breath Sounds, Crackles, Wheezing Cardiovascular: Regular Rate, Regular Rhythm GI/Abdominal Exam: Normal Bowel Sounds, Soft, Non-Tender Back Exam: Normal Inspection Extremities: Normal Inspection, Normal Range of Motion Peripheral Pulses: 2+: Radial (L), Radial (R) Skin: Warm, Dry Neurological: No New Focal Deficit Psy/Mental Status: Alert - Patient Data Result Diagrams: 11/02/21 22:15 11/04/21 06:20 Mj Results Last 24 hrs: Microbiology 11/03/21 00:55 Aerobic Blood Culture - Preliminary Blood - Venous - Lab Draw NO GROWTH AFTER 4 DAYS Anaerobic Blood Culture - Preliminary NO GROWTH AFTER 4 DAYS 11/03/21 01:00 Aerobic Blood Culture - Preliminary Blood - Venous NO GROWTH AFTER 4 DAYS Anaerobic Blood Culture - Preliminary NO GROWTH AFTER 4 DAYS Sepsis Event Note - Evaluation Sepsis Screening Result: No Definite Risk - Focused Exam Vital Signs: Vital Signs Temp Pulse Pulse Resp BP BP Pulse Ox 11/07/21 06:00 11/07/21 05:00 67 139/74 11/07/21 03:58 98.8 F 72 22 H 124/77 89 L 11/07/21 02:00 11/06/21 23:33 98.4 F 73 25 H 128/93 H 90 L 11/06/21 22:00 11/06/21 19:57 98.8 F 73 26 H 139/74 90 L 11/06/21 18:54 77 125/66 Pulse Ox 11/07/21 06:00 91 L 11/07/21 05:00 11/07/21 03:58 11/07/21 02:00 92 L 11/06/21 23:33 11/06/21 22:00 90 L 11/06/21 19:57 11/06/21 18:54 - Problem List & Annotations (1) Atrial fibrillation with RVR SNOMED Code(s): 860361406251515 Code(s): I48.91 - UNSPECIFIED ATRIAL FIBRILLATION Status: Acute Current Visit: Yes (2) COVID-19 SNOMED Code(s): 590788867 Code(s): U07.1 - COVID-19 Status: Acute Current Visit: No (3) Acute hypoxemic respiratory failure SNOMED Code(s): 996306709 Code(s): J96.01 - ACUTE RESPIRATORY FAILURE WITH HYPOXIA Status: Acute Current Visit: Yes (4) ARDS (adult respiratory distress syndrome) SNOMED Code(s): 45372852, 89614729 Code(s): J80 - ACUTE RESPIRATORY DISTRESS SYNDROME Status: Acute Current Visit: Yes - Problem List Review Problem List Initiated/Reviewed/Updated: Yes - Plan Plan:: Patient is a 71-year-old male with a history of atrial fibrillation on chronic anticoagulation with Eliquis, recent COVID-19 diagnosis, recent hospitalization from 10-29 through 10-31 for Covid pneumonia, A. fib with RVR who presents with initial complaints of gastrointestinal symptoms and was found to have hypoxia and A. fib with rapid ventricular response. # Acute hypoxic respiratory failure -Patient initially required 2L via nasal cannula -had required high flow nasal cannula up to 85% FiO2 on 11-04-21 with repeat CXR 11/03/21 worsening pulmonary infiltrates - given findings and likely Pa/FIo2 ratio concerning for ARDS - oxygenation improved on 10-26-21 -patient is requiring oxygen via nasal cannula currently 6 L - continued improvement -Chest x-ray showed worsening infiltrate concerning for multifocal pneumonia on admission - -Hypoxia multifactorial secondary to multifocal pneumonia versus recent COVID-19 inflammation and infection versus flash pulmonary edema from recurrent atrial fibrillation with rapid ventricular response versus combination. -Blood cultures X2 negative -will treat patient empirically with IV Zosyn - end date 11/08/21 -Supplemental oxygen to maintain oxygen saturations greater than 90% -See COVID treatment below - Utilized IV lasix 11/03/21 # Atrial fibrillation with rapid ventricular response -Likely secondary to recent COVID-19 infection, possible new secondary bacterial pneumonia contributing, dexamethasone for treatment of COVID-19 could also be contributing. Recent TSH was normal and patient was on levothyroxine. -Patient was able be weaned off of diltiazem drip 11/04/21converted to sinus 11/05/21 - continue metoprolol 50 mg BID -Continue Eliquis -Telemetry monitoring # COVID 19 infection -Positive tests 10-20-21 -prior treatments include remdesivir (prior hospitalization), Tocilizumab 11/03/21 - Patient completed course of dexamethasone 11/07/21 -Laboratory monitoring per protocol # Hypothyroidismcontinue levothyroxine Fluidsnone Electrolyteswithin normal limits DietGeneral DVT prophylaxis Eliquis Dispocontinued inpatient due to hypoxic respiratory failure -approaching medical stability, possible within the next 1 to 2 days pending oxygen requirements, will discharge with home oxygen
--- NOTE | 2021-11-07 09:46 | CR ---
PROCEDURE INFORMATION: Exam: XR Chest Exam date and time: 11/07/2021 9:15 AM Age: 71 years old Clinical indication: Other: Follow up bilateral infiltrates - hypoxia - covid TECHNIQUE: Imaging protocol: XR of the chest. Views: 1 view. COMPARISON: CR Chest 1V Frontal 11/03/2021 12:29 PM FINDINGS: Lungs: Bilateral peripheral dominant lung airspace opacification is more opaque though not increased in terms of distribution. Pleural spaces: No pneumothorax or pleural effusion. Heart/Mediastinum: Normal heart and cardio-mediastinal silhouette. Vasculature: Normal pulmonary vessels and width of the vascular pedicle. Bones/joints: Intact and normally aligned. No suspicious lesion. IMPRESSION: Evolving bilateral lung infiltrates, more dense but not otherwise changed.
[2021-11-07] MEDS: Apixaban 5 MG Tab PO SCH ×2 (09:54→20:46)
[2021-11-07] MEDS: Aspirin 81 MG Tab.EC PO SCH (09:54)
[2021-11-08] MEDS: Albuterol 6.7 GM Inhaler INH SCH ×6 (02:11→21:23)
[2021-11-08] MEDS: Piperacillin/Tazobactam 4.5 GM in Sodium Chloride 0.9% 100 ML IV SCH (05:08)
[2021-11-08] MEDS: Levothyroxine 50 MCG Tab PO SCH (05:09)
[2021-11-08] MEDS: Metoprolol Tartrate 50 MG Tab PO SCH ×2 (05:09→18:10)
--- NOTE | 2021-11-08 05:25 | PCM.PN ---
- General Info Date of Service: 11/08/21 Admission Dx/Problem (Free Text): Admission Diagnosis/Problem Admission Diagnosis/Problem Paroxysmal atrial fibrillation with rapid ventricular response Subjective Update: Overnight patient maintained his oxygen saturations and is maintained on nasal cannula at 5 L this a.m. which is improved. This morning patient is alert, orientated and states that he feels his breathing is stable. States he is appetite is better. Denies any chest pressure, abdominal pain, palpitations, nausea or vomiting. Remainder review of systems is negative except for listed above. - Patient Data Vitals - Most Recent: Last Vital Signs Temp 97.3 F 11/08/21 04:00 Pulse 63 11/08/21 05:09 Resp 23 H 11/08/21 04:00 BP 121/72 11/08/21 05:09 Pulse Ox 90 L 11/08/21 04:00 Weight - Most Recent: 234 lb 9.6 oz I&O - Last 24 Hours: Intake & Output 11/07/21 11/07/21 11/08/21 14:59 22:59 06:59 Intake Total 365 Output Total 400 Balance -400 365 Mj Results Last 24 Hours: Microbiology 11/03/21 00:55 Aerobic Blood Culture - Final Blood - Venous - Lab Draw NO GROWTH AFTER 5 DAYS Anaerobic Blood Culture - Final NO GROWTH AFTER 5 DAYS 11/03/21 01:00 Aerobic Blood Culture - Final Blood - Venous NO GROWTH AFTER 5 DAYS Anaerobic Blood Culture - Final NO GROWTH AFTER 5 DAYS Med Orders - Current: Current Medications Acetaminophen (Acetaminophen 325 Mg Tab) 650 mg PO Q4H PRN PRN Reason: Pain (Mild 1-3)/fever Last Admin: 11/06/21 11:54 Dose: 650 mg Documented by: Albuterol (Albuterol 6.7 Gm Inhaler) 0 gm INH Q4HR [facility] Last Admin: 11/08/21 05:11 Dose: 2 puff Documented by: Albuterol/Ipratropium (Albuterol/Ipratropium 3.0-0.5 Mg/3 Ml Neb Soln) 3 ml NEB Q4H PRN PRN Reason: Shortness of Breath Apixaban (Apixaban 5 Mg Tab) 5 mg PO BID [facility] Last Admin: 11/07/21 20:46 Dose: 5 mg Documented by: Aspirin (Aspirin 81 Mg Tab.Ec) 81 mg PO DAILY [facility] Last Admin: 11/07/21 09:54 Dose: 81 mg Documented by: Piperacillin Sod/Tazobactam (Sod 4.5 gm/ Sodium Chloride) 100 mls @ 200 mls/hr IV Q6HR [facility] Stop: 11/08/21 11:00 Last Admin: 11/08/21 05:08 Dose: 200 mls/hr Documented by: Levothyroxine Sodium (Levothyroxine 50 Mcg Tab) 50 mcg PO ACBREAKFAST [facility] Last Admin: 11/08/21 05:09 Dose: 50 mcg Documented by: Melatonin (Melatonin 3 Mg Tab) 9 mg PO BEDTIME PRN PRN Reason: Sleep Last Admin: 11/04/21 21:33 Dose: 9 mg Documented by: Metoprolol Tartrate (Metoprolol Tartrate 50 Mg Tab) 100 mg PO Q12H [facility] Last Admin: 11/08/21 05:09 Dose: 100 mg Documented by: Discontinued Medications Diltiazem HCl (Diltiazem 25 Mg/5 Ml Sdv) 10 mg IVPUSH ONETIME ONE Stop: 11/02/21 22:27 Last Admin: 11/02/21 22:46 Dose: 10 mg Documented by: Furosemide (Furosemide 20 Mg/2 Ml Vial) 20 mg IVPUSH ONETIME ONE Stop: 11/03/21 13:01 Last Admin: 11/03/21 13:58 Dose: 20 mg Documented by: Diltiazem HCl 125 mg/ Sodium (Chloride) 125 mls @ 5 mls/hr IV TITRATE [facility]; Protocol Last Titration: 11/04/21 09:39 Dose: 0 mg/hr, 0 mls/hr Documented by: Tocilizumab 800 mg/ Sodium (Chloride) 140 mls @ 140 mls/hr IV ONETIME ONE Stop: 11/03/21 14:59 Last Admin: 11/03/21 14:08 Dose: 140 mls/hr Documented by: Metoprolol Tartrate (Metoprolol Tartrate 25 Mg Tab) 25 mg PO ONETIME ONE Stop: 11/03/21 00:17 Last Admin: 11/03/21 01:28 Dose: 25 mg Documented by: Metoprolol Tartrate (Metoprolol Tartrate 50 Mg Tab) 50 mg PO Q12H [facility] Stop: 11/05/21 06:00 Last Admin: 11/04/21 18:28 Dose: 50 mg Documented by: Metoprolol Tartrate (Metoprolol Tartrate 25 Mg Tab) 25 mg PO ONETIME ONE Stop: 11/04/21 09:16 Last Admin: 11/04/21 09:39 Dose: 25 mg Documented by: Metoprolol Tartrate (Metoprolol Tartrate 50 Mg Tab) 75 mg PO Q12H [facility] Last Admin: 11/05/21 05:40 Dose: 75 mg Documented by: Metoprolol Tartrate (Metoprolol Tartrate 25 Mg Tab) 25 mg PO ONETIME ONE Stop: 11/04/21 19:20 Last Admin: 11/04/21 19:53 Dose: 25 mg Documented by: Metoprolol Tartrate (Metoprolol Tartrate 25 Mg Tab) 25 mg PO ONETIME ONE Stop: 11/05/21 11:50 Last Admin: 11/05/21 14:12 Dose: Not Given Documented by: Potassium Chloride (Potassium Chloride 10 Meq Tab.Er) 20 meq PO ONETIME ONE Stop: 11/03/21 01:01 Last Admin: 11/03/21 01:09 Dose: 20 meq Documented by: - Exam Quality Assessment: Supplemental Oxygen General: Alert, Oriented HEENT: Pupils Equal, Pupils Reactive Neck: Supple Lungs: Normal Respiratory Effort, Decreased Breath Sounds (bases) Cardiovascular: Regular Rate, Regular Rhythm GI/Abdominal Exam: Normal Bowel Sounds, Soft, Non-Tender Extremities: Normal Inspection Peripheral Pulses: 2+: Radial (L), Radial (R) Skin: Warm Neurological: No New Focal Deficit Psy/Mental Status: Alert - Patient Data Result Diagrams: 11/02/21 22:15 11/04/21 06:20 Mj Results Last 24 hrs: Microbiology 11/03/21 00:55 Aerobic Blood Culture - Final Blood - Venous - Lab Draw NO GROWTH AFTER 5 DAYS Anaerobic Blood Culture - Final NO GROWTH AFTER 5 DAYS 11/03/21 01:00 Aerobic Blood Culture - Final Blood - Venous NO GROWTH AFTER 5 DAYS Anaerobic Blood Culture - Final NO GROWTH AFTER 5 DAYS Sepsis Event Note - Evaluation Sepsis Screening Result: No Definite Risk - Focused Exam Vital Signs: Vital Signs Temp Pulse Pulse Resp BP BP Pulse Ox 11/08/21 05:09 63 121/72 11/08/21 04:00 97.3 F 60 23 H 121/72 90 L 11/08/21 02:00 76 11/07/21 23:47 98.3 F 63 24 H 99/79 92 L 11/07/21 22:00 11/07/21 20:39 98.0 F 70 24 H 111/71 94 L 11/07/21 18:36 64 127/61 11/07/21 18:00 Pulse Ox 11/08/21 05:09 11/08/21 04:00 11/08/21 02:00 11/07/21 23:47 11/07/21 22:00 92 L 11/07/21 20:39 11/07/21 18:36 11/07/21 18:00 93 L - Problem List & Annotations (1) Atrial fibrillation with RVR SNOMED Code(s): 092307281984524 Code(s): I48.91 - UNSPECIFIED ATRIAL FIBRILLATION Status: Acute Current Visit: Yes (2) COVID-19 SNOMED Code(s): 818997175 Code(s): U07.1 - COVID-19 Status: Acute Current Visit: No (3) Acute hypoxemic respiratory failure SNOMED Code(s): 033117090 Code(s): J96.01 - ACUTE RESPIRATORY FAILURE WITH HYPOXIA Status: Acute Current Visit: Yes (4) ARDS (adult respiratory distress syndrome) SNOMED Code(s): 22122168, 21762016 Code(s): J80 - ACUTE RESPIRATORY DISTRESS SYNDROME Status: Acute Current Visit: Yes - Problem List Review Problem List Initiated/Reviewed/Updated: Yes - Plan Plan:: Patient is a 71-year-old male with a history of atrial fibrillation on chronic anticoagulation with Eliquis, recent COVID-19 diagnosis, recent hospitalization from 10-29 through 10-31 for Covid pneumonia, A. fib with RVR who presents with initial complaints of gastrointestinal symptoms and was found to have hypoxia and A. fib with rapid ventricular response. # Acute hypoxic respiratory failure -Patient initially required 2L via nasal cannula -Chest x-ray showed worsening infiltrate concerning for multifocal pneumonia on admission -had required high flow nasal cannula up to 85% FiO2 on 11-04-21 with repeat CXR 11/04/21 worsening pulmonary infiltrates - given findings and likely Pa/FIo2 ratio concerning for ARDS -oxygenation improved on 11-05-21 -patient is requiring oxygen via nasal cannula currently 5 L - continued improvement -Hypoxia multifactorial secondary to multifocal pneumonia versus recent COVID-19 inflammation and infection versus flash pulmonary edema from recurrent atrial fibrillation with rapid ventricular response versus combination. -Blood cultures X2 negative - patient treated empirically with IV Zosyn - end date 11/08/21 -Supplemental oxygen to maintain oxygen saturations greater than 90% -See COVID treatment below - Utilized IV lasix 11/03/21 # Atrial fibrillation with rapid ventricular response -Likely secondary to recent COVID-19 infection, possible new secondary bacterial pneumonia contributing, dexamethasone for treatment of COVID-19 could also be contributing. Recent TSH was normal and patient was on levothyroxine. -Patient was able be weaned off of diltiazem drip 11/04/21converted to sinus 11/05/21 - continue PO metoprolol 75 mg BID -Continue Eliquis -Telemetry monitoring -TTE as outpatient # COVID 19 infection -Positive tests 10-20-21 -prior treatments include remdesivir (prior hospitalization), Tocilizumab 11/03/21 - Patient completed course of dexamethasone 11/07/21 -Laboratory monitoring completed per protocol # Hypothyroidismcontinue levothyroxine Fluidsnone Electrolyteswithin normal limits DietGeneral DVT prophylaxis Eliquis Dispocontinued inpatient due to hypoxic respiratory failure -approaching medical stability, possible within the next 1-2 days pending oxygen requirements, will discharge with home oxygen
[2021-11-08] MEDS: Aspirin 81 MG Tab.EC PO SCH (09:25)
[2021-11-08] MEDS: Apixaban 5 MG Tab PO SCH ×2 (09:25→20:14)
[2021-11-09] MEDS: Albuterol 6.7 GM Inhaler INH SCH ×6 (01:40→21:21)
[2021-11-09] MEDS: Metoprolol Tartrate 50 MG Tab PO SCH ×2 (06:10→17:15)
[2021-11-09] MEDS: Levothyroxine 50 MCG Tab PO SCH (06:10)
[2021-11-09] MEDS: Aspirin 81 MG Tab.EC PO SCH (08:29)
[2021-11-09] MEDS: Apixaban 5 MG Tab PO SCH ×2 (08:29→21:21)
--- NOTE | 2021-11-09 13:41 | PCM.PN ---
- General Info Date of Service: 11/09/21 Admission Dx/Problem (Free Text): Admission Diagnosis/Problem Admission Diagnosis/Problem Paroxysmal atrial fibrillation with rapid ventricular response Subjective Update: remained stable, continued to have improving oxygen sats, less need, no associated abd pain no chills duration of illness is days Functional Status: Reports: Tolerating Diet, Ambulating - Review of Systems General: Denies: Fever Pulmonary: Denies: Shortness of Breath Cardiovascular: Denies: Chest Pain Genitourinary: Denies: Dysuria - Patient Data Vitals - Most Recent: Last Vital Signs Temp 96.7 F L 11/09/21 12:00 Pulse 85 11/09/21 12:00 Resp 23 H 11/09/21 12:00 BP 121/71 11/09/21 12:00 Pulse Ox 93 L 11/09/21 13:08 Weight - Most Recent: 234 lb 9.6 oz I&O - Last 24 Hours: Intake & Output 11/08/21 11/09/21 11/09/21 22:59 06:59 14:59 Intake Total 370 0 Balance 370 0 Med Orders - Current: Current Medications Acetaminophen (Acetaminophen 325 Mg Tab) 650 mg PO Q4H PRN PRN Reason: Pain (Mild 1-3)/fever Last Admin: 11/06/21 11:54 Dose: 650 mg Documented by: Albuterol (Albuterol 6.7 Gm Inhaler) 0 gm INH Q4HR [facility] Last Admin: 11/09/21 09:59 Dose: 2 puff Documented by: Albuterol/Ipratropium (Albuterol/Ipratropium 3.0-0.5 Mg/3 Ml Neb Soln) 3 ml NEB Q4H PRN PRN Reason: Shortness of Breath Apixaban (Apixaban 5 Mg Tab) 5 mg PO BID [facility] Last Admin: 11/09/21 08:29 Dose: 5 mg Documented by: Aspirin (Aspirin 81 Mg Tab.Ec) 81 mg PO DAILY [facility] Last Admin: 11/09/21 08:29 Dose: 81 mg Documented by: Levothyroxine Sodium (Levothyroxine 50 Mcg Tab) 50 mcg PO ACBREAKFAST [facility] Last Admin: 11/09/21 06:10 Dose: 50 mcg Documented by: Melatonin (Melatonin 3 Mg Tab) 9 mg PO BEDTIME PRN PRN Reason: Sleep Last Admin: 11/04/21 21:33 Dose: 9 mg Documented by: Metoprolol Tartrate (Metoprolol Tartrate 50 Mg Tab) 100 mg PO Q12H [facility] Last Admin: 11/09/21 06:10 Dose: 100 mg Documented by: Discontinued Medications Diltiazem HCl (Diltiazem 25 Mg/5 Ml Sdv) 10 mg IVPUSH ONETIME ONE Stop: 11/02/21 22:27 Last Admin: 11/02/21 22:46 Dose: 10 mg Documented by: Furosemide (Furosemide 20 Mg/2 Ml Vial) 20 mg IVPUSH ONETIME ONE Stop: 11/03/21 13:01 Last Admin: 11/03/21 13:58 Dose: 20 mg Documented by: Diltiazem HCl 125 mg/ Sodium (Chloride) 125 mls @ 5 mls/hr IV TITRATE [facility]; Protocol Last Titration: 11/04/21 09:39 Dose: 0 mg/hr, 0 mls/hr Documented by: Piperacillin Sod/Tazobactam (Sod 4.5 gm/ Sodium Chloride) 100 mls @ 200 mls/hr IV Q6HR [facility] Stop: 11/08/21 11:00 Last Admin: 11/08/21 05:08 Dose: 200 mls/hr Documented by: Tocilizumab 800 mg/ Sodium (Chloride) 140 mls @ 140 mls/hr IV ONETIME ONE Stop: 11/03/21 14:59 Last Admin: 11/03/21 14:08 Dose: 140 mls/hr Documented by: Metoprolol Tartrate (Metoprolol Tartrate 25 Mg Tab) 25 mg PO ONETIME ONE Stop: 11/03/21 00:17 Last Admin: 11/03/21 01:28 Dose: 25 mg Documented by: Metoprolol Tartrate (Metoprolol Tartrate 50 Mg Tab) 50 mg PO Q12H [facility] Stop: 11/05/21 06:00 Last Admin: 11/04/21 18:28 Dose: 50 mg Documented by: Metoprolol Tartrate (Metoprolol Tartrate 25 Mg Tab) 25 mg PO ONETIME ONE Stop: 11/04/21 09:16 Last Admin: 11/04/21 09:39 Dose: 25 mg Documented by: Metoprolol Tartrate (Metoprolol Tartrate 50 Mg Tab) 75 mg PO Q12H [facility] Last Admin: 11/05/21 05:40 Dose: 75 mg Documented by: Metoprolol Tartrate (Metoprolol Tartrate 25 Mg Tab) 25 mg PO ONETIME ONE Stop: 11/04/21 19:20 Last Admin: 11/04/21 19:53 Dose: 25 mg Documented by: Metoprolol Tartrate (Metoprolol Tartrate 25 Mg Tab) 25 mg PO ONETIME ONE Stop: 11/05/21 11:50 Last Admin: 11/05/21 14:12 Dose: Not Given Documented by: Potassium Chloride (Potassium Chloride 10 Meq Tab.Er) 20 meq PO ONETIME ONE Stop: 11/03/21 01:01 Last Admin: 11/03/21 01:09 Dose: 20 meq Documented by: - Exam Quality Assessment: Supplemental Oxygen General: Alert, Oriented Neck: Supple Lungs: Clear to Auscultation, Normal Respiratory Effort Cardiovascular: Regular Rate, Regular Rhythm GI/Abdominal Exam: Normal Bowel Sounds, Soft, Non-Tender Extremities: No Pedal Edema - Patient Data Result Diagrams: 11/02/21 22:15 11/04/21 06:20 Sepsis Event Note - Evaluation Sepsis Screening Result: No Definite Risk - Focused Exam Vital Signs: Vital Signs Temp Pulse Pulse Resp BP BP Pulse Ox 11/09/21 13:08 11/09/21 12:00 96.7 F L 85 23 H 121/71 93 L 11/09/21 09:58 11/09/21 07:42 97.8 F 55 L 23 H 118/69 91 L 11/09/21 06:10 65 118/68 11/09/21 06:00 11/09/21 02:00 Pulse Ox Pulse Ox 11/09/21 13:08 93 L 11/09/21 12:00 11/09/21 09:58 96 11/09/21 07:42 11/09/21 06:10 11/09/21 06:00 95 11/09/21 02:00 94 L - Problem List Review Problem List Initiated/Reviewed/Updated: Yes - My Orders Last 24 Hours: My Active Orders 11/10/21 05:15 BASIC METABOLIC PANEL,BMP [CHEM] AM CBC WITH AUTO DIFF [HEME] AM - Plan Plan:: Patient is a 71-year-old male with a history of atrial fibrillation on chronic anticoagulation with Eliquis, recent COVID-19 diagnosis, recent hospitalization from 10-29 through 10-31 for Covid pneumonia, A. fib with RVR who presents with in itial complaints of gastrointestinal symptoms and was found to have hypoxia and A. fib with rapid ventricular response. # Acute hypoxic respiratory failure -Patient initially required 2L via nasal cannula -Chest x-ray showed worsening infiltrate concerning for multifocal pneumonia on admission -had required high flow nasal cannula up to 85% FiO2 on 11-04-21 with repeat CXR 11/04/21 worsening pulmonary infiltrates - given findings and likely Pa/FIo2 ratio concerning for ARDS -oxygenation improved on 11-05-21 -patient is requiring oxygen via nasal cannula currently 3 L - continued improvement -Hypoxia multifactorial secondary to multifocal pneumonia versus recent COVID-19 inflammation and infection versus flash pulmonary edema from recurrent atrial fibrillation with rapid ventricular response versus combination. -Blood cultures X2 negative - patient treated empirically with IV Zosyn - end date 11/08/21 -Supplemental oxygen to maintain oxygen saturations greater than 90% # Atrial fibrillation with rapid ventricular response -Likely secondary to recent COVID-19 infection, possible new secondary bacterial pneumonia contributing, dexamethasone for treatment of COVID-19 could also be contributing. Recent TSH was normal and patient was on levothyroxine. -Patient was able be weaned off of diltiazem drip 11/04/21converted to sinus 11/05/21 - continue PO metoprolol 75 mg BID -Continue Eliquis -Telemetry monitoring -TTE as outpatient # COVID 19 infection -Positive tests 10-20-21 -prior treatments included remdesivir (prior hospitalization), Tocilizumab 11/03/21 - Patient completed course of dexamethaso ne 11/07/21 # Hypothyroidismcontinue levothyroxine DietGeneral DVT prophylaxis Eliquis Dispocontinued inpatient due to hypoxic respiratory failure -approaching medical stability, possible within the next 1-2 days pending oxygen requirements, will discharge with home oxygen
[2021-11-10] MEDS: Albuterol 6.7 GM Inhaler INH SCH ×4 (01:19→13:31)
[2021-11-10] MEDS: Metoprolol Tartrate 50 MG Tab PO SCH (05:33)
[2021-11-10] MEDS: Levothyroxine 50 MCG Tab PO SCH (05:34)
[2021-11-10 07:01] LABS: ANION GAP 12.9 mEq/L (7-13); CHLORIDE,CL 107 mmol/L (98-107); SODIUM,NA 143 mmol/L (136-145)
[2021-11-10] MEDS: Apixaban 5 MG Tab PO SCH (08:17)
[2021-11-10] MEDS: Aspirin 81 MG Tab.EC PO SCH (08:17)
[2021-11-10 12:12] VITALS: BP 124/73; PULSE 87
--- NOTE | 2021-11-10 13:38 | PCM.DCSUM1 ---
Discharge Summary - Hospital Course Free Text/Narrative:: Patient is a 71-year-old male with a history of atrial fibrillation on chronic anticoagulation with Eliquis, recent COVID-19 diagnosis, recent hospitalization from 10-29 through 10-31 for Covid pneumonia, A. fib with RVR who presents with initial complaints of gastrointestinal symptoms and was found to have hypoxia and A. fib with rapid ventricular response. # Acute hypoxic respiratory failure -oxygen saturations were below 85% on 11/02/21 Patient initially required 2L via nasal cannula -Chest x-ray showed worsening infiltrate concerning for multifocal pneumonia on admission -had required high flow nasal cannula up to 85% FiO2 on 11-04-21 with repeat CXR 11/04/21 worsening pulmonary infiltrates -patient is requiring oxygen via nasal cannula currently 1-2 L will discharge home with continued home oxygen -Hypoxia multifactorial secondary to multifocal pneumonia versus recent COVID-19 inflammation and infection versus flash pulmonary edema from recurrent atrial fibrillation with rapid ventricular response versus combination. -Blood cultures X2 negative - patient treated empirically with IV Zosyn - end date 11/08/21 -Supplemental oxygen to maintain oxygen saturations greater than 90% # Atrial fibrillation with rapid ventricular response -Likely secondary to recent COVID-19 infection, possible new secondary bacterial pneumonia contributing, dexamethasone for treatment of COVID-19 could also be contributing. Recent TSH was normal and patient was on levothyroxine. -Patient was able be weaned off of diltiazem drip 11/04/21converted to sinus 11/05/21 - continue PO metoprolol -Continue Eliquis # COVID 19 infection -Positive tests 10-20-21 -prior treatments included remdesivir (prior hospitalization), Tocilizumab 11/03/21 - Patient completed course of dexame thasone 11/07/21 # Hypothyroidismcontinue levothyroxine Diagnosis: Stroke: No - Discharge Data Discharge Date: 11/10/21 Discharge Disposition: Home, Self-Care 01 Condition: Good - Referral to Home Health Primary Care Physician: PCP None - Patient Instructions Diet: Heart Healthy Diet Activity: As Tolerated - Discharge Plan *PRESCRIPTION DRUG MONITORING PROGRAM REVIEWED*: Not Applicable *COPY OF PRESCRIPTION DRUG MONITORING REPORT IN PATIENT ERICK: Not Applicable Prescriptions/Med Rec: Metoprolol Tartrate [Lopressor] 75 mg PO BID #90 tablet Home Medications: Home Meds Aspirin [Adult Low Dose Aspirin EC] 81 mg PO DAILY 02/19/18 [History] Ibuprofen 200 mg PO ASDIRECTED PRN 02/19/18 [History] Apixaban [Eliquis] 5 mg PO BID 10/29/21 [History] Levothyroxine [Synthroid] 50 mcg PO ACBREAKFAST 10/29/21 [History] Pravastatin [Pravachol] 20 mg PO BEDTIME 11/09/21 [History] Ascorbic Acid/Ascorbate Sodium [Vitamin C 500 mg Tablet Chew] 500 mg PO BID 11/10/21 [History] Cholecalciferol (Vitamin D3) [Vitamin D] 5,000 unit PO DAILY 11/10/21 [History] Metoprolol Tartrate [Lopressor] 75 mg PO BID #90 tablet 11/10/21 [Rx] Zinc Sulfate [Zinc] 50 mg PO DAILY 11/10/21 [History] Oxygen Therapy Mode: Nasal Cannula Patient Handouts: COVID-19: What to Do If You Are Sick- [facility] (02/09/2021) Referrals: Ulises Thompson MD [Physician] - - Discharge Summary/Plan Comment DC Time >30 min.: Yes (arranging home oxygen ) Total # of Minutes for Discharge Time: 35 - General Info Date of Service: 11/10/21 Admission Dx/Problem (Free Text: Admission Diagnosis/Problem Admission Diagnosis/Problem Paroxysmal atrial fibrillation with rapid ventricular response Subjective Update: remained stable, continued to have improving oxygen sats, on 1-2 l/min NC oxygen no associated abd pain no chills duration of illness is days Functional Status: Reports: Pain Controlled, Tolerating Diet, Ambulating - Review of Systems General: Reports: Weakness Pulmonary: Reports: Shortness of Breath (mild) Cardiovascular: Denies: Chest Pain Gastrointestinal: Denies: Abdominal Pain Neurological: Denies: Confusion - Patient Data Vitals - Most Recent: Last Vital Signs Temp 97.7 F 11/10/21 12:00 Pulse 87 11/10/21 12:00 Resp 23 H 11/10/21 12:00 BP 124/73 11/10/21 12:00 Pulse Ox 92 L 11/10/21 12:00 Weight - Most Recent: 234 lb 9.6 oz I&O - Last 24 hours: Intake & Output 11/09/21 11/10/21 11/10/21 22:59 06:59 14:59 Intake Total 900 100 500 Balance 900 100 500 Lab Results - Last 24 hrs: Laboratory Results - last 24 hr 11/10/21 11/10/21 Range/Units 06:33 06:33 WBC 3.0 L (5.0-10.0) 10^3/uL RBC 3.67 L (4.6-6.2) 10^6/uL Hgb 11.6 L D (14.0-18.0) g/dL Hct 35.6 L (40.0-54.0) % MCV 97.0 D (80-100) fL MCH 31.6 (27.0-34.0) pg MCHC 32.6 L (33.0-35.0) g/dL Plt Count 229 (150-450) 10^3/uL Neut % (Auto) 55.3 (42.2-75.2) % Lymph % (Auto) 31.3 (20.5-50.1) % [place] % (Auto) 9.7 H (2-8) % Eos % (Auto) 2.7 (1.0-3.0) % Baso % (Auto) 1.0 (0.0-1.0) % Add Manual Diff Yes Neutrophils % (Manual) 57 (42-75) % Lymphocytes % (Manual) 29 (20-50) % Monocytes % (Manual) 11 H (2-8) % Eosinophils % (Manual) 3 (1-3) % Polychromasia 1+ slight Sodium 143 (136-145) mmol/L Potassium 3.9 (3.5-5.1) mmol/L Chloride 107 (98-107) mmol/L Carbon Dioxide 27 (21-32) mmol/L Anion Gap 12.9 (7-13) mEq/L BUN 13 (7-18) mg/dL Creatinine 0.76 (0.70-1.30) mg/dL Est Cr Clr Drug Dosing 93.57 mL/min Estimated GFR (MDRD) > 60 Glucose 128 H (70-99) mg/dL Calcium 8.5 (8.5-10.1) mg/dL Med Orders - Current: Current Medications Acetaminophen (Acetaminophen 325 Mg Tab) 650 mg PO Q4H PRN PRN Reason: Pain (Mild 1-3)/fever Last Admin: 11/06/21 11:54 Dose: 650 mg Documented by: Albuterol (Albuterol 6.7 Gm Inhaler) 0 gm INH Q4HR [facility] Last Admin: 11/10/21 13:31 Dose: 2 puff Documented by: Albuterol/Ipratropium (Albuterol/Ipratropium 3.0-0.5 Mg/3 Ml Neb Soln) 3 ml NEB Q4H PRN PRN Reason: Shortness of Breath Apixaban (Apixaban 5 Mg Tab) 5 mg PO BID [facility] Last Admin: 11/10/21 08:17 Dose: 5 mg Documented by: Aspirin (Aspirin 81 Mg Tab.Ec) 81 mg PO DAILY [facility] Last Admin: 11/10/21 08:17 Dose: 81 mg Documented by: Levothyroxine Sodium (Levothyroxine 50 Mcg Tab) 50 mcg PO ACBREAKFAST [facility] Last Admin: 11/10/21 05:34 Dose: 50 mcg Documented by: Melatonin (Melatonin 3 Mg Tab) 9 mg PO BEDTIME PRN PRN Reason: Sleep Last Admin: 11/04/21 21:33 Dose: 9 mg Documented by: Metoprolol Tartrate (Metoprolol Tartrate 50 Mg Tab) 100 mg PO Q12H [facility] Last Admin: 11/10/21 05:33 Dose: 100 mg Documented by: Discontinued Medications Diltiazem HCl (Diltiazem 25 Mg/5 Ml Sdv) 10 mg IVPUSH ONETIME ONE Stop: 11/02/21 22:27 Last Admin: 11/02/21 22:46 Dose: 10 mg Documented by: Furosemide (Furosemide 20 Mg/2 Ml Vial) 20 mg IVPUSH ONETIME ONE Stop: 11/03/21 13:01 Last Admin: 11/03/21 13:58 Dose: 20 mg Documented by: Diltiazem HCl 125 mg/ Sodium (Chloride) 125 mls @ 5 mls/hr IV TITRATE [facility]; Protocol Last Titration: 11/04/21 09:39 Dose: 0 mg/hr, 0 mls/hr Documented by: Piperacillin Sod/Tazobactam (Sod 4.5 gm/ Sodium Chloride) 100 mls @ 200 mls/hr IV Q6HR [facility] Stop: 11/08/21 11:00 Last Admin: 11/08/21 05:08 Dose: 200 mls/hr Documented by: Tocilizumab 800 mg/ Sodium (Chloride) 140 mls @ 140 mls/hr IV ONETIME ONE Stop: 11/03/21 14:59 Last Admin: 11/03/21 14:08 Dose: 140 mls/hr Documented by: Metoprolol Tartrate (Metoprolol Tartrate 25 Mg Tab) 25 mg PO ONETIME ONE Stop: 11/03/21 00:17 Last Admin: 11/03/21 01:28 Dose: 25 mg Documented by: Metoprolol Tartrate (Metoprolol Tartrate 50 Mg Tab) 50 mg PO Q12H [facility] Stop: 11/05/21 06:00 Last Admin: 11/04/21 18:28 Dose: 50 mg Documented by: Metoprolol Tartrate (Metoprolol Tartrate 25 Mg Tab) 25 mg PO ONETIME ONE Stop: 11/04/21 09:16 Last Admin: 11/04/21 09:39 Dose: 25 mg Documented by: Metoprolol Tartrate (Metoprolol Tartrate 50 Mg Tab) 75 mg PO Q12H [facility] Last Admin: 11/05/21 05:40 Dose: 75 mg Documented by: Metoprolol Tartrate (Metoprolol Tartrate 25 Mg Tab) 25 mg PO ONETIME ONE Stop: 11/04/21 19:20 Last Admin: 11/04/21 19:53 Dose: 25 mg Documented by: Metoprolol Tartrate (Metoprolol Tartrate 25 Mg Tab) 25 mg PO ONETIME ONE Stop: 11/05/21 11:50 Last Admin: 11/05/21 14:12 Dose: Not Given Documented by: Potassium Chloride (Potassium Chloride 10 Meq Tab.Er) 20 meq PO ONETIME ONE Stop: 11/03/21 01:01 Last Admin: 11/03/21 01:09 Dose: 20 meq Documented by: - Exam General: Reports: Alert, Oriented Lungs: Reports: Normal Respiratory Effort, Decreased Breath Sounds Cardiovascular: Reports: Irregular Rhythm GI/Abdominal Exam: Normal Bowel Sounds, Soft Extremities: No Pedal Edema
== END 2021-11-10 15:45 | disposition home or self-care (01) | DRG 177 ==
LOC: DL.ED 19:52 → DL.MS 23:52
PROVIDERS: ADMIT Internal Medicine; ATTEND Internal Medicine
PROC: 8E0ZXY6 Isolation (ICD-10-PCS; principal; 2021-11-02)
PROC: 3E0333Z Introduction of Anti-inflammatory into Peripheral Vein, Percutaneous Approach (ICD-10-PCS; 2021-11-02)
DX: U07.1 COVID-19 (principal); J96.01 Acute respiratory failure with hypoxia; J15.9 Unspecified bacterial pneumonia; I48.0 Paroxysmal atrial fibrillation; E03.9 Hypothyroidism, unspecified; Z86.16 Personal history of COVID-19; Z79.01 Long term (current) use of anticoagulants; Z79.890 Hormone replacement therapy
CPT/HCPCS: 36415; 36600; 71045; 80048; 80053; 82150; 82803; 83605; 83690; 83735; 84484; 85025; 85379; 85610; 85730; 86140; 87040; 93005; 96374; 96376; 99285-25; A9270-GY; J1940; J2543; J3490; M0249; Q0249